=== PATIENT | female | born 1960 | race Caucasian/White ===

== ENCOUNTER 2017-07-05 11:22 | Emergency (ER) | payer MEDICARE, MEDICAID ==
[2017-07-05] MEDS ORDERED: NS 0.9% 1000 ML* 2,000 ML IV ONE (12:12)
--- NOTE | 2017-07-05 12:49 | RAD ---
Indication: Syncope. Fall. Comparison: No relevant prior exams available on the [facility] PACS for comparison. Technique: Upright AP 1218 hours Report: Clear lungs and pleural spaces. Negative for pneumothorax. The heart, pulmonary vasculature, and mediastinal contours are unremarkable. Unremarkable osseous structures and soft tissue contours. IMPRESSION: No evidence for acute intrathoracic disease.
--- NOTE | 2017-07-05 13:06 | RAD ---
Indication: Fall this morning. RIGHT temporal region tenderness. Comparison: No relevant prior exams available on the [facility] PACS for comparison. Technique: Noncontrast CT vertex of skull through foramen magnum. Report: The sulci, ventricles, and basal cisterns are normal for age. Jaquez matter white matter differentiation is preserved without evidence for edema. Decreased density in the periventricular and subcortical white matter while non-specific is most likely due to chronic microangiopathy. No intra or extra axial hemorrhage, mass, or fluid collection detected. Unremarkable visualized orbital contents. Indolent thickening of the inner table of the frontal bone. No suspicious calvarial or skull base lesions evident. Unremarkable scalp. The visualized paranasal sinuses and mastoid air spaces are clear. IMPRESSION: 1. No CT evidence for traumatic brain injury or acute intracranial process. 2. Stigmata of probable mild chronic small vessel ischemic disease.
[2017-07-05 13:07] LABS: Hematocrit 38 % (35-47); Hemoglobin 12.3 g/dl (12.0-16.0); Mean Corpuscular HGB Conc 32 g/dl (31-36); Mean Corpuscular Hemoglobin 28 pg (27-31); Mean Corpuscular Volume 87 fL (80-97); Mean Platelet Volume 9 um3 (7.4-10.4); Red Blood Count 4.37 10^6/ul (4.0-5.4); Red Cell Distribution Width 15 % (10.5-15); White Blood Count 10.3 10^3/ul (3.5-10.8)
--- NOTE | 2017-07-05 13:16 | RAD ---
INDICATION: Syncopal episode, fall. COMPARISON: No relevant prior exams available on the [facility] PACS for comparison. TECHNIQUE: Multidetector CT images foramen magnum to lung apices without contrast. Multiplanar reformation. REPORT: Normal vertebral alignment accounting for exam positioning without spondylolisthesis or subluxation at any level. Negative for cervical vertebral body or posterior element fracture. 0.6 cm sharply circumscribed hypodense lesion at the LEFT margin of the C3 vertebral body most likely represents a hemangioma or cyst. Negative for paravertebral hematoma. At C5-C6 there is severe disc space narrowing as well as a moderate dorsal disc osteophyte complex which results in mild to moderate acquired central canal stenosis. Uncinate process spurring results in mild RIGHT and moderate LEFT foraminal stenosis. At C6-C7 there is moderately severe disc space narrowing and moderate dorsal disc osteophyte complex with resulting mild to moderate acquired central canal stenosis. Uncinate process spurring and facet joint osteoarthritis results in mild RIGHT and moderately severe LEFT foraminal stenosis. IMPRESSION: 1. No evidence for traumatic cervical spine injury. 2. Multilevel degenerative spondylosis and posterior element osteoarthritis with resulting spinal stenosis as described. MRI is the most accurate way to assess etiology and magnitude of spinal stenosis.
[2017-07-05 13:23] LABS: ALT 30 U/L (7-52); AST 28 U/L (13-39); Albumin 4.1 g/dL (3.2-5.2); Alkaline Phosphatase 82 U/L (34-104); Anion Gap 8 mmol/L (2-11); Blood Urea Nitrogen 10 mg/dL (6-24); C Reactive Protein 17.77 mg/L (< 5.00); CO2 Carbon Dioxide 23 mmol/L (22-32); Calcium 9.5 mg/dL (8.6-10.3); Chloride 106 mmol/L (101-111); Creatine Kinase 174 U/L (10-223); EGFR African American 91.5 (>60); EGFR Non-African American 71.1 (>60); Globulin 3.1 g/dL (2-4); Glucose 101 mg/dL (70-100); Lipase 25 U/L (11.0-82.0); Magnesium 2.2 mg/dL (1.9-2.7); Potassium 3.7 mmol/L (3.5-5.0); Sodium 137 mmol/L (133-145); Total Protein 7.2 g/dL (6.4-8.9)
[2017-07-05 13:52] LABS: Acetaminophen < 15 mcg/mL; Alcohol < 10 mg/dL (<10); Salicylate < 2.50 mg/dL (<30)
[2017-07-05 14:03] LABS: TSH (Thyroid Stimulating Horm) 2.96 mcIU/mL (0.34-5.60)
[2017-07-05 15:46] LABS: Urine Bilirubin Negative (Negative); Urine Glucose Negative (Negative); Urine Nitrite Negative (Negative)
[2017-07-05 18:09] VITALS: BP 124/72
--- NOTE | 2017-07-05 21:44 | ED ---
Anna Taylor Alfonso, scribed for Ervin Hamilton MD on 07/05/17 at 1203 . Syncope/Near Syncope - HPI Summary HPI Summary: This patient is a 57 year old F presenting to [facility] accompanied by family with a chief complaint of syncope at approximately 0100 today. She states I think it was vasovagal and I was tired and was pooping at the same time. She also states I was on the floor and I didnt know how I got there. This syncopal episode was witnessed by a male who heard her moaning and there was a big thud when she hit the ground. The male states I didnt get an answer 3 times when asking if she was alright. A female family member states she had her pants down and there was still some feces on her. The patient rates the pain 6/10 in severity. Symptoms alleviated by spontaneous resolution. Patient reports dehydration (last night), constipation (with burning sensation), palpitations, right sided neck pain, dizziness, disorientation, and difficulty with memory ( not a recent onset). Male family member reports pt confusion, and hearing voices of another family members psychologist. Patient denies rhinorrhea, sore throat, diarrhea, vomiting, CP, SOB, loss of appetite, motor deficits, headache, vision changes, and difficulty with speech. Female family member denies head trauma. Pt denies recent illness. She denies having a syncopal episode in the past 10 years. PMHx includes sleep apnea, arthritis, and depression. - History Of Current Complaint Chief Complaint: EDSyncope Time Seen by Provider: 07/05/17 11:53 Hx Obtained From: Patient, Family/[employer]rain [employer] Onset/Duration: Sudden Onset - 0100, Resolved Timing: Constant Context: Witnessed Activity At Onset: Other - "I was tired and was pooping at the same time. Alleviating Factor(s): Spontaneous Resolution Associated Signs And Symptoms: Other - Patient reports dehydration (last night) , constipation (with burning sensation), palpitations, right sided neck pain, dizziness, disorientation, and difficulty with memory (not a recent onset). Male family member reports pt confusion, and hearing voices of another family members psychologist. Patient denies rhinorrhea, sore throat, diarrhea, vomiting, CP, SOB, loss of appetite, motor deficits, headache, vision changes, and difficulty with speech. Female family member denies head trauma. Frequency: Episodes x___ - 1 PMH/Surg Hx/FS Hx/Imm Hx Respiratory History: Reports: Hx Sleep Apnea Musculoskeletal History: Reports: Hx Arthritis Psychiatric History: Reports: Hx Depression - Cancer History Hx Chemotherapy: No Hx Radiation Therapy: No Infectious Disease History: No Infectious Disease History: Denies: Traveled Outside the [place] in Last 30 Days - Family History Known Family History: Positive: Other - Breast cancer Negative: Cardiac Disease, Diabetes - Social History Alcohol Use: None Hx Substance Use: No Substance Use Type: Reports: None Hx Tobacco Use: No Review of Systems Negative: Sore Throat, Nasal Discharge Positive: Palpitations. Negative: Chest Pain Negative: Shortness Of Breath Positive: Other - dehydration (last night), constipation (with burning sensation ); negative loss of appetite. Negative: Vomiting, Diarrhea Positive: Other - right sided neck pain; negative motor deficits Neurological: Other - dizziness, disorientation, and difficulty with memory ( not a recent onset), confusion, and hearing voices of another family members psychologist. ; Negative vision changes, difficulty with speech, and head trauma Positive: Syncope. Negative: Headache All Other Systems Reviewed And Are Negative: Yes Physical Exam Triage Information Reviewed: Yes Vital Signs On Initial Exam: Initial Vitals Temp Pulse Resp BP Pulse Ox 97.8 F 64 16 129/71 98 07/05/17 11:30 07/05/17 11:30 07/05/17 11:30 07/05/17 11:30 07/05/17 11:30 Vital Signs Reviewed: Yes Appearance: Positive: Well-Appearing, No Pain Distress Skin: Positive: Warm, Skin Color Reflects Adequate Perfusion, Dry Head/Face: Positive: Other - Mild tenderness right temporal area. Eyes: Positive: EOMI, KARL ENT: Positive: Other - Dry oral mucosa Neck: Positive: Supple, Other: - Mid neck near C3 mild tenderness to palpation. FROM. Respiratory/Lung Sounds: Positive: Clear to Auscultation, Breath Sounds Present Cardiovascular: Positive: RRR Abdomen Description: Positive: Nontender, Soft Bowel Sounds: Positive: Present Musculoskeletal: Positive: Normal, Strength/ROM Intact Neurological: Positive: Normal, Sensory/Motor Intact, Alert, Oriented to Person Place, Time Psychiatric: Positive: Affect/Mood Appropriate Diagnostics - Vital Signs Vital Signs Temp Pulse Resp BP Pulse Ox 07/05/17 11:30 97.8 F 64 16 129/71 98 - Laboratory Lab Results: Lab Results 07/05/17 07/05/17 07/05/17 Range/Units 12:45 12:45 12:45 WBC 10.3 (3.5-10.8) 10^3/ul RBC 4.37 (4.0-5.4) 10^6/ul Hgb 12.3 (12.0-16.0) g/dl Hct 38 (35-47) % MCV 87 (80-97) fL MCH 28 (27-31) pg MCHC 32 (31-36) g/dl RDW 15 (10.5-15) % Plt Count 233 (150-450) 10^3/ul MPV 9 (7.4-10.4) um3 Neut % (Auto) 68.2 (38-83) % Lymph % (Auto) 23.5 L (25-47) % [place] % (Auto) 6.8 (1-9) % Eos % (Auto) 1.0 (0-6) % Baso % (Auto) 0.5 (0-2) % Absolute Neuts (auto) 7.0 (1.5-7.7) 10^3/ul Absolute Lymphs (auto) 2.4 (1.0-4.8) 10^3/ul Absolute Monos (auto) 0.7 (0-0.8) 10^3/ul Absolute Eos (auto) 0.1 (0-0.6) 10^3/ul Absolute Basos (auto) 0.1 (0-0.2) 10^3/ul Absolute Nucleated RBC 0 10^3/ul Nucleated RBC % 0 INR (Anticoag Therapy) 1.15 H (0.89-1.11) APTT 33.4 (26.0-36.3) seconds Sodium 137 (133-145) mmol/L Potassium 3.7 (3.5-5.0) mmol/L Chloride 106 (101-111) mmol/L Carbon Dioxide 23 (22-32) mmol/L Anion Gap 8 (2-11) mmol/L BUN 10 (6-24) mg/dL Creatinine 0.83 (0.51-0.95) mg/dL Est GFR ( Amer) 91.5 (>60) Est GFR (Non-Af Amer) 71.1 (>60) BUN/Creatinine Ratio 12.0 (8-20) Glucose 101 H (70-100) mg/dL Lactic Acid (0.5-2.0) mmol/L Calcium 9.5 (8.6-10.3) mg/dL Magnesium 2.2 (1.9-2.7) mg/dL Total Bilirubin 0.40 (0.2-1.0) mg/dL AST 28 (13-39) U/L ALT 30 (7-52) U/L Alkaline Phosphatase 82 (34-104) U/L Total Creatine Kinase 174 (10-223) U/L CK-MB (CK-2) 2.4 (0.6-6.3) ng/mL Troponin I 0.00 (<0.04) ng/mL C-Reactive Protein 17.77 H (< 5.00) mg/L Total Protein 7.2 (6.4-8.9) g/dL Albumin 4.1 (3.2-5.2) g/dL Globulin 3.1 (2-4) g/dL Albumin/Globulin Ratio 1.3 (1-3) Lipase 25 (11.0-82.0) U/L TSH 2.96 (0.34-5.60) mcIU/mL Urine Color Urine Appearance Urine pH (5-9) Ur Specific [place] (1.010-1.030) Urine Protein (Negative) Urine Ketones (Negative) Urine Blood (Negative) Urine Nitrate (Negative) Urine Bilirubin (Negative) Urine Urobilinogen (Negative) Ur Leukocyte Esterase (Negative) Urine Glucose (Negative) Salicylates < 2.50 (<30) mg/dL Acetaminophen < 15 mcg/mL Serum Alcohol < 10 (<10) mg/dL 07/05/17 07/05/17 Range/Units 12:45 14:49 WBC (3.5-10.8) 10^3/ul RBC (4.0-5.4) 10^6/ul Hgb (12.0-16.0) g/dl Hct (35-47) % MCV (80-97) fL MCH (27-31) pg MCHC (31-36) g/dl RDW (10.5-15) % Plt Count (150-450) 10^3/ul MPV (7.4-10.4) um3 Neut % (Auto) (38-83) % Lymph % (Auto) (25-47) % [place] % (Auto) (1-9) % Eos % (Auto) (0-6) % Baso % (Auto) (0-2) % Absolute Neuts (auto) (1.5-7.7) 10^3/ul Absolute Lymphs (auto) (1.0-4.8) 10^3/ul Absolute Monos (auto) (0-0.8) 10^3/ul Absolute Eos (auto) (0-0.6) 10^3/ul Absolute Basos (auto) (0-0.2) 10^3/ul Absolute Nucleated RBC 10^3/ul Nucleated RBC % INR (Anticoag Therapy) (0.89-1.11) APTT (26.0-36.3) seconds Sodium (133-145) mmol/L Potassium (3.5-5.0) mmol/L Chloride (101-111) mmol/L Carbon Dioxide (22-32) mmol/L Anion Gap (2-11) mmol/L BUN (6-24) mg/dL Creatinine (0.51-0.95) mg/dL Est GFR ( Amer) (>60) Est GFR (Non-Af Amer) (>60) BUN/Creatinine Ratio (8-20) Glucose (70-100) mg/dL Lactic Acid 0.6 (0.5-2.0) mmol/L Calcium (8.6-10.3) mg/dL Magnesium (1.9-2.7) mg/dL Total Bilirubin (0.2-1.0) mg/dL AST (13-39) U/L ALT (7-52) U/L Alkaline Phosphatase (34-104) U/L Total Creatine Kinase (10-223) U/L CK-MB (CK-2) (0.6-6.3) ng/mL Troponin I (<0.04) ng/mL C-Reactive Protein (< 5.00) mg/L Total Protein (6.4-8.9) g/dL Albumin (3.2-5.2) g/dL Globulin (2-4) g/dL Albumin/Globulin Ratio (1-3) Lipase (11.0-82.0) U/L TSH (0.34-5.60) mcIU/mL Urine Color Straw Urine Appearance Clear Urine pH 6.0 (5-9) Ur Specific [place] 1.004 L (1.010-1.030) Urine Protein Negative (Negative) Urine Ketones Trace H (Negative) Urine Blood Negative (Negative) Urine Nitrate Negative (Negative) Urine Bilirubin Negative (Negative) Urine Urobilinogen Negative (Negative) Ur Leukocyte Esterase Negative (Negative) Urine Glucose Negative (Negative) Salicylates (<30) mg/dL Acetaminophen mcg/mL Serum Alcohol (<10) mg/dL Result Diagrams: 07/05/17 12:45 07/05/17 12:45 Lab Statement: Any lab studies that have been ordered have been reviewed, and results considered in the medical decision making process. - Radiology CXR Radiology Interpretation Completed By: Radiologist - No evidence for acute intrathoracic disease. ED physician has reviewed this radiology report and agrees. - CT Brain CT Interpretation Completed By: Radiologist - 1. No CT evidence for traumatic brain injury or acute intracranial process. 2. Stigmata of probable mild chronic small vessel ischemic disease. ED physician has reviewed this radiology report and agrees. C-Spine CT Interpretation Completed By: Radiologist - 1. No evidence for traumatic cervical spine injury. 2. Multilevel degenerative spondylosis and posterior element osteoarthritis with resulting spinal stenosis as described. MRI is the most accurate way to assess etiology and magnitude of spinal stenosis. ED physician has reviewed this radiology report and agrees. - EKG 1148 Cardiac Rate: NL - BPM 67 EKG Rhythm: Sinus Rhythm ST Segment: Normal Ectopy: None Course/Dx Course Of Treatment: DISCUSSED RESULTS WITH PATINET/FAMILY. THEY REQUEST A MHE. DISCHARGE HOME AFTER MHE. NO CRITICAL CARE TIME. - Diagnoses Provider Diagnoses: Syncope, Mental health problem Discharge - Discharge Plan Condition: Stable Disposition: HOME Patient Education Materials: Syncope (ED) Referrals: [facility] [Outside] - 07/06/17 (Keep your schedule appointment) Asher Interiano MD [Primary Care Provider] - Additional Instructions: FOLLOW UP WITH YOUR DOCTOR. RETURN TO THE EMERGENCY DEPARTMENT FOR ANY WORSENING OF YOUR CONDITION OR QUESTIONS OR CONCERNS. The documentation as recorded by the Anna taylor Alfonso accurately reflects the service I personally performed and the decisions made by me, Ervin Hamilton MD.
== END 2017-07-05 19:39 | disposition home or self-care (01) ==
LOC: ED 11:22
DX: R55 Syncope and collapse (principal); F99 Mental disorder, not otherwise specified; W19.XXXA Unspecified fall, initial encounter; Y92.9 Unspecified place or not applicable; F32.9 Major depressive disorder, single episode, unspecified; M19.90 Unspecified osteoarthritis, unspecified site
CPT/HCPCS: 36415; 70450; 71010; 72125; 80053; 80320; 80329; 81003; 82550; 82553; 83605; 83690; 83735; 84443; 84484; 85025; 85610; 85730; 86140; 93005; 96360; 99284; G0480

== ENCOUNTER → 2017-07-08 16:45 | Emergency (ER) | payer MEDICARE, MEDICAID ==
[2017-07-08 18:20] LABS: Hematocrit 39 % (35-47); Hemoglobin 12.4 g/dl (12.0-16.0); Mean Corpuscular HGB Conc 32 g/dl (31-36); Mean Corpuscular Hemoglobin 28 pg (27-31); Mean Corpuscular Volume 88 fL (80-97); Mean Platelet Volume 9 um3 (7.4-10.4); Red Cell Distribution Width 15 % (10.5-15); White Blood Count 10.9 10^3/ul (3.5-10.8)
[2017-07-08 18:40] LABS: ALT 25 U/L (7-52); AST 28 U/L (13-39); Alkaline Phosphatase 78 U/L (34-104); Anion Gap 5 mmol/L (2-11); BUN/Creatinine Ratio 14.3 (8-20); Blood Urea Nitrogen 12 mg/dL (6-24); CO2 Carbon Dioxide 27 mmol/L (22-32); Calcium 9.6 mg/dL (8.6-10.3); Chloride 106 mmol/L (101-111); EGFR African American 90.2 (>60); EGFR Non-African American 70.1 (>60); Globulin 3.1 g/dL (2-4); Glucose 109 mg/dL (70-100); Potassium 3.6 mmol/L (3.5-5.0); Sodium 138 mmol/L (133-145); Total Protein 7.1 g/dL (6.4-8.9)
[2017-07-08 18:40] LABS: Urine Bilirubin Negative (Negative); Urine Glucose Negative (Negative); Urine Nitrite Negative (Negative)
[2017-07-08 18:43] LABS: Urine Bacteria 1+ (Absent)
[2017-07-08 18:43] LABS: Benzodiazepine Urine Screen None Detected (None Detect)
[2017-07-08 18:46] LABS: Acetaminophen < 15 mcg/mL; Alcohol < 10 mg/dL (<10); Salicylate < 2.50 mg/dL (<30)
[2017-07-08 18:52] LABS: TSH (Thyroid Stimulating Horm) 2.59 mcIU/mL (0.34-5.60)
[2017-07-09 10:35] VITALS: BP 139/85
--- NOTE | 2017-07-09 18:46 | ED ---
Abel Taylor Angela, scribed for Jorge Pantoja MD on 07/09/17 at 1012 . Progress - Progress Note Progress Note: This patient is a 57 year old female brought in by police 945 to [facility]. This pt was signed out from Dr. Villegas to follow up with E recommendation. Dr. Frank consulted with this pt. The pt has auditory hallucinations and takes injection of Risperidone at [facility]. Dr. Frank recommends the pt to be discharged. Pt will be discharged to home in stable condition with a diagnosis of schizoaffective disorder. Course/Dx - Course Course Of Treatment: This pt was signed out from Dr. Villegas to follow up with E recommendation. Dr. Frank consulted with this pt. The pt has auditory hallucinations and takes medications at [facility]. Dr. Frank recommends the pt to be discharged. Pt will be discharged to home in stable condition with a diagnosis of schizoaffective disorder. - Diagnoses Provider Diagnoses: Schizoaffective disorder The documentation as recorded by the Abel taylor Angela accurately reflects the service I personally performed and the decisions made by in, Jorge Pantoja MD.
== END | disposition home or self-care (01) ==
LOC: ED 16:45
DX: F25.9 Schizoaffective disorder, unspecified (principal)
CPT/HCPCS: 36415; 80053; 80307; 80320; 80329; 81003; 81015; 84443; 85025; 87086; 99284; G0480

== ENCOUNTER 2017-07-23 15:12 | Inpatient (IN) | payer MEDICARE, MEDICAID ==
[2017-07-23 16:16] LABS: Hematocrit 39 % (35-47); Hemoglobin 12.5 g/dl (12.0-16.0); Mean Corpuscular HGB Conc 32 g/dl (31-36); Mean Corpuscular Hemoglobin 28 pg (27-31); Mean Corpuscular Volume 87 fL (80-97); Mean Platelet Volume 9 um3 (7.4-10.4); Red Blood Count 4.42 10^6/ul (4.0-5.4); Red Cell Distribution Width 15 % (10.5-15); White Blood Count 9.2 10^3/ul (3.5-10.8)
[2017-07-23 16:38] LABS: ALT 26 U/L (7-52); AST 22 U/L (13-39); Albumin 3.9 g/dL (3.2-5.2); Alkaline Phosphatase 77 U/L (34-104); Anion Gap 7 mmol/L (2-11); Blood Urea Nitrogen 6 mg/dL (6-24); CO2 Carbon Dioxide 24 mmol/L (22-32); Calcium 9.1 mg/dL (8.6-10.3); Chloride 108 mmol/L (101-111); EGFR African American 102.8 (>60); EGFR Non-African American 79.9 (>60); Glucose 119 mg/dL (70-100); Potassium 3.6 mmol/L (3.5-5.0); Sodium 139 mmol/L (133-145); Total Protein 6.9 g/dL (6.4-8.9)
[2017-07-23 16:46] LABS: Acetaminophen < 15 mcg/mL; Alcohol < 10 mg/dL (<10); Salicylate < 2.50 mg/dL (<30)
[2017-07-23 17:01] LABS: Urine Bilirubin Negative (Negative); Urine Glucose Negative (Negative); Urine Nitrite Negative (Negative)
[2017-07-23 17:02] LABS: TSH (Thyroid Stimulating Horm) 1.88 mcIU/mL (0.34-5.60)
[2017-07-23 17:14] LABS: Benzodiazepine Urine Screen None Detected (None Detect)
--- NOTE | 2017-07-23 21:37 | ED ---
Jonna Taylor Thomas, scribed for Jorge Nascimento MD on 07/23/17 at 1613 . Psychiatric Complaint - HPI Summary HPI Summary: The pt is a 57 y/o F BIB police after she was combative with neighbors at her place of residence. She is concerned that there are microphones under her carpets and that [employer] are monitoring her. However, she denies paranoia when asked. She was hospitalized for schizoaffective disorder 30 years ago. She is on paroxetine, Risperdal, and Topiramate. She has been taking her medications as directed. She additionally c/o insomnia and I feel like I am sleep-walking. PMHx: osteoarthritis, schizoaffective disorder. PSHx: none. SHx : no smoking, no alcohol use, no illicit drugs. FHx: depression. - History Of Current Complaint Chief Complaint: EDMentalHealth Time Seen by Provider: 07/23/17 15:42 Hx Obtained From: Patient, Other: - She is BIB Police Onset/Duration: Still Present Timing: Constant Severity Currently: Moderate Aggravating Factor(s): Nothing Alleviating Factor(s): Nothing Associated Signs And Symptoms: Positive: Paranoid Behavior, Sleep Disturbance Related History: Positive For: Prior Psychiatric Issues PMH/Surg Hx/FS Hx/Imm Hx Previously Healthy: No Respiratory History: Reports: Hx Sleep Apnea Musculoskeletal History: Reports: Hx Arthritis Psychiatric History: Reports: Hx Depression, Other Psychiatric Issues/Disorders - Schizoaffective disorder Denies: Hx Eating Disorder, Hx of Violent Episodes Against Others - Cancer History Hx Chemotherapy: No Hx Radiation Therapy: No - Surgical History Surgery Procedure, Year, and Place: None Infectious Disease History: No Infectious Disease History: Denies: Traveled Outside the [place] in Last 30 Days - Family History Known Family History: Positive: Other - Depression Negative: Cardiac Disease, Diabetes - Social History Alcohol Use: None Hx Substance Use: No Substance Use Type: Reports: None Hx Tobacco Use: No Smoking Status (MU): Never Smoked Tobacco Review of Systems Neurological: Other - Insomnia Psychological: Other - Paranoia, combativeness, "I feel like I am sleep-walking " All Other Systems Reviewed And Are Negative: Yes Physical Exam Triage Information Reviewed: Yes Vital Signs On Initial Exam: Initial Vitals Temp Pulse Resp BP Pulse Ox 98.1 F 68 20 124/82 95 07/23/17 15:21 07/23/17 15:21 07/23/17 15:21 07/23/17 15:21 07/23/17 15:21 Vital Signs Reviewed: Yes Appearance: Positive: Well-Appearing, No Pain Distress Skin: Positive: Warm, Skin Color Reflects Adequate Perfusion Head/Face: Positive: Normal Head/Face Inspection Eyes: Positive: EOMI Neck: Positive: Supple, Nontender Respiratory/Lung Sounds: Positive: Clear to Auscultation, Breath Sounds Present Cardiovascular: Positive: RRR. Negative: Murmur Abdomen Description: Positive: Nontender Musculoskeletal: Positive: Strength/ROM Intact Neurological: Positive: Sensory/Motor Intact, Alert, Oriented to Person Place, Time, CN Intact II-III Psychiatric: Positive: Anxious, Other - paranoid delusions verbalized to me. Believes microphones under her carpet and [employer] priests are watching her. - [place] Coma Scale Best Eye Response: 4 - Spontaneous Best Motor Response: 6 - Obeys Commands Best Verbal Response: 5 - Oriented Diagnostics - Vital Signs Vital Signs Temp Pulse Resp BP Pulse Ox 07/23/17 15:21 98.1 F 68 20 124/82 95 - Laboratory Lab Results: Lab Results 07/23/17 07/23/17 07/23/17 Range/Units 16:01 16:01 16:45 WBC 9.2 (3.5-10.8) 10^3/ul RBC 4.42 (4.0-5.4) 10^6/ul Hgb 12.5 (12.0-16.0) g/dl Hct 39 (35-47) % MCV 87 (80-97) fL MCH 28 (27-31) pg MCHC 32 (31-36) g/dl RDW 15 (10.5-15) % Plt Count 254 (150-450) 10^3/ul MPV 9 (7.4-10.4) um3 Neut % (Auto) 69.2 (38-83) % Lymph % (Auto) 21.4 L (25-47) % [place] % (Auto) 7.5 (1-9) % Eos % (Auto) 1.2 (0-6) % Baso % (Auto) 0.7 (0-2) % Absolute Neuts (auto) 6.4 (1.5-7.7) 10^3/ul Absolute Lymphs (auto) 2.0 (1.0-4.8) 10^3/ul Absolute Monos (auto) 0.7 (0-0.8) 10^3/ul Absolute Eos (auto) 0.1 (0-0.6) 10^3/ul Absolute Basos (auto) 0.1 (0-0.2) 10^3/ul Absolute Nucleated RBC 0 10^3/ul Nucleated RBC % 0 Sodium 139 (133-145) mmol/L Potassium 3.6 (3.5-5.0) mmol/L Chloride 108 (101-111) mmol/L Carbon Dioxide 24 (22-32) mmol/L Anion Gap 7 (2-11) mmol/L BUN 6 (6-24) mg/dL Creatinine 0.75 (0.51-0.95) mg/dL Est GFR ( Amer) 102.8 (>60) Est GFR (Non-Af Amer) 79.9 (>60) BUN/Creatinine Ratio 8.0 (8-20) Glucose 119 H (70-100) mg/dL Calcium 9.1 (8.6-10.3) mg/dL Total Bilirubin 0.50 (0.2-1.0) mg/dL AST 22 (13-39) U/L ALT 26 (7-52) U/L Alkaline Phosphatase 77 (34-104) U/L Total Protein 6.9 (6.4-8.9) g/dL Albumin 3.9 (3.2-5.2) g/dL Globulin 3.0 (2-4) g/dL Albumin/Globulin Ratio 1.3 (1-3) TSH 1.88 (0.34-5.60) mcIU/mL Urine Color Urine Appearance Urine pH (5-9) Ur Specific [place] (1.010-1.030) Urine Protein (Negative) Urine Ketones (Negative) Urine Blood (Negative) Urine Nitrate (Negative) Urine Bilirubin (Negative) Urine Urobilinogen (Negative) Ur Leukocyte Esterase (Negative) Urine Glucose (Negative) Salicylates < 2.50 (<30) mg/dL Urine Opiates Screen None detected (None Detect) Acetaminophen < 15 mcg/mL Ur Barbiturates Screen None detected (None Detect) Ur Phencyclidine Scrn None detected (None Detect) Ur Amphetamines Screen None detected (None Detect) U Benzodiazepines Scrn None detected (None Detect) Urine Cocaine Screen None detected (None Detect) U Cannabinoids Screen None detected (None Detect) Serum Alcohol < 10 (<10) mg/dL 07/23/17 Range/Units 16:45 WBC (3.5-10.8) 10^3/ul RBC (4.0-5.4) 10^6/ul Hgb (12.0-16.0) g/dl Hct (35-47) % MCV (80-97) fL MCH (27-31) pg MCHC (31-36) g/dl RDW (10.5-15) % Plt Count (150-450) 10^3/ul MPV (7.4-10.4) um3 Neut % (Auto) (38-83) % Lymph % (Auto) (25-47) % [place] % (Auto) (1-9) % Eos % (Auto) (0-6) % Baso % (Auto) (0-2) % Absolute Neuts (auto) (1.5-7.7) 10^3/ul Absolute Lymphs (auto) (1.0-4.8) 10^3/ul Absolute Monos (auto) (0-0.8) 10^3/ul Absolute Eos (auto) (0-0.6) 10^3/ul Absolute Basos (auto) (0-0.2) 10^3/ul Absolute Nucleated RBC 10^3/ul Nucleated RBC % Sodium (133-145) mmol/L Potassium (3.5-5.0) mmol/L Chloride (101-111) mmol/L Carbon Dioxide (22-32) mmol/L Anion Gap (2-11) mmol/L BUN (6-24) mg/dL Creatinine (0.51-0.95) mg/dL Est GFR ( Amer) (>60) Est GFR (Non-Af Amer) (>60) BUN/Creatinine Ratio (8-20) Glucose (70-100) mg/dL Calcium (8.6-10.3) mg/dL Total Bilirubin (0.2-1.0) mg/dL AST (13-39) U/L ALT (7-52) U/L Alkaline Phosphatase (34-104) U/L Total Protein (6.4-8.9) g/dL Albumin (3.2-5.2) g/dL Globulin (2-4) g/dL Albumin/Globulin Ratio (1-3) TSH (0.34-5.60) mcIU/mL Urine Color Yellow Urine Appearance Cloudy Urine pH 5.0 (5-9) Ur Specific [place] 1.017 (1.010-1.030) Urine Protein Negative (Negative) Urine Ketones Trace H (Negative) Urine Blood Negative (Negative) Urine Nitrate Negative (Negative) Urine Bilirubin Negative (Negative) Urine Urobilinogen Negative (Negative) Ur Leukocyte Esterase Negative (Negative) Urine Glucose Negative (Negative) Salicylates (<30) mg/dL Urine Opiates Screen (None Detect) Acetaminophen mcg/mL Ur Barbiturates Screen (None Detect) Ur Phencyclidine Scrn (None Detect) Ur Amphetamines Screen (None Detect) U Benzodiazepines Scrn (None Detect) Urine Cocaine Screen (None Detect) U Cannabinoids Screen (None Detect) Serum Alcohol (<10) mg/dL Result Diagrams: 07/23/17 16:01 07/23/17 16:01 Lab Statement: Any lab studies that have been ordered have been reviewed, and results considered in the medical decision making process. Course/Dx - Course Course Of Treatment: 57 yr old with paranoid delusions. Psych eval. - Differential Dx/Clinical Impression Provider Diagnosis: Psychosis Discharge - Discharge Plan Condition: Good Disposition: OTHER Discharge Disposition Comment: sign out Dr Mitchell 2200 with psych eval and dispo pending. Referrals: Asher Interiano MD [Primary Care Provider] - The documentation as recorded by the Jonna taylor Thomas accurately reflects the service I personally performed and the decisions made by oh, Jorge Nascimento MD.
[2017-07-24] MEDS ORDERED: Topiramate TAB(*) 25 MG PO ONE (01:32)
[2017-07-24] MEDS ORDERED: Al Hydrox/Mg Hydrox/Simet LIQ* 30 ML UDC PO PRN (04:07)
[2017-07-24] MEDS ORDERED: Vitamin THERAPEUTIC TAB ONE (05:07)
[2017-07-24] MEDS ORDERED: PARoxetine HCL TAB* 20 MG ONE (05:07)
[2017-07-24] MEDS ORDERED: PARoxetine HCL TAB* 10 MG ONE (05:07)
[2017-07-24] MEDS: Vitamin THERAPEUTIC TAB PO SCH (08:24)
[2017-07-24] MEDS ORDERED: PARoxetine HCL TAB* 10 MG PO SCH (09:00)
--- NOTE | 2017-07-24 14:34 | PN ---
[facility]: Group Therapy Note - Service Type Service Type: 14918 Group Psychotherapy - Cognitive Behavioral Group Therapy ( CBT):Patient was attentive and participatory in CBT programming this morning, and remained in good behavioral control. Patient expressed positive insights regarding relevant treatment interventions and goals.
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
[2017-07-24] MEDS ORDERED: PARoxetine HCL TAB* 20 MG PO SCH (21:00)
[2017-07-24] MEDS: risperiDONE TAB* 2 MG PO SCH (21:05)
[2017-07-25] MEDS: Vitamin THERAPEUTIC TAB PO SCH (09:40)
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
[2017-07-26] MEDS: Vitamin THERAPEUTIC TAB PO SCH (09:27)
[2017-07-26] MEDS: risperiDONE TAB* 2 MG PO SCH ×2 (17:55→20:32)
[2017-07-27] MEDS: Vitamin THERAPEUTIC TAB PO SCH (08:51)
--- NOTE | 2017-07-27 15:30 | PN ---
Subjective - Subjective Subjective: Juan c/o poor sleep last night but feeling better able to organize her thoughts today. She denies side effects from prescribed meds. Per staff, she is social with peers, and adherent to unit's routines. Objective - Appearance Appearance: Healthy Appearing Dysmorphic Features: No Hygiene: Normal Grooming: Well Kept - Behavior Motor Skills: Fine Motor Skills: Normal, Gross Motor Skills: Normal, Gait: Normal Psychomotor Activities: Normal Exhibits Abnormal Movement: No - Attitude and Relatedness Attitude and Relatedness: Cooperative Eye Contact: Fair - Speech Quality: Unpressured Latencies: Normal Quantity: Appropriate - Mood Patient's Decription of Mood: "Okay" - Affect Observed Affect: Non-labile Affect Consistent with: Euthymia - Thought Process Patient's Thought Process: Coherent Thought Content: No Passive Wish, No Suicidal Planning, No Homicidal Ideation, No Paranoid Ideation - Sensorium Delusions: No Experiencing Hallucinations: No, Sensorium is Clear - Level of Consciousness Level of Consciousness: Alert Orientation: Yes Intact - Impulse Control Impulse Control: Intact - Insight and Judgement Insight and Judgement: Fair Assessment - Assessment Merits Inpatient Hospitalization: For Ongoing Evaluation, Consolidate Improvements, For Discharge Planning Inpatient DSM-IV Dx: Schizophrenia; Plan - Treatment Plan Medications: Current Medications Acetaminophen (Tylenol Tab*) 650 mg PO Q4H PRN PRN Reason: PAIN or TEMP > 101 F Al Hydrox/Mg Hydrox/Simethicone (Maalox Plus*) 30 ml PO Q4H PRN PRN Reason: INDIGESTION Multivitamins (Theragran Tab*) 1 tab PO DAILY [facility]IKUNJ Last Admin: 07/27/17 08:51 Dose: Not Given Risperidone (Risperdal*) 2 mg PO BEDTIME [facility] Last Admin: 07/26/17 20:32 Dose: 2 mg
--- NOTE | 2017-07-27 15:38 | PN ---
Subjective - Subjective Subjective: Juan c/o poor sleep last night but feeling better able to organize her thoughts today. She denies side effects from prescribed meds. Per staff, she is social with peers, and adherent to unit's routines. Objective - Appearance Appearance: Healthy Appearing Dysmorphic Features: No Hygiene: Normal Grooming: Well Kept - Behavior Psychomotor Activities: Normal Exhibits Abnormal Movement: No - Attitude and Relatedness Attitude and Relatedness: Cooperative - Speech Quality: Unpressured Latencies: Normal Quantity: Appropriate - Mood Patient's Decription of Mood: "Okay" - Affect Observed Affect: Non-labile Affect Consistent with: Dysphoria - Thought Process Patient's Thought Process: Coherent, Goal Directed Thought Content: No Passive Wish, No Suicidal Planning, No Homicidal Ideation, No Paranoid Ideation - Sensorium Experiencing Hallucinations: No, Sensorium is Clear - Level of Consciousness Level of Consciousness: Alert Orientation: Yes Intact - Impulse Control Impulse Control: Intact - Insight and Judgement Insight and Judgement: Poor - Group Participation Particating in Group Activities: Yes - Medication Management Medication Management Adherence: Yes Assessment - Assessment Merits Inpatient Hospitalization: For Ongoing Evaluation, Consolidate Improvements, For Discharge Planning Inpatient DSM-IV Dx: Schizophrenia; Clinical Impression: Stabilizing in this structured setting, tolerating trials of Invega and Risperidone. Needs continued admission for consolidation. Plan - Plan Treatment Plan: Name: YAHIR ALEXANDRE Birthdate: 1960 [id number] Continued Medication Management: Continue Outpt Medication Medications: Current Medications Acetaminophen (Tylenol Tab*) 650 mg PO Q4H PRN PRN Reason: PAIN or TEMP > 101 F Al Hydrox/Mg Hydrox/Simethicone (Maalox Plus*) 30 ml PO Q4H PRN PRN Reason: INDIGESTION Multivitamins (Theragran Tab*) 1 tab PO DAILY [facility] Last Admin: 07/27/17 08:51 Dose: Not Given Risperidone (Risperdal*) 2 mg PO BEDTIME [facility] Last Admin: 07/26/17 20:32 Dose: 2 mg - Discharge Plan Discharge Plan: Outpatient Follow Up Outpatient Program: [facility]
[2017-07-27] MEDS: risperiDONE TAB* 2 MG PO SCH (21:11)
[2017-07-28] MEDS: Vitamin THERAPEUTIC TAB PO SCH (08:59)
[2017-07-28] MEDS ORDERED: LORazepam TAB(*) 1 MG PO PRN (12:27)
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
[2017-07-28] MEDS ORDERED: Paliperidone TAB* 6 MG PO SCH (21:00)
[2017-07-29] MEDS: Vitamin THERAPEUTIC TAB PO SCH (08:38)
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
[2017-07-29] MEDS: Acetaminophen TAB* 325 MG PO PRN ×2 (12:49→21:28)
[2017-07-29] MEDS: Paliperidone TAB* 9 MG PO SCH ×2 (21:02→21:14)
[2017-07-29] MEDS: clonazePAM TAB(*) 1 MG PO PRN (23:45)
[2017-07-30] MEDS: Vitamin THERAPEUTIC TAB PO SCH (09:54)
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
--- NOTE | 2017-07-30 14:17 | PN ---
MHU: Group Therapy Note - Service Type Service Type: [id number] Group Psychotherapy - Cognitive Behavioral Group Therapy ( CBT):Patient was attentive and participatory in CBT programming this morning, and remained in good behavioral control. Patient expressed positive insights regarding relevant treatment interventions and goals.
[2017-07-30] MEDS: Acetaminophen TAB* 325 MG PO PRN (16:13)
[2017-07-30] MEDS: [UNRECOGNIZED DRUG - OTHER] PO SCH (20:52)
[2017-07-31] MEDS: Vitamin THERAPEUTIC TAB PO SCH (10:57)
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
[2017-07-31] MEDS: [UNRECOGNIZED DRUG - OTHER] PO SCH (20:27)
[2017-07-31] MEDS: Acetaminophen TAB* 325 MG PO PRN (20:28)
[2017-08-01] MEDS: Vitamin THERAPEUTIC TAB PO SCH (09:22)
[2017-08-01] MEDS: [UNRECOGNIZED DRUG - OTHER] PO SCH (21:08)
[2017-08-02] MEDS: Acetaminophen TAB* 325 MG PO PRN (09:04)
[2017-08-02] MEDS: Vitamin THERAPEUTIC TAB PO SCH (09:04)
[2017-08-02] MEDS: [UNRECOGNIZED DRUG - OTHER] PO SCH ×2 (20:36→20:39)
[2017-08-03] MEDS: Vitamin THERAPEUTIC TAB PO SCH (08:29)
[2017-08-03] MEDS: Acetaminophen TAB* 325 MG PO PRN (09:12)
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
[2017-08-03] MEDS: [UNRECOGNIZED DRUG - OTHER] PO SCH (20:49)
[2017-08-04 07:59] LABS: HDL Cholesterol 31.3 mg/dL
[2017-08-04] MEDS: Acetaminophen TAB* 325 MG PO PRN (08:33)
[2017-08-04] MEDS: Vitamin THERAPEUTIC TAB PO SCH (08:33)
[2017-08-04] MEDS: [UNRECOGNIZED DRUG - OTHER] PO SCH (20:47)
[2017-08-05] MEDS: Acetaminophen TAB* 325 MG PO PRN ×2 (08:19→16:28)
[2017-08-05] MEDS: Vitamin THERAPEUTIC TAB PO SCH (08:20)
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
[2017-08-05] MEDS: [UNRECOGNIZED DRUG - OTHER] PO SCH (21:06)
[2017-08-06] MEDS: Vitamin THERAPEUTIC TAB PO SCH (08:58)
[2017-08-06] MEDS: Acetaminophen TAB* 325 MG PO PRN ×2 (08:58→20:03)
--- NOTE | 2017-08-06 16:40 | PN ---
MHU: Group Therapy Note - Service Type Service Type: [id number] Group Psychotherapy - Medication Education Group: Patient was attentive and participatory in group, and remained in good behavioral control. Patient expressed positive insights regarding relevant treatment interventions. Patient stated understanding of material discussed and had appropriate questions.
[2017-08-06] MEDS: [UNRECOGNIZED DRUG - OTHER] PO SCH (20:03)
[2017-08-07] MEDS: Vitamin THERAPEUTIC TAB PO SCH (09:25)
[2017-08-07] MEDS: Acetaminophen TAB* 325 MG PO PRN ×2 (09:26→18:17)
--- NOTE | 2017-08-07 12:03 | PN ---
MHU: Group Therapy Note - Service Type Service Type: [id number] Group Psychotherapy - Cognitive Behavioral Group Therapy ( CBT):Patient attended CBT programming this morning and presented with flat affect that did not vary with discussion. Although responsive to direct prompts to respond to questions, patient did not engage in spontaneous conversation.
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
[2017-08-07] MEDS: [UNRECOGNIZED DRUG - OTHER] PO SCH (20:44)
[2017-08-08] MEDS: Vitamin THERAPEUTIC TAB PO SCH (08:46)
[2017-08-08] MEDS: Acetaminophen TAB* 325 MG PO PRN ×2 (08:47→20:03)
[2017-08-08] MEDS: [UNRECOGNIZED DRUG - OTHER] PO SCH (20:04)
[2017-08-09] MEDS: Vitamin THERAPEUTIC TAB PO SCH (08:53)
[2017-08-09] MEDS: Acetaminophen TAB* 325 MG PO PRN ×2 (08:53→20:41)
[2017-08-09] MEDS: clonazePAM TAB(*) 1 MG PO PRN (08:53)
[2017-08-09] MEDS: [UNRECOGNIZED DRUG - OTHER] PO SCH (20:41)
[2017-08-10] MEDS: Acetaminophen TAB* 325 MG PO PRN ×3 (08:35→21:02)
[2017-08-10] MEDS: Vitamin THERAPEUTIC TAB PO SCH (08:35)
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
[2017-08-10] MEDS: [UNRECOGNIZED DRUG - OTHER] PO SCH (21:01)
[2017-08-11] MEDS: Vitamin THERAPEUTIC TAB PO SCH (09:07)
[2017-08-11] MEDS: Acetaminophen TAB* 325 MG PO PRN ×2 (09:08→16:26)
[2017-08-11 09:56] VITALS: BP 112/70
[2017-08-11] MEDS ORDERED: Paliperidone SUSTENNA* 234 MG/1.5 ML IM ONE (13:00)
[2017-08-11] MEDS ORDERED: risperiDONE TAB* 3 MG PO SCH (21:00)
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
== END 2017-08-11 18:40 | disposition home or self-care (01) | DRG 885 ==
LOC: ED 15:12 → BSU 07-24 04:28
PROVIDERS: ADMIT Psychiatry & Neurology Psychiatry; ATTEND Psychiatry & Neurology Psychiatry
PROC: GZHZZZZ Group Psychotherapy (ICD-10-PCS; principal; 2017-07-24)
DX: F20.9 Schizophrenia, unspecified (principal); E66.9 Obesity, unspecified; G47.30 Sleep apnea, unspecified; R73.03 Prediabetes; R32 Unspecified urinary incontinence; F21 Schizotypal disorder; M19.90 Unspecified osteoarthritis, unspecified site; Z91.5 Personal history of self-harm; Z88.0 Allergy status to penicillin; Z81.1 Family history of alcohol abuse and dependence; Z81.8 Family history of other mental and behavioral disorders; Z68.39 Body mass index [BMI] 39.0-39.9, adult
CPT/HCPCS: 36415; 80053; 80061; 80307; 80320; 80329; 81003; 83036; 84443; 85025; 90853; 93005; 99222; 99231; 99238; A9270-GY; G0480

== ENCOUNTER 2017-10-15 12:48 | Emergency (ER) | payer MEDICARE, MEDICAID ==
[2017-10-15 14:08] LABS: ABS Basophils 0.1 10^3/ul (0-0.2); ABS Eosinophils 0.1 10^3/ul (0-0.6); ABS Lymphocytes 2.2 10^3/ul (1.0-4.8); ABS Monocytes 0.7 10^3/ul (0-0.8); ABS Nucleated RBC 0 10^3/ul; Eosinophil % 0.9 % (0-6); Hematocrit 39 % (35-47); Hemoglobin 12.6 g/dl (12.0-16.0); Lymphocyte % 20.3 % (25-47); Mean Corpuscular HGB Conc 32 g/dl (31-36); Mean Corpuscular Hemoglobin 27 pg (27-31); Mean Corpuscular Volume 84 fL (80-97); Mean Platelet Volume 9 um3 (7.4-10.4); Nucleated Red Blood Cells % 0; Platelet Count 242 10^3/ul (150-450); Red Blood Count 4.68 10^6/ul (4.0-5.4); Red Cell Distribution Width 15 % (10.5-15); White Blood Count 11.1 10^3/ul (3.5-10.8)
[2017-10-15 14:25] LABS: EGFR Non-African American 77.5 (>60)
[2017-10-15 14:40] LABS: Urine Appearance Cloudy; Urine Blood Negative (Negative); Urine Color Yellow; Urine Ketones Trace (Negative); Urine Protein Negative (Negative); Urine Specific Gravity 1.025 (1.010-1.030); Urine Urobilinogen Negative (Negative)
[2017-10-15 16:37] VITALS: BP 136/90
--- NOTE | 2017-10-15 22:14 | ED ---
Psychiatric Complaint - HPI Summary HPI Summary: Patient presents to the ED with CC of feeling "tired of just getting up everyday." Denies SI or HI. Denies self harm or attempts. Denies health problems. She is currently taking risperdone. She states she has been having family issues and has been more depressed lately because of it. Denies ETOH or drug use. Nursing note on arrival: labs were drawn and sent pt states that she voluntarily.pt states that she has a hx of depression.states that she was [facility] to [facility] ago and spent 10 days here.states she did well after her discharge.now she is in the process of moving to an appt in [place]. she states this has been extremely stressful.she states that she has frozen food and her medications in her car.states that her brother violeta is helping her move she denies any suicidal or homicidal ideation cooperative on arrival - History Of Current Complaint Chief Complaint: EDMentalHealth Time Seen by Provider: 10/15/17 13:03 Hx Obtained From: Patient ?: No Onset/Duration: Sudden Onset Timing: Constant Severity Initially: Moderate Severity Currently: Moderate Character: Depressed, Anxious Aggravating Factor(s): Recent Stress Alleviating Factor(s): Nothing Associated Signs And Symptoms: Positive: Negative Related History: Positive For: Prior Psychiatric Issues - Risk Factor(s) Completed Suicide Risk Factors: Negative - Allergies/Home Medications Allergies/Adverse Reactions: Allergies Allergy/AdvReac Type Severity Reaction Status Date / Time Ampicillin Allergy Swelling Verified 07/25/17 17:04 PMH/Surg Hx/FS Hx/Imm Hx Previously Healthy: Yes Respiratory History: Reports: Hx Sleep Apnea Musculoskeletal History: Reports: Hx Arthritis Sensory History: Reports: Hx Contacts or Glasses Denies: Hx Hearing Aid Opthamlomology History: Reports: Hx Contacts or Glasses Psychiatric History: Reports: Hx Depression, Other Psychiatric Issues/Disorders - Schizoaffective disorder Denies: Hx Eating Disorder, Hx of Violent Episodes Against Others - Cancer History Hx Chemotherapy: No Hx Radiation Therapy: No - Surgical History Surgery Procedure, Year, and Place: None - Immunization History Hx Pertussis Vaccination: No Immunizations Up to Date: Unable to Obtain/Confirm Infectious Disease History: No Infectious Disease History: Denies: Traveled Outside the [place] in Last 30 Days - Family History Known Family History: Positive: Other - Depression Negative: Cardiac Disease, Diabetes - Social History Occupation: Employed Full-time Lives: With Family Alcohol Use: None Hx Substance Use: No Substance Use Type: Reports: None Hx Tobacco Use: No Smoking Status (MU): Never Smoked Tobacco Review of Systems Constitutional: Negative Negative: Fever, Chills, Fatigue Eyes: Negative Cardiovascular: Negative Respiratory: Negative Gastrointestinal: Negative Negative: no symptoms reported, see HPI Musculoskeletal: Negative Negative: Arthralgia, Myalgia Skin: Negative Neurological: Negative Positive: Anxious, Depressed All Other Systems Reviewed And Are Negative: Yes Physical Exam Triage Information Reviewed: Yes Vital Signs On Initial Exam: Initial Vitals Temp Pulse Resp BP Pulse Ox 97.5 F 79 20 206/177 96 10/15/17 12:50 10/15/17 12:50 10/15/17 12:50 10/15/17 12:50 10/15/17 12:50 Vital Signs Reviewed: Yes Appearance: Positive: Well-Appearing, No Pain Distress, Well-Nourished Skin: Positive: Warm, Skin Color Reflects Adequate Perfusion Head/Face: Positive: Normal Head/Face Inspection Eyes: Positive: EOMI, KARL, Conjunctiva Clear Neck: Positive: Supple, Nontender, No Lymphadenopathy Respiratory/Lung Sounds: Positive: Clear to Auscultation, Breath Sounds Present Cardiovascular: Positive: Normal, RRR, Pulses are Symmetrical in both Upper and Lower Extremities Musculoskeletal: Positive: Normal, Strength/ROM Intact Neurological: Positive: Speech Normal Psychiatric: Positive: Normal, Affect/Mood Appropriate - [place] Coma Scale Coma Scale Total: 15 Diagnostics - Vital Signs Vital Signs Temp Pulse Resp BP Pulse Ox 10/15/17 16:33 97.9 F 84 18 136/90 98 10/15/17 13:51 98.0 F 66 18 121/70 98 10/15/17 12:50 97.5 F 79 20 206/177 96 - Laboratory Lab Results: Lab Results 10/15/17 10/15/17 10/15/17 Range/Units 13:55 13:55 14:27 WBC 11.1 H (3.5-10.8) 10^3/ul RBC 4.68 (4.0-5.4) 10^6/ul Hgb 12.6 (12.0-16.0) g/dl Hct 39 (35-47) % MCV 84 (80-97) fL MCH 27 (27-31) pg MCHC 32 (31-36) g/dl RDW 15 (10.5-15) % Plt Count 242 (150-450) 10^3/ul MPV 9 (7.4-10.4) um3 Neut % (Auto) 72.0 (38-83) % Lymph % (Auto) 20.3 L (25-47) % Randolph % (Auto) 6.2 (1-9) % Eos % (Auto) 0.9 (0-6) % Baso % (Auto) 0.6 (0-2) % Absolute Neuts (auto) 8.0 H (1.5-7.7) 10^3/ul Absolute Lymphs (auto) 2.2 (1.0-4.8) 10^3/ul Absolute Monos (auto) 0.7 (0-0.8) 10^3/ul Absolute Eos (auto) 0.1 (0-0.6) 10^3/ul Absolute Basos (auto) 0.1 (0-0.2) 10^3/ul Absolute Nucleated RBC 0 10^3/ul Nucleated RBC % 0 Sodium 138 (133-145) mmol/L Potassium 4.0 (3.5-5.0) mmol/L Chloride 106 (101-111) mmol/L Carbon Dioxide 23 (22-32) mmol/L Anion Gap 9 (2-11) mmol/L BUN 16 (6-24) mg/dL Creatinine 0.77 (0.51-0.95) mg/dL Est GFR ( Amer) 99.7 (>60) Est GFR (Non-Af Amer) 77.5 (>60) BUN/Creatinine Ratio 20.8 H (8-20) Glucose 104 H (70-100) mg/dL Calcium 9.4 (8.6-10.3) mg/dL Total Bilirubin 0.50 (0.2-1.0) mg/dL AST 27 (13-39) U/L ALT 23 (7-52) U/L Alkaline Phosphatase 76 (34-104) U/L Total Protein 7.2 (6.4-8.9) g/dL Albumin 3.8 (3.2-5.2) g/dL Globulin 3.4 (2-4) g/dL Albumin/Globulin Ratio 1.1 (1-3) TSH 1.90 (0.34-5.60) mcIU/mL Urine Color Urine Appearance Urine pH (5-9) Ur Specific [place] (1.010-1.030) Urine Protein (Negative) Urine Ketones (Negative) Urine Blood (Negative) Urine Nitrate (Negative) Urine Bilirubin (Negative) Urine Urobilinogen (Negative) Ur Leukocyte Esterase (Negative) Urine Glucose (Negative) Urine Ascorbic Acid (Negative) Salicylates < 2.50 (<30) mg/dL Urine Opiates Screen None detected (None Detect) Acetaminophen < 15 mcg/mL Ur Barbiturates Screen None detected (None Detect) Ur Phencyclidine Scrn None detected (None Detect) Ur Amphetamines Screen None detected (None Detect) U Benzodiazepines Scrn None detected (None Detect) Urine Cocaine Screen None detected (None Detect) U Cannabinoids Screen None detected (None Detect) Serum Alcohol < 10 (<10) mg/dL 10/15/17 Range/Units 14:27 WBC (3.5-10.8) 10^3/ul RBC (4.0-5.4) 10^6/ul Hgb (12.0-16.0) g/dl Hct (35-47) % MCV (80-97) fL MCH (27-31) pg MCHC (31-36) g/dl RDW (10.5-15) % Plt Count (150-450) 10^3/ul MPV (7.4-10.4) um3 Neut % (Auto) (38-83) % Lymph % (Auto) (25-47) % Randolph % (Auto) (1-9) % Eos % (Auto) (0-6) % Baso % (Auto) (0-2) % Absolute Neuts (auto) (1.5-7.7) 10^3/ul Absolute Lymphs (auto) (1.0-4.8) 10^3/ul Absolute Monos (auto) (0-0.8) 10^3/ul Absolute Eos (auto) (0-0.6) 10^3/ul Absolute Basos (auto) (0-0.2) 10^3/ul Absolute Nucleated RBC 10^3/ul Nucleated RBC % Sodium (133-145) mmol/L Potassium (3.5-5.0) mmol/L Chloride (101-111) mmol/L Carbon Dioxide (22-32) mmol/L Anion Gap (2-11) mmol/L BUN (6-24) mg/dL Creatinine (0.51-0.95) mg/dL Est GFR ( Amer) (>60) Est GFR (Non-Af Amer) (>60) BUN/Creatinine Ratio (8-20) Glucose (70-100) mg/dL Calcium (8.6-10.3) mg/dL Total Bilirubin (0.2-1.0) mg/dL AST (13-39) U/L ALT (7-52) U/L Alkaline Phosphatase (34-104) U/L Total Protein (6.4-8.9) g/dL Albumin (3.2-5.2) g/dL Globulin (2-4) g/dL Albumin/Globulin Ratio (1-3) TSH (0.34-5.60) mcIU/mL Urine Color Yellow Urine Appearance Cloudy Urine pH 5.0 (5-9) Ur Specific [place] 1.025 (1.010-1.030) Urine Protein Negative (Negative) Urine Ketones Trace H (Negative) Urine Blood Negative (Negative) Urine Nitrate Negative (Negative) Urine Bilirubin Negative (Negative) Urine Urobilinogen Negative (Negative) Ur Leukocyte Esterase Negative (Negative) Urine Glucose Negative (Negative) Urine Ascorbic Acid * H (Negative) Salicylates (<30) mg/dL Urine Opiates Screen (None Detect) Acetaminophen mcg/mL Ur Barbiturates Screen (None Detect) Ur Phencyclidine Scrn (None Detect) Ur Amphetamines Screen (None Detect) U Benzodiazepines Scrn (None Detect) Urine Cocaine Screen (None Detect) U Cannabinoids Screen (None Detect) Serum Alcohol (<10) mg/dL Result Diagrams: 10/15/17 13:55 10/15/17 13:55 Lab Statement: Any lab studies that have been ordered have been reviewed, and results considered in the medical decision making process. Course/Dx - Course Course Of Treatment: Patient presents with increased thoughts of depression. - Differential Dx/Clinical Impression Provider Diagnosis: Schizophrenia, Stress Discharge - Discharge Plan Condition: Stable Disposition: HOME Patient Education Materials: Schizophrenia (ED) Referrals: Asher Interiano MD [Primary Care Provider] -
== END 2017-10-15 16:33 | disposition home or self-care (01) ==
LOC: ED 12:48
DX: F20.9 Schizophrenia, unspecified (principal); F43.9 Reaction to severe stress, unspecified; F32.9 Major depressive disorder, single episode, unspecified; F41.9 Anxiety disorder, unspecified
CPT/HCPCS: 36415; 80053; 80307; 80320; 80329; 81003; 84443; 85025; 99284; G0480

== ENCOUNTER 2017-10-22 12:42 | Inpatient (IN) | payer MEDICARE, MEDICAID ==
[2017-10-22 13:45] LABS: ABS Basophils 0.1 10^3/ul (0-0.2); ABS Eosinophils 0.2 10^3/ul (0-0.6); ABS Lymphocytes 1.8 10^3/ul (1.0-4.8); ABS Monocytes 0.5 10^3/ul (0-0.8); ABS Neutrophils 6.6 10^3/ul (1.5-7.7); ABS Nucleated RBC 0 10^3/ul; Hematocrit 39 % (35-47); Hemoglobin 12.8 g/dl (12.0-16.0); Lymphocyte % 20.1 % (25-47); Mean Corpuscular HGB Conc 33 g/dl (31-36); Mean Corpuscular Hemoglobin 28 pg (27-31); Mean Corpuscular Volume 84 fL (80-97); Mean Platelet Volume 9 um3 (7.4-10.4); Nucleated Red Blood Cells % 0; Platelet Count 227 10^3/ul (150-450); Red Blood Count 4.65 10^6/ul (4.0-5.4); Red Cell Distribution Width 15 % (10.5-15); White Blood Count 9.1 10^3/ul (3.5-10.8)
[2017-10-22 14:09] LABS: EGFR Non-African American 60.1 (>60)
--- NOTE | 2017-10-22 14:38 | ED ---
Psychiatric Complaint - HPI Summary HPI Summary: 57F presents for hearing voices for past couple days. She states the voices she has been hearing are getting worst. She states the voices tell her how to live her life. She states the voices do not tell her to hurt herself or anyone else. She states that she does not feel suicidal or homicidal. She denies any drug or ETOH use. - History Of Current Complaint Chief Complaint: [facility] Time Seen by Provider: 10/22/17 12:49 - Allergies/Home Medications Allergies/Adverse Reactions: Allergies Allergy/AdvReac Type Severity Reaction Status Date / Time Ampicillin Allergy Swelling Verified 07/25/17 17:04 Home Medications: Home Medications Oxybutynin Chloride [Oxybutynin Chloride ER] 10 mg PO DAILY 10/22/17 [History Confirmed 10/22/17] PARoxetine HCL TAB* [Paxil TAB*] 20 mg PO BEDTIME 10/22/17 [History Confirmed ] Paliperidone SUSTENNA* [Invega Sustenna*] 234 mg IM Q30D 10/22/17 [History Confirmed 10/22/17] SitaGLIPtin (NF) [Januvia (NF)] 25 mg PO DAILY 10/22/17 [History Confirmed 10/22] glipiZIDE TAB* [Glucotrol TAB*] 5 mg PO BID 10/22/17 [History Confirmed 10/22/17 ] sulfaSALAzine TAB* [Azulfidine TAB*] 500 mg PO QID 10/22/17 [History Confirmed 10/22/17] PMH/Surg Hx/FS Hx/Imm Hx Endocrine/Hematology History: Denies: Hx Anticoagulant Therapy Cardiovascular History: Denies: Hx Myocardial Infarction Respiratory History: Reports: Hx Sleep Apnea Musculoskeletal History: Reports: Hx Arthritis Sensory History: Reports: Hx Contacts or Glasses Denies: Hx Hearing Aid Opthamlomology History: Reports: Hx Contacts or Glasses Psychiatric History: Reports: Hx Depression, Other Psychiatric Issues/Disorders - Schizoaffective disorder Denies: Hx Eating Disorder, Hx of Violent Episodes Against Others - Cancer History Hx Chemotherapy: No Hx Radiation Therapy: No - Surgical History Surgery Procedure, Year, and Place: None Infectious Disease History: No Infectious Disease History: Denies: Traveled Outside the US in Last 30 Days - Family History Known Family History: Positive: Other - Depression Negative: Cardiac Disease, Diabetes - Social History Alcohol Use: None Hx Substance Use: No Substance Use Type: Reports: None Hx Tobacco Use: No Smoking Status (MU): Never Smoked Tobacco Review of Systems Negative: Fever Negative: Chest Pain Negative: Shortness Of Breath Positive: Other - hearing voices All Other Systems Reviewed And Are Negative: Yes Physical Exam Triage Information Reviewed: Yes Vital Signs On Initial Exam: Initial Vitals Temp Pulse Resp BP Pulse Ox 98.7 F 74 16 124/80 100 10/22/17 12:50 10/22/17 12:50 10/22/17 12:50 10/22/17 12:50 10/22/17 12:50 Vital Signs Reviewed: Yes Appearance: Positive: Well-Appearing Skin: Positive: Warm, Dry Head/Face: Positive: Normal Head/Face Inspection Eyes: Positive: Normal, EOMI, KARL, Conjunctiva Clear ENT: Positive: Normal ENT inspection, Pharynx normal, TMs normal Respiratory/Lung Sounds: Positive: Clear to Auscultation, Breath Sounds Present Cardiovascular: Positive: Normal, RRR Abdomen Description: Positive: Nontender, Soft Bowel Sounds: Positive: Present Musculoskeletal: Positive: Normal Neurological: Positive: Normal Psychiatric: Positive: Other - rapid sequence of thought Diagnostics - Vital Signs Vital Signs Temp Pulse Resp BP Pulse Ox 10/22/17 12:50 98.7 F 74 16 124/80 100 - Laboratory Lab Results: Lab Results 10/22/17 10/22/17 Range/Units 13:35 13:35 WBC 9.1 (3.5-10.8) 10^3/ul RBC 4.65 (4.0-5.4) 10^6/ul Hgb 12.8 (12.0-16.0) g/dl Hct 39 (35-47) % MCV 84 (80-97) fL MCH 28 (27-31) pg MCHC 33 (31-36) g/dl RDW 15 (10.5-15) % Plt Count 227 (150-450) 10^3/ul MPV 9 (7.4-10.4) um3 Neut % (Auto) 72.0 (38-83) % Lymph % (Auto) 20.1 L (25-47) % Lassen % (Auto) 5.0 (1-9) % Eos % (Auto) 2.0 (0-6) % Baso % (Auto) 0.9 (0-2) % Absolute Neuts (auto) 6.6 (1.5-7.7) 10^3/ul Absolute Lymphs (auto) 1.8 (1.0-4.8) 10^3/ul Absolute Monos (auto) 0.5 (0-0.8) 10^3/ul Absolute Eos (auto) 0.2 (0-0.6) 10^3/ul Absolute Basos (auto) 0.1 (0-0.2) 10^3/ul Absolute Nucleated RBC 0 10^3/ul Nucleated RBC % 0 Sodium 140 (133-145) mmol/L Potassium 3.7 (3.5-5.0) mmol/L Chloride 107 (101-111) mmol/L Carbon Dioxide 27 (22-32) mmol/L Anion Gap 6 (2-11) mmol/L BUN 16 (6-24) mg/dL Creatinine 0.96 H (0.51-0.95) mg/dL Est GFR ( Amer) 77.3 (>60) Est GFR (Non-Af Amer) 60.1 (>60) BUN/Creatinine Ratio 16.7 (8-20) Glucose 126 H (70-100) mg/dL Calcium 9.0 (8.6-10.3) mg/dL Total Bilirubin 0.40 (0.2-1.0) mg/dL AST 21 (13-39) U/L ALT 20 (7-52) U/L Alkaline Phosphatase 68 (34-104) U/L Total Protein 7.0 (6.4-8.9) g/dL Albumin 3.7 (3.2-5.2) g/dL Globulin 3.3 (2-4) g/dL Albumin/Globulin Ratio 1.1 (1-3) TSH Pending Salicylates < 2.50 (<30) mg/dL Acetaminophen < 15 mcg/mL Serum Alcohol < 10 (<10) mg/dL Result Diagrams: 10/22/17 13:35 10/22/17 13:35 Lab Statement: Any lab studies that have been ordered have been reviewed, and results considered in the medical decision making process. Course/Dx - Course Course Of Treatment: 57F presents for hearing voices for past couple days. She states the voices she has been hearing are getting worst. She states the voices tell her how to live her life. She states the voices do not tell her to hurt herself or anyone else. She states that she does not feel suicidal or homicidal. She denies any drug or ETOH use. on exam has lucid thoughts. easily distracted. patient medically clear for [facility]. mental health felt that patient should be admitted for schizophrenia. - Differential Dx/Clinical Impression Differential Diagnosis/HQI/PQRI: Positive: Acute Psychosis, Depression, Schizophrenia Provider Diagnosis: Schizophrenia Discharge - Discharge Plan Condition: Stable Disposition: ADMITTED TO [facility] Referrals: Asher Interiano MD [Primary Care Provider] -
[2017-10-22 15:08] LABS: Urine Appearance Cloudy; Urine Blood Negative (Negative); Urine Color Yellow; Urine Ketones Negative (Negative); Urine Protein Negative (Negative); Urine Specific Gravity 1.026 (1.010-1.030); Urine Urobilinogen Negative (Negative)
[2017-10-22] MEDS ORDERED: Al Hydrox/Mg Hydrox/Simet LIQ* 30 ML UDC PO PRN (15:42)
[2017-10-22] MEDS: sulfaSALAzine TAB* 500 MG PO SCH ×2 (20:15→21:43)
[2017-10-22] MEDS: PARoxetine HCL TAB* 20 MG PO SCH (21:43)
[2017-10-22] MEDS: glipiZIDE TAB* 5 MG PO SCH (21:43)
[2017-10-22] MEDS: risperiDONE TAB* 3 MG PO SCH (21:43)
[2017-10-23] MEDS: risperiDONE TAB* 3 MG PO SCH ×2 (02:21→20:54)
[2017-10-23] MEDS: glipiZIDE TAB* 5 MG PO SCH ×2 (11:03→17:10)
[2017-10-23] MEDS: CMCS SitaGLIPtin (NF) 25 MG TAB PO SCH (11:03)
[2017-10-23] MEDS: sulfaSALAzine TAB* 500 MG PO SCH ×4 (11:03→20:54)
[2017-10-23] MEDS: Vitamin THERAPEUTIC TAB PO SCH (11:03)
[2017-10-23] MEDS: Oxybutynin XL TAB* 5 MG PO SCH (11:03)
--- NOTE | 2017-10-23 11:25 | PN ---
[facility]: Group Therapy Note - Service Type Service Type: 99415 Group Psychotherapy - Cognitive Behavioral Group Therapy ( CBT):Patient was attentive and participatory in CBT programming this morning, and remained in good behavioral control. Patient expressed positive insights regarding relevant treatment interventions and goals.
[2017-10-23] MEDS: Acetaminophen TAB* 325 MG PO PRN (14:28)
[2017-10-23] MEDS ORDERED: Acetaminophen TAB* 325 MG ONE (14:28)
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
[2017-10-23] MEDS: PARoxetine HCL TAB* 20 MG PO SCH (20:54)
[2017-10-24] MEDS: glipiZIDE TAB* 5 MG PO SCH ×2 (08:18→17:14)
[2017-10-24] MEDS: CMCS SitaGLIPtin (NF) 25 MG TAB PO SCH (08:18)
[2017-10-24] MEDS: Oxybutynin XL TAB* 5 MG PO SCH (08:18)
[2017-10-24] MEDS: sulfaSALAzine TAB* 500 MG PO SCH ×5 (08:18→21:51)
[2017-10-24] MEDS: Vitamin THERAPEUTIC TAB PO SCH ×2 (08:21→08:30)
[2017-10-24] MEDS ORDERED: Vitamin THERAPEUTIC TAB ONE (08:29)
--- NOTE | 2017-10-24 16:49 | PN ---
Subjective - Subjective Date of Service: 10/24/17 Service Type: 26715 Hosp care 15 min low complexity Subjective: Patient reports that she continues to hear one voice but the voice is much subdued and tolerable. She is not as fearful as yesterday and not been incontinent anymore. The voice is of a former roommate who has been saying all negatives about her. Denies delusions, SI or HI. Objective - Appearance Appearance: Obese Dysmorphic Features: No Hygiene: Normal Grooming: Fairly Well Kept - Behavior Psychomotor Activities: Normal Exhibits Abnormal Movement: No - Attitude and Relatedness Attitude and Relatedness: Appropriate Eye Contact: Good - Speech Quality: Unpressured Latencies: Normal Quantity: Appropriate - Mood Patient's Decription of Mood: "Fine" - Affect Observed Affect: Good Affect Consistent with: Euthymia - Thought Process Patient's Thought Process: Coherent, Goal Directed Thought Content: No Passive Wish, No Suicidal Planning, No Homicidal Ideation, No Paranoid Ideation - Sensorium Experiencing Hallucinations: Yes Type of Hallucinations: Visual: No, Auditory: Yes, Command: No - Level of Consciousness Level of Consciousness: Alert Orientation: Yes Intact, Yes Orientated to Time, Yes Orientated to Place, Yes Orientated to Person - Impulse Control Impulse Control: Intact - Insight and Judgement Insight and Judgement: Good - Group Participation Particating in Group Activities: Yes - Medication Management Medication Management Adherence: Yes Assessment - Assessment Merits Inpatient Hospitalization: Consolidate Improvements, For Discharge Planning Plan - Plan Treatment Plan: Name: YAHIR ALEXANDRE Birthdate: 1960 [id number] Continued Medication Management: Continue Outpt Medication Medications: Current Medications Acetaminophen (Tylenol Tab*) 650 mg PO Q4H PRN PRN Reason: for pain; or Temp >101 F Last Admin: 10/23/17 14:28 Dose: 650 mg Al Hydrox/Mg Hydrox/Simethicone (Maalox Plus*) 30 ml PO Q4H PRN PRN Reason: INDIGESTION Glipizide (Glucotrol Tab*) 5 mg PO 0800,1700 [facility] Last Admin: 10/24/17 08:18 Dose: 5 mg Multivitamins (Theragran Tab*) 1 tab PO DAILY [facility] Last Admin: 10/24/17 08:30 Dose: 1 tab Oxybutynin Chloride (Ditropan Xl Tab*) 10 mg PO DAILY [facility] Last Admin: 10/24/17 08:18 Dose: 10 mg Paroxetine HCl (Paxil Tab*) 20 mg PO BEDTIME [facility] Last Admin: 10/23/17 20:54 Dose: 20 mg Risperidone (Risperdal*) 3 mg PO BEDTIME [facility] Last Admin: 10/23/17 20:54 Dose: 3 mg Sitagliptin Phosphate (Januvia (Nf)) 25 mg PO DAILY [facility] Last Admin: 10/24/17 08:18 Dose: 25 mg Sulfasalazine (Azulfidine Tab*) 500 mg PO QID [facility] Last Admin: 10/24/17 13:10 Dose: 500 mg - Discharge Plan Discharge Plan: Outpatient Follow Up Outpatient Program: Allison Meza [facility]
[2017-10-24] MEDS: risperiDONE TAB* 3 MG PO SCH ×2 (21:47→21:51)
[2017-10-24] MEDS: PARoxetine HCL TAB* 20 MG PO SCH ×2 (21:47→21:51)
[2017-10-25] MEDS: Acetaminophen TAB* 325 MG PO PRN (01:30)
[2017-10-25] MEDS ORDERED: Acetaminophen TAB* 325 MG ONE (01:30)
[2017-10-25] MEDS: risperiDONE TAB* 3 MG PO SCH ×2 (01:31→22:42)
[2017-10-25] MEDS: Vitamin THERAPEUTIC TAB PO SCH ×2 (08:28→09:14)
[2017-10-25] MEDS: glipiZIDE TAB* 5 MG PO SCH ×3 (08:28→17:29)
[2017-10-25] MEDS: CMCS SitaGLIPtin (NF) 25 MG TAB PO SCH ×2 (08:28→09:15)
[2017-10-25] MEDS: Oxybutynin XL TAB* 5 MG PO SCH ×2 (08:28→09:15)
[2017-10-25] MEDS: sulfaSALAzine TAB* 500 MG PO SCH ×5 (08:28→22:42)
[2017-10-25] MEDS: PARoxetine HCL TAB* 20 MG PO SCH (22:42)
[2017-10-26] MEDS: Vitamin THERAPEUTIC TAB PO SCH (09:47)
[2017-10-26] MEDS: glipiZIDE TAB* 5 MG PO SCH ×2 (09:48→16:51)
[2017-10-26] MEDS: Oxybutynin XL TAB* 5 MG PO SCH (09:48)
[2017-10-26] MEDS: CMCS SitaGLIPtin (NF) 25 MG TAB PO SCH (09:48)
[2017-10-26] MEDS: sulfaSALAzine TAB* 500 MG PO SCH ×4 (09:48→21:33)
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
[2017-10-26] MEDS: risperiDONE TAB* 3 MG PO SCH (21:33)
[2017-10-26] MEDS: PARoxetine HCL TAB* 20 MG PO SCH (21:35)
[2017-10-27] MEDS: glipiZIDE TAB* 5 MG PO SCH ×2 (08:25→17:18)
[2017-10-27] MEDS: Oxybutynin XL TAB* 5 MG PO SCH ×2 (08:26→08:34)
[2017-10-27] MEDS: sulfaSALAzine TAB* 500 MG PO SCH ×5 (08:26→21:00)
[2017-10-27] MEDS: CMCS SitaGLIPtin (NF) 25 MG TAB PO SCH (08:26)
[2017-10-27] MEDS: Vitamin THERAPEUTIC TAB PO SCH (08:27)
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
--- NOTE | 2017-10-27 13:35 | PN ---
MHU: Group Therapy Note - Service Type Service Type: 14046 Group Psychotherapy - Cognitive Behavioral Group Therapy ( CBT):Patient was attentive and participatory in CBT programming this morning, and remained in good behavioral control. Patient expressed positive insights regarding relevant treatment interventions and goals.
[2017-10-27] MEDS: risperiDONE TAB* 3 MG PO SCH (21:00)
[2017-10-27] MEDS: PARoxetine HCL TAB* 20 MG PO SCH (21:00)
[2017-10-28] MEDS: glipiZIDE TAB* 5 MG PO SCH ×2 (07:43→16:54)
[2017-10-28] MEDS: Vitamin THERAPEUTIC TAB PO SCH (07:43)
[2017-10-28] MEDS: Oxybutynin XL TAB* 5 MG PO SCH (09:11)
[2017-10-28] MEDS: CMCS SitaGLIPtin (NF) 25 MG TAB PO SCH (09:11)
[2017-10-28] MEDS: sulfaSALAzine TAB* 500 MG PO SCH ×4 (09:11→20:44)
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
[2017-10-28] MEDS: PARoxetine HCL TAB* 20 MG PO SCH (20:44)
[2017-10-28] MEDS: risperiDONE TAB* 3 MG PO SCH (20:44)
[2017-10-29] MEDS: glipiZIDE TAB* 5 MG PO SCH ×2 (08:09→16:47)
[2017-10-29] MEDS: Oxybutynin XL TAB* 5 MG PO SCH (08:09)
[2017-10-29] MEDS: CMCS SitaGLIPtin (NF) 25 MG TAB PO SCH (08:09)
[2017-10-29] MEDS: Vitamin THERAPEUTIC TAB PO SCH (08:09)
[2017-10-29] MEDS: sulfaSALAzine TAB* 500 MG PO SCH ×4 (08:10→21:41)
[2017-10-29] MEDS ORDERED: [UNRECOGNIZED DRUG - OTHER] IM ONE (11:29)
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
--- NOTE | 2017-10-29 16:25 | PN ---
MHU: Group Therapy Note - Service Type Service Type: [id number] Group Psychotherapy - Medication Education Group: Patient joined group late and left early.
[2017-10-29] MEDS ORDERED: risperiDONE TAB* 3 MG PO ONE (21:00)
[2017-10-29] MEDS: risperiDONE TAB* 3 MG PO SCH (21:41)
[2017-10-29] MEDS: PARoxetine HCL TAB* 20 MG PO SCH (21:42)
[2017-10-30] MEDS: glipiZIDE TAB* 5 MG PO SCH ×2 (07:58→16:46)
[2017-10-30] MEDS: Vitamin THERAPEUTIC TAB PO SCH (08:23)
[2017-10-30] MEDS: CMCS SitaGLIPtin (NF) 25 MG TAB PO SCH (08:23)
[2017-10-30] MEDS: sulfaSALAzine TAB* 500 MG PO SCH ×4 (08:24→20:40)
[2017-10-30] MEDS: Oxybutynin XL TAB* 5 MG PO SCH (08:24)
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
[2017-10-30] MEDS ORDERED: [UNRECOGNIZED DRUG - OTHER] IM ONE (12:00)
[2017-10-30] MEDS: PARoxetine HCL TAB* 20 MG PO SCH (20:42)
[2017-10-31] MEDS: Oxybutynin XL TAB* 5 MG PO SCH (08:40)
[2017-10-31] MEDS: CMCS SitaGLIPtin (NF) 25 MG TAB PO SCH (08:41)
[2017-10-31] MEDS: sulfaSALAzine TAB* 500 MG PO SCH ×4 (08:41→21:30)
[2017-10-31] MEDS: glipiZIDE TAB* 5 MG PO SCH ×2 (08:41→16:27)
[2017-10-31] MEDS: Vitamin THERAPEUTIC TAB PO SCH (08:41)
[2017-10-31] MEDS: PARoxetine HCL TAB* 20 MG PO SCH (21:30)
[2017-11-01] MEDS: Vitamin THERAPEUTIC TAB PO SCH (08:42)
[2017-11-01] MEDS: Oxybutynin XL TAB* 5 MG PO SCH (08:43)
[2017-11-01] MEDS: CMCS SitaGLIPtin (NF) 25 MG TAB PO SCH (08:43)
[2017-11-01] MEDS: sulfaSALAzine TAB* 500 MG PO SCH ×4 (08:43→20:16)
[2017-11-01] MEDS: glipiZIDE TAB* 5 MG PO SCH ×2 (08:47→16:53)
[2017-11-01] MEDS: Benztropine TAB* 1 MG PO SCH ×2 (15:57→20:15)
[2017-11-01] MEDS: risperiDONE TAB* 1 MG PO SCH ×2 (15:57→20:15)
[2017-11-01] MEDS: PARoxetine HCL TAB* 20 MG PO SCH (20:15)
[2017-11-02] MEDS: glipiZIDE TAB* 5 MG PO SCH ×2 (09:56→18:49)
[2017-11-02] MEDS: Oxybutynin XL TAB* 5 MG PO SCH (09:56)
[2017-11-02] MEDS: Vitamin THERAPEUTIC TAB PO SCH (09:56)
[2017-11-02] MEDS: sulfaSALAzine TAB* 500 MG PO SCH ×3 (09:56→18:49)
[2017-11-02] MEDS: CMCS SitaGLIPtin (NF) 25 MG TAB PO SCH (09:56)
[2017-11-02] MEDS: Benztropine TAB* 1 MG PO SCH (09:57)
[2017-11-02] MEDS: risperiDONE TAB* 1 MG PO SCH (10:03)
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
[2017-11-03] MEDS: risperiDONE TAB* 1 MG PO SCH ×3 (02:05→22:08)
[2017-11-03] MEDS: Benztropine TAB* 1 MG PO SCH ×3 (02:05→22:25)
[2017-11-03] MEDS: sulfaSALAzine TAB* 500 MG PO SCH ×5 (02:05→22:09)
[2017-11-03] MEDS: CMCS SitaGLIPtin (NF) 25 MG TAB PO SCH (08:58)
[2017-11-03] MEDS: PARoxetine HCL TAB* 20 MG PO SCH (08:58)
[2017-11-03] MEDS: Vitamin THERAPEUTIC TAB PO SCH (08:58)
[2017-11-03] MEDS: Oxybutynin XL TAB* 5 MG PO SCH (08:59)
[2017-11-03] MEDS: glipiZIDE TAB* 5 MG PO SCH ×2 (08:59→17:19)
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
[2017-11-04] MEDS: Benztropine TAB* 1 MG PO SCH ×2 (08:43→20:59)
[2017-11-04] MEDS: glipiZIDE TAB* 5 MG PO SCH ×2 (08:43→18:17)
[2017-11-04] MEDS: CMCS SitaGLIPtin (NF) 25 MG TAB PO SCH (08:43)
[2017-11-04] MEDS: PARoxetine HCL TAB* 20 MG PO SCH (08:44)
[2017-11-04] MEDS: Oxybutynin XL TAB* 5 MG PO SCH (08:44)
[2017-11-04] MEDS: risperiDONE TAB* 1 MG PO SCH ×2 (08:44→20:59)
[2017-11-04] MEDS: sulfaSALAzine TAB* 500 MG PO SCH ×4 (08:45→20:59)
[2017-11-04] MEDS: Vitamin THERAPEUTIC TAB PO SCH (08:46)
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
--- NOTE | 2017-11-04 11:14 | PN ---
MHU: Group Therapy Note - Service Type Service Type: [id number] Group Psychotherapy - Cognitive Behavioral Group Therapy ( CBT):Patient was attentive and participatory in CBT programming this morning, and remained in good behavioral control. Patient expressed positive insights regarding relevant treatment interventions and goals.
[2017-11-05] MEDS: glipiZIDE TAB* 5 MG PO SCH ×2 (10:05→16:56)
[2017-11-05] MEDS: risperiDONE TAB* 1 MG PO SCH ×3 (10:05→20:45)
[2017-11-05] MEDS: Benztropine TAB* 1 MG PO SCH ×2 (10:06→20:45)
[2017-11-05] MEDS: Oxybutynin XL TAB* 5 MG PO SCH ×2 (10:07→13:14)
[2017-11-05] MEDS: Vitamin THERAPEUTIC TAB PO SCH (10:07)
[2017-11-05] MEDS: PARoxetine HCL TAB* 20 MG PO SCH ×2 (10:07→10:08)
[2017-11-05] MEDS: sulfaSALAzine TAB* 500 MG PO SCH ×4 (10:07→20:45)
[2017-11-05] MEDS: CMCS SitaGLIPtin (NF) 25 MG TAB PO SCH ×2 (10:07→13:14)
[2017-11-06] MEDS: Oxybutynin XL TAB* 5 MG PO SCH (08:17)
[2017-11-06] MEDS: glipiZIDE TAB* 5 MG PO SCH ×2 (08:17→17:48)
[2017-11-06] MEDS: risperiDONE TAB* 1 MG PO SCH ×2 (08:18→20:11)
[2017-11-06] MEDS: CMCS SitaGLIPtin (NF) 25 MG TAB PO SCH (08:18)
[2017-11-06] MEDS: sulfaSALAzine TAB* 500 MG PO SCH ×4 (08:18→20:11)
[2017-11-06] MEDS: PARoxetine HCL TAB* 20 MG PO SCH (08:18)
[2017-11-06] MEDS: Vitamin THERAPEUTIC TAB PO SCH (08:19)
[2017-11-06] MEDS: Benztropine TAB* 1 MG PO SCH ×2 (08:19→20:11)
--- NOTE | 2017-11-06 08:45 | PN ---
MHU: Group Therapy Note - Service Type Service Type: [id number] Group Psychotherapy - Patient present for beginning of group and left shortly after onset of discussion.
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
[2017-11-07] MEDS: glipiZIDE TAB* 5 MG PO SCH ×2 (07:58→16:45)
[2017-11-07] MEDS: PARoxetine HCL TAB* 20 MG PO SCH (09:32)
[2017-11-07] MEDS: Vitamin THERAPEUTIC TAB PO SCH (09:32)
[2017-11-07] MEDS: risperiDONE TAB* 1 MG PO SCH ×2 (09:33→20:16)
[2017-11-07] MEDS: Benztropine TAB* 1 MG PO SCH ×2 (09:34→20:16)
[2017-11-07] MEDS: Oxybutynin XL TAB* 5 MG PO SCH (09:34)
[2017-11-07] MEDS: sulfaSALAzine TAB* 500 MG PO SCH ×4 (09:34→20:16)
[2017-11-07] MEDS: CMCS SitaGLIPtin (NF) 25 MG TAB PO SCH (09:35)
[2017-11-08] MEDS: Oxybutynin XL TAB* 5 MG PO SCH (07:31)
[2017-11-08] MEDS: Benztropine TAB* 1 MG PO SCH ×2 (07:31→21:03)
[2017-11-08] MEDS: CMCS SitaGLIPtin (NF) 25 MG TAB PO SCH (07:31)
[2017-11-08] MEDS: Vitamin THERAPEUTIC TAB PO SCH (07:31)
[2017-11-08] MEDS: glipiZIDE TAB* 5 MG PO SCH ×2 (07:31→16:45)
[2017-11-08] MEDS: sulfaSALAzine TAB* 500 MG PO SCH ×4 (07:31→21:04)
[2017-11-08] MEDS: risperiDONE TAB* 1 MG PO SCH ×2 (07:31→21:04)
[2017-11-08] MEDS: PARoxetine HCL TAB* 20 MG PO SCH (07:31)
[2017-11-09] MEDS: glipiZIDE TAB* 5 MG PO SCH ×2 (08:41→17:24)
[2017-11-09] MEDS: PARoxetine HCL TAB* 20 MG PO SCH (08:41)
[2017-11-09] MEDS: Oxybutynin XL TAB* 5 MG PO SCH (08:41)
[2017-11-09] MEDS: risperiDONE TAB* 1 MG PO SCH ×2 (08:42→20:43)
[2017-11-09] MEDS: CMCS SitaGLIPtin (NF) 25 MG TAB PO SCH (08:42)
[2017-11-09] MEDS: sulfaSALAzine TAB* 500 MG PO SCH ×4 (08:42→20:42)
[2017-11-09] MEDS: Vitamin THERAPEUTIC TAB PO SCH (08:43)
[2017-11-09] MEDS: Benztropine TAB* 1 MG PO SCH ×2 (08:44→20:43)
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
[2017-11-10] MEDS: glipiZIDE TAB* 5 MG PO SCH ×2 (07:36→17:34)
[2017-11-10] MEDS: Oxybutynin XL TAB* 5 MG PO SCH (08:51)
[2017-11-10] MEDS: Vitamin THERAPEUTIC TAB PO SCH (08:52)
[2017-11-10] MEDS: sulfaSALAzine TAB* 500 MG PO SCH ×4 (08:52→21:07)
[2017-11-10] MEDS: risperiDONE TAB* 1 MG PO SCH ×2 (08:52→21:07)
[2017-11-10] MEDS: PARoxetine HCL TAB* 20 MG PO SCH (08:52)
[2017-11-10] MEDS: CMCS SitaGLIPtin (NF) 25 MG TAB PO SCH (08:52)
[2017-11-10] MEDS: Benztropine TAB* 1 MG PO SCH ×2 (08:52→21:07)
--- NOTE | 2017-11-10 11:23 | PN ---
MHU: Group Therapy Note - Service Type Service Type: [id number] Group Psychotherapy - Cognitive Behavioral Group Therapy ( CBT):Patient was attentive and participatory in CBT programming this morning, and remained in good behavioral control. Patient expressed positive insights regarding relevant treatment interventions and goals.
[2017-11-11] MEDS: glipiZIDE TAB* 5 MG PO SCH (07:58)
[2017-11-11 08:12] VITALS: BP 122/74
[2017-11-11] MEDS: PARoxetine HCL TAB* 20 MG PO SCH (09:09)
[2017-11-11] MEDS: Vitamin THERAPEUTIC TAB PO SCH (09:09)
[2017-11-11] MEDS: CMCS SitaGLIPtin (NF) 25 MG TAB PO SCH (09:10)
[2017-11-11] MEDS: risperiDONE TAB* 1 MG PO SCH (09:10)
[2017-11-11] MEDS: sulfaSALAzine TAB* 500 MG PO SCH (09:10)
[2017-11-11] MEDS: Benztropine TAB* 1 MG PO SCH (09:10)
[2017-11-11] MEDS: Oxybutynin XL TAB* 5 MG PO SCH (09:10)
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
== END 2017-11-11 11:40 | DRG 885 ==
LOC: ED 12:42 → BSU 19:04
PROVIDERS: ADMIT Psychiatry & Neurology Psychiatry; ATTEND Psychiatry & Neurology Psychiatry
DX: F20.9 Schizophrenia, unspecified (principal); E11.9 Type 2 diabetes mellitus without complications; E66.9 Obesity, unspecified; R32 Unspecified urinary incontinence; K58.9 Irritable bowel syndrome, unspecified; G47.30 Sleep apnea, unspecified; Z68.38 Body mass index [BMI] 38.0-38.9, adult; Z79.899 Other long term (current) drug therapy; Z88.1 Allergy status to other antibiotic agents; Z81.1 Family history of alcohol abuse and dependence
CPT/HCPCS: 36415; 80053; 80061; 80307; 80320; 80329; 81003; 83036; 84443; 85025; 90853; 99222; 99231; 99232; 99238; A9270-GY; G0480; J2794

== ENCOUNTER 2018-05-02 19:58 | Emergency (ER) | payer MEDICARE ==
--- NOTE | 2018-05-02 20:43 | ED ---
Psychiatric Complaint - HPI Summary HPI Summary: Pt is a 58 y/o F presents with mental health problems. Pt notes that a friend is trying to make her live more conservatively and she feels sad because she does not want to change her ways. No one is coming to visit her so she is very sad. She has not had any Homicidal ideations. PMHx: DM. - History Of Current Complaint Chief Complaint: EDMentalHealth Time Seen by Provider: 05/02/18 20:26 Hx Obtained From: Patient Onset/Duration: Gradual Onset, Still Present Aggravating Factor(s): Recent Stress Related History: Positive For: Prior Psychiatric Issues Has Homicidal: Denies: Thoughts - Allergies/Home Medications Allergies/Adverse Reactions: Allergies Allergy/AdvReac Type Severity Reaction Status Date / Time ampicillin Allergy Swelling Verified 05/02/18 20:11 Home Medications: Home Medications Paliperidone Palmitate [Invega Sustenna] 50 mg IM SEE INSTRUCTIONS 05/02/18 [ History Confirmed 05/03/18] risperiDONE TAB* [Risperdal*] 1 mg PO BEDTIME 05/03/18 [History Confirmed ] PMH/Surg Hx/FS Hx/Imm Hx Previously Healthy: No Endocrine/Hematology History: Denies: Hx Anticoagulant Therapy Cardiovascular History: Denies: Hx Myocardial Infarction Respiratory History: Reports: Hx Sleep Apnea Musculoskeletal History: Reports: Hx Arthritis Sensory History: Reports: Hx Contacts or Glasses Denies: Hx Hearing Aid Opthamlomology History: Reports: Hx Contacts or Glasses Psychiatric History: Reports: Hx Depression, Other Psychiatric Issues/Disorders - Schizoaffective disorder Denies: Hx Eating Disorder, Hx of Violent Episodes Against Others - Cancer History Hx Chemotherapy: No Hx Radiation Therapy: No - Surgical History Surgery Procedure, Year, and Place: None Infectious Disease History: No Infectious Disease History: Denies: Traveled Outside the US in Last 30 Days - Family History Known Family History: Positive: Other - Depression Negative: Cardiac Disease, Diabetes - Social History Occupation: Employed Part-time Lives: Alone Alcohol Use: None Hx Substance Use: No Substance Use Type: Reports: None Hx Tobacco Use: No Smoking Status (MU): Never Smoked Tobacco Amount Used/How Often: pt has used no tobacco products in last 30days Review of Systems Negative: Fever Positive: Depressed All Other Systems Reviewed And Are Negative: Yes Physical Exam - Summary Physical Exam Summary: Appearance: Well-appearing, Well-nourished, lying in bed comfortably Skin: Warm, dry, no obvious rash Eyes: sclera anicteric, no conjunctival pallor ENT: mucous membranes moist, pharynx appears normal Neck: Supple, nontender Respiratory: Clear to auscultation, no signs of respiratory distress Cardiovascular: Normal S1, S2. No murmurs. Normal distal pulses in tibial and radial bilaterally. Abdomen: Soft, nontender, normal active bowel sounds present Musculoskeletal: Normal, Strength/ROM Intact Neurological: A&Ox3, awake and alert, mentation is normal, speech is fluent and appropriate Psychiatric: Speech is fluent, thought patterns very tangiential. Triage Information Reviewed: Yes Vital Signs On Initial Exam: Initial Vitals Temp Pulse Resp BP Pulse Ox 97.6 F 65 12 119/81 97 05/02/18 20:00 05/02/18 20:00 05/02/18 20:00 05/02/18 20:00 05/02/18 20:00 Vital Signs Reviewed: Yes Diagnostics - Vital Signs Vital Signs Temp Pulse Resp BP Pulse Ox 05/02/18 20:00 97.6 F 65 12 119/81 97 - Laboratory Lab Results: Lab Results 05/02/18 Range/Units 20:06 POC Glucose (mg/dL) 130 H (70-100) mg/dL Result Diagrams: 05/02/18 20:36 05/02/18 20:36 Lab Statement: Any lab studies that have been ordered have been reviewed, and results considered in the medical decision making process. Course/Dx - Course Course Of Treatment: 58 y/o woman with a h/o depression, presents now with worsening sadness associated with very disjointed thought patterns. History and exam not suggestive of intervening medical illness, screening labs unremarkable. Pt is medically clear for psychiatric evaluation. - Differential Dx/Clinical Impression Differential Diagnosis/HQI/PQRI: Positive: Bipolar Disorder Provider Diagnosis: Bipolar 1 disorder Discharge - Sign-Out/Discharge Documenting (check all that apply): Patient Departure - Discharge Plan Condition: Good Disposition: HOME Referrals: Asher Interiano MD [Primary Care Provider] - Additional Instructions: Per completion of a mental health evaluation, you are cleared for release and do not require inpatient psychiatric hospitalization at this time. Please go to nearest emergency room or call 911 if safety concerns arise or condition worsens. Important Phone Numbers: [facility] ph:[phone] Su[facility] Prevention [facility] Crisis Services ph:[phone] National Suicide Prevention Lifeline ph:[phone] (6340) [facility] ph:[phone] Alcoholics Anonymous ph: [facility] ph:[phone] [facility] Police ph:[phone] - Billing Disposition and Condition Condition: GOOD Disposition: Home
[2018-05-02 20:44] LABS: ABS Basophils 0.1 10^3/ul (0-0.2); ABS Eosinophils 0.2 10^3/ul (0-0.6); ABS Lymphocytes 2.7 10^3/ul (1.0-4.8); ABS Monocytes 0.6 10^3/ul (0-0.8); ABS Neutrophils 5.4 10^3/ul (1.5-7.7); ABS Nucleated RBC 0 10^3/ul; Eosinophil % 2.1 % (0-6); Hematocrit 39 % (35-47); Lymphocyte % 30.2 % (25-47); Mean Corpuscular HGB Conc 34 g/dl (31-36); Mean Corpuscular Hemoglobin 29 pg (27-31); Mean Corpuscular Volume 86 fL (80-97); Mean Platelet Volume 8.3 um3 (7.4-10.4); Nucleated Red Blood Cells % 0.1; Platelet Count 226 10^3/ul (150-450); Red Blood Count 4.55 10^6/ul (4.00-5.40); Red Cell Distribution Width 14 % (10.5-15)
[2018-05-02 21:01] LABS: EGFR Non-African American 67.1 (>60)
[2018-05-03 01:04] VITALS: BP 129/84
== END 2018-05-03 01:30 | disposition home or self-care (01) ==
LOC: ED 19:58
DX: F25.0 Schizoaffective disorder, bipolar type (principal); G47.30 Sleep apnea, unspecified; M19.90 Unspecified osteoarthritis, unspecified site; Z88.0 Allergy status to penicillin; Z81.8 Family history of other mental and behavioral disorders
CPT/HCPCS: 36415; 80053; 80307; 80320; 84443; 85025; 99285; G0480

== ENCOUNTER 2018-11-20 22:05 | Inpatient (IN) | payer MEDICARE ==
[2018-11-20] MEDS ORDERED: Nicotine Inhaler* 10 MG AMP INH PRN (22:19)
[2018-11-20 22:55] LABS: ABS Basophils 0.1 10^3/ul (0-0.2); ABS Eosinophils 0.1 10^3/ul (0-0.6); ABS Lymphocytes 1.7 10^3/ul (1.0-4.8); ABS Monocytes 0.6 10^3/ul (0-0.8); ABS Nucleated RBC 0 10^3/ul; Hematocrit 42 % (35-47); Hemoglobin 13.6 g/dl (12.0-16.0); Lymphocyte % 16.1 %; Mean Corpuscular HGB Conc 32 g/dl (31-36); Mean Corpuscular Hemoglobin 28 pg (27-31); Mean Corpuscular Volume 86 fL (80-97); Mean Platelet Volume 9.2 fL (7.4-10.4); Nucleated Red Blood Cells % 0.1; Platelet Count 212 10^3/ul (150-450); Red Blood Count 4.89 10^6/ul (4.00-5.40); Red Cell Distribution Width 14 % (10.5-15); White Blood Count 10.4 10^3/ul (3.5-10.8)
[2018-11-20 23:05] LABS: ALT 14 U/L (7-52); AST 15 U/L (13-39); Albumin/Globulin Ratio 1.3 (1-3); Alkaline Phosphatase 91 U/L (34-104); Anion Gap 6 mmol/L (2-11); BUN/Creatinine Ratio 15.9 (8-20); Blood Urea Nitrogen 13 mg/dL (6-24); CO2 Carbon Dioxide 28 mmol/L (22-32); Calcium 9.8 mg/dL (8.6-10.3); Chloride 105 mmol/L (101-111); EGFR African American 86.9 (>60); EGFR Non-African American 71.9 (>60); Globulin 3.2 g/dL (2-4); Glucose 115 mg/dL (70-100); Potassium 4.1 mmol/L (3.5-5.0); Sodium 139 mmol/L (135-145); Total Protein 7.2 g/dL (6.4-8.9)
[2018-11-20 23:11] LABS: Acetaminophen < 15 mcg/mL; Alcohol < 10 mg/dL (<10); Salicylate < 2.50 mg/dL (<30)
[2018-11-20 23:25] LABS: TSH (Thyroid Stimulating Horm) 2.02 mcIU/mL (0.34-5.60)
[2018-11-21 00:44] LABS: Urine Appearance Clear; Urine Bacteria 1+ (Absent); Urine Bilirubin Negative (Negative); Urine Blood Negative (Negative); Urine Color Yellow; Urine Glucose Negative (Negative); Urine Ketones Trace (Negative); Urine Nitrite Positive (Negative); Urine Protein Negative (Negative); Urine Red Blood Cell Absent (Absent); Urine Specific Gravity 1.017 (1.010-1.030); Urine Squamous Epithelial Cell Present (Absent); Urine Urobilinogen Negative (Negative); Urine White Blood Cell 1+(6-10/hpf) (Absent)
[2018-11-21 00:50] LABS: Barbiturates Urine Screen None Detected (None Detect); Benzodiazepine Urine Screen None Detected (None Detect); Urine Cannabinoids Screen None Detected (None Detect)
[2018-11-21] MEDS ORDERED: Sulfamethox/Trimethoprim DS 800/160* TAB PO ONE (00:57)
--- NOTE | 2018-11-21 00:57 | ED ---
Medical Screening - HPI Summary HPI Summary: Patient complains of having severaltimes a day, hearing voices starting today.. Patient has history of schizophrenia, states "millie" is trying to take over her. Patient states she has also missed 2 days of Risperdal, and feels anxious. Denies SI, HI. Denies fever, HOLMAN, cough, sore throat, CP, SOB, N/V/D, abdomen pain, change in urine, change in BM. Medical history is schizophrenia, psychosis. Denies EtOH or recreational drug use today. - History of Current Complaint Chief Complaint: EDPsychosocial Stated Complaint: 941 Time Seen by Provider: 11/20/18 22:18 Onset/Duration: Started Hours Ago Severity: moderate PMH/Surg Hx/FS Hx/Imm Hx Endocrine/Hematology History: Denies: Hx Anticoagulant Therapy Cardiovascular History: Denies: Hx Myocardial Infarction Respiratory History: Reports: Hx Sleep Apnea History: Denies: Hx Dialysis Musculoskeletal History: Reports: Hx Arthritis Sensory History: Reports: Hx Contacts or Glasses Denies: Hx Hearing Aid Opthamlomology History: Reports: Hx Contacts or Glasses Neurological History: Denies: Hx Dementia Psychiatric History: Reports: Hx Depression, Other Psychiatric Issues/Disorders - Schizoaffective disorder Denies: Hx Eating Disorder, Hx of Violent Episodes Against Others - Cancer History Hx Chemotherapy: No Hx Radiation Therapy: No - Surgical History Surgery Procedure, Year, and Place: None - Immunization History Date of Tetanus Vaccine: UTD Date of Influenza Vaccine: UTD Infectious Disease History: No Infectious Disease History: Denies: Traveled Outside the US in Last 30 Days - Family History Known Family History: Positive: Other - Depression Negative: Cardiac Disease, Diabetes - Social History Alcohol Use: Weekly Alcohol Amount: states "once every other day" Hx Substance Use: No Substance Use Type: Reports: None Hx Tobacco Use: No Smoking Status (MU): Never Smoked Tobacco Amount Used/How Often: pt has used no tobacco products in last 30days Review of Systems Constitutional: Negative Eyes: Negative ENT: Negative Cardiovascular: Negative Respiratory: Negative Gastrointestinal: Negative Genitourinary: Negative Musculoskeletal: Negative Skin: Negative Neurological: Negative Positive: Anxious All Other Systems Reviewed And Are Negative: Yes Physical Exam Triage Information Reviewed: Yes Vital Signs On Initial Exam: Initial Vitals Temp Pulse Resp BP Pulse Ox 97.6 F 77 18 182/131 94 11/20/18 22:07 11/20/18 22:07 11/20/18 22:07 11/20/18 22:07 11/20/18 22:07 Vital Signs Reviewed: Yes Appearance: Positive: Well-Appearing Skin: Positive: Warm Head/Face: Positive: Normal Head/Face Inspection Eyes: Positive: Normal Neck: Positive: Supple Respiratory/Lung Sounds: Positive: Clear to Auscultation Cardiovascular: Positive: Normal Abdomen Description: Positive: Nontender Musculoskeletal: Positive: Normal Neurological: Positive: Normal Psychiatric: Positive: Normal AVPU Assessment: Alert - [place] Coma Scale Best Eye Response: 4 - Spontaneous Best Motor Response: 6 - Obeys Commands Best Verbal Response: 5 - Oriented Coma Scale Total: 15 Diagnostics - Vital Signs Vital Signs Temp Pulse Resp BP Pulse Ox 11/20/18 22:07 97.6 F 77 18 182/131 94 - Laboratory Lab Results: Lab Results 11/20/18 11/20/18 11/21/18 Range/Units 22:43 22:43 00:20 WBC 10.4 (3.5-10.8) 10^3/ul RBC 4.89 (4.00-5.40) 10^6/ul Hgb 13.6 (12.0-16.0) g/dl Hct 42 (35-47) % MCV 86 (80-97) fL MCH 28 (27-31) pg MCHC 32 (31-36) g/dl RDW 14 (10.5-15) % Plt Count 212 (150-450) 10^3/ul MPV 9.2 (7.4-10.4) fL Neut % (Auto) 77.0 % Lymph % (Auto) 16.1 % [place] % (Auto) 5.4 % Eos % (Auto) 1.0 % Baso % (Auto) 0.5 % Absolute Neuts (auto) 8.0 H (1.5-7.7) 10^3/ul Absolute Lymphs (auto) 1.7 (1.0-4.8) 10^3/ul Absolute Monos (auto) 0.6 (0-0.8) 10^3/ul Absolute Eos (auto) 0.1 (0-0.6) 10^3/ul Absolute Basos (auto) 0.1 (0-0.2) 10^3/ul Absolute Nucleated RBC 0 10^3/ul Nucleated RBC % 0.1 Sodium 139 (135-145) mmol/L Potassium 4.1 (3.5-5.0) mmol/L Chloride 105 (101-111) mmol/L Carbon Dioxide 28 (22-32) mmol/L Anion Gap 6 (2-11) mmol/L BUN 13 (6-24) mg/dL Creatinine 0.82 (0.51-0.95) mg/dL Est GFR ( Amer) 86.9 (>60) Est GFR (Non-Af Amer) 71.9 (>60) BUN/Creatinine Ratio 15.9 (8-20) Glucose 115 H (70-100) mg/dL Calcium 9.8 (8.6-10.3) mg/dL Total Bilirubin 0.40 (0.2-1.0) mg/dL AST 15 (13-39) U/L ALT 14 (7-52) U/L Alkaline Phosphatase 91 (34-104) U/L Total Protein 7.2 (6.4-8.9) g/dL Albumin 4.0 (3.2-5.2) g/dL Globulin 3.2 (2-4) g/dL Albumin/Globulin Ratio 1.3 (1-3) TSH 2.02 (0.34-5.60) mcIU/mL Urine Color Yellow Urine Appearance Clear Urine pH 6.0 (5-9) Ur Specific [place] 1.017 (1.010-1.030) Urine Protein Negative (Negative) Urine Ketones Trace A (Negative) Urine Blood Negative (Negative) Urine Nitrate Positive A (Negative) Urine Bilirubin Negative (Negative) Urine Urobilinogen Negative (Negative) Ur Leukocyte Esterase Negative (Negative) Urine WBC (Auto) 1+(6-10/hpf) A (Absent) Urine RBC (Auto) Absent (Absent) Ur Squamous Epith Cells Present A (Absent) Urine Bacteria 1+ A (Absent) Urine Glucose Negative (Negative) Salicylates < 2.50 (<30) mg/dL Urine Opiates Screen (None Detect) Acetaminophen < 15 mcg/mL Ur Barbiturates Screen (None Detect) Ur Phencyclidine Scrn (None Detect) Ur Amphetamines Screen (None Detect) U Benzodiazepines Scrn (None Detect) Urine Cocaine Screen (None Detect) U Cannabinoids Screen (None Detect) Serum Alcohol < 10 (<10) mg/dL 11/21/18 Range/Units 00:20 WBC (3.5-10.8) 10^3/ul RBC (4.00-5.40) 10^6/ul Hgb (12.0-16.0) g/dl Hct (35-47) % MCV (80-97) fL MCH (27-31) pg MCHC (31-36) g/dl RDW (10.5-15) % Plt Count (150-450) 10^3/ul MPV (7.4-10.4) fL Neut % (Auto) % Lymph % (Auto) % [place] % (Auto) % Eos % (Auto) % Baso % (Auto) % Absolute Neuts (auto) (1.5-7.7) 10^3/ul Absolute Lymphs (auto) (1.0-4.8) 10^3/ul Absolute Monos (auto) (0-0.8) 10^3/ul Absolute Eos (auto) (0-0.6) 10^3/ul Absolute Basos (auto) (0-0.2) 10^3/ul Absolute Nucleated RBC 10^3/ul Nucleated RBC % Sodium (135-145) mmol/L Potassium (3.5-5.0) mmol/L Chloride (101-111) mmol/L Carbon Dioxide (22-32) mmol/L Anion Gap (2-11) mmol/L BUN (6-24) mg/dL Creatinine (0.51-0.95) mg/dL Est GFR ( Amer) (>60) Est GFR (Non-Af Amer) (>60) BUN/Creatinine Ratio (8-20) Glucose (70-100) mg/dL Calcium (8.6-10.3) mg/dL Total Bilirubin (0.2-1.0) mg/dL AST (13-39) U/L ALT (7-52) U/L Alkaline Phosphatase (34-104) U/L Total Protein (6.4-8.9) g/dL Albumin (3.2-5.2) g/dL Globulin (2-4) g/dL Albumin/Globulin Ratio (1-3) TSH (0.34-5.60) mcIU/mL Urine Color Urine Appearance Urine pH (5-9) Ur Specific [place] (1.010-1.030) Urine Protein (Negative) Urine Ketones (Negative) Urine Blood (Negative) Urine Nitrate (Negative) Urine Bilirubin (Negative) Urine Urobilinogen (Negative) Ur Leukocyte Esterase (Negative) Urine WBC (Auto) (Absent) Urine RBC (Auto) (Absent) Ur Squamous Epith Cells (Absent) Urine Bacteria (Absent) Urine Glucose (Negative) Salicylates (<30) mg/dL Urine Opiates Screen None detected (None Detect) Acetaminophen mcg/mL Ur Barbiturates Screen None detected (None Detect) Ur Phencyclidine Scrn None detected (None Detect) Ur Amphetamines Screen None detected (None Detect) U Benzodiazepines Scrn None detected (None Detect) Urine Cocaine Screen None detected (None Detect) U Cannabinoids Screen None detected (None Detect) Serum Alcohol (<10) mg/dL Result Diagrams: 11/20/18 22:43 11/20/18 22:43 Lab Statement: Any lab studies that have been ordered have been reviewed, and results considered in the medical decision making process. Course/Dx - Course Course Of Treatment: Patient complains of having severaltimes a day, hearing voices starting today.. Patient has history of schizophrenia, states "millie" is trying to take over her. Patient states she has also missed 2 days of Risperdal , and feels anxious. Denies SI, HI. Denies fever, HOLMAN, cough, sore throat, CP, SOB, N/V/D, abdomen pain, change in urine, change in BM. Medical history is schizophrenia, psychosis. Denies EtOH or recreational drug use today. Physical exam unremarkable. Patient alert and oriented. Vital signs within normal limits. Labs unremarkable. UA positive for UTI. Cultures pending. Mental recommends admission. - Diagnoses Provider Diagnoses: UTI (urinary tract infection), Schizophrenia Discharge - Sign-Out/Discharge Documenting (check all that apply): Patient Departure - Discharge Plan Condition: Fair [facility] [place] Disposition and Condition Condition: FAIR [place] [facility] [place]
[2018-11-21] MEDS ORDERED: clonazePAM TAB(*) 1 MG PO ONE (01:57)
[2018-11-21] MEDS ORDERED: Acetaminophen TAB* 325 MG PO PRN (03:13)
[2018-11-21] MEDS ORDERED: clonazePAM TAB(*) 1 MG PO PRN (03:13)
[2018-11-21] MEDS ORDERED: Al Hydrox/Mg Hydrox/Simet LIQ* 30 ML UDC PO PRN (03:13)
[2018-11-21] MEDS ORDERED: QUEtiapine TAB* 25 MG PO PRN (03:16)
[2018-11-21] MEDS ORDERED: QUEtiapine TAB* 25 MG ONE (04:16)
[2018-11-21] MEDS: Vitamin THERAPEUTIC TAB PO SCH (09:49)
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
[2018-11-21] MEDS: risperiDONE TAB* 1 MG PO SCH (20:44)
[2018-11-21] MEDS: Benztropine TAB* 1 MG PO SCH (20:44)
[2018-11-21] MEDS ORDERED: risperiDONE TAB* 1 MG PO SCH (21:00)
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
[2018-11-22] MEDS: risperiDONE TAB* 1 MG PO SCH ×2 (09:07→20:51)
[2018-11-22] MEDS: Vitamin THERAPEUTIC TAB PO SCH (09:07)
[2018-11-22] MEDS: Benztropine TAB* 1 MG PO SCH ×2 (09:07→20:51)
--- NOTE | 2018-11-22 13:10 | PN ---
Subjective - Subjective Date of Service: 11/22/18 Service Type: [id number] Hosp care 35 min high complexity Subjective: Nursing Report: Patient was visible on unit, Slept overnight without incident. CC: " Patient continues to hear voices of Divya but not as much today. She said that Divya ( the name for her voices) can have full control of her and that she doesnt have control of them. She wishes to start prolixin because that is what she was on before coming to the hospital. Patient was seen and evaluated by web content writer. She was observed in the common room interacting with peers before encounter. The patient reports attending and participating in day groups. Per nursing nobehavioral issues or overnight events reported. Patient is tolerating medications without side effects. Patient reports having good appetite and sound sleep overnight. At this current time the patient denies suicidal / homicidal ideation, intent or plan. The patient denied visual hallucinations at this time. Objective - Appearance Appearance: Obese Dysmorphic Features: No Hygiene: Normal Grooming: Fairly Well Kept - Behavior Psychomotor Activities: Normal Exhibits Abnormal Movement: No - Attitude and Relatedness Attitude and Relatedness: Cooperative Eye Contact: Fair - Speech Quality: Unpressured Latencies: Short Quantity: Terse - Mood Patient's Decription of Mood: "Okay" - Affect Observed Affect: Non-labile Affect Consistent with: Euthymia - Thought Process Patient's Thought Process: Disorganized Thought Content: No Passive Wish, No Suicidal Planning, No Homicidal Ideation, No Paranoid Ideation - Sensorium Experiencing Hallucinations: Yes Type of Hallucinations: Visual: No, Auditory: Yes - See note , Command: Yes - see note - Level of Consciousness Level of Consciousness: Alert Orientation: Yes Intact, Yes Orientated to Time, Yes Orientated to Place, Yes Orientated to Person - Impulse Control Impulse Control: Tenuous - Insight and Judgement Insight and Judgement: Poor - Group Participation Particating in Group Activities: Yes - Medication Management Medication Management Adherence: Yes Assessment - Assessment Merits Inpatient Hospitalization: For Immediate Safety 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 She attributes decompensation to missed HS po risperidone supplementation of Consta. Plan - Plan Treatment Plan: Patient continues to require inpatient hospitalization at this time. Resume prolixin at 3mg BID with plan to start NINA of prolixin before discharge. Resume risperdal 1mg qhs Resume paxil 20mg PO daily Continue cogentin 1mg BID Continue klonopin 1mg qhs PRN Continue seroquel 50mg BID PRN Coordinate aftercare with ACT. Goals to decrease auditory hallucinations and return to baseline Q15min observation Continued Medication Management: Start Medication Medications: Current Medications Acetaminophen (Tylenol Tab*) 650 mg PO Q4H PRN PRN Reason: PAIN or TEMP > 101 F Al Hydrox/Mg Hydrox/Simethicone (Maalox Plus*) 30 ml PO Q4H PRN PRN Reason: INDIGESTION Benztropine Mesylate (Cogentin Tab*) 1 mg PO BID [facility] Last Admin: 11/22/18 09:07 Dose: 1 mg Clonazepam (Klonopin Tab(*)) 1 mg PO BEDTIME PRN PRN Reason: ANXIETY Last Admin: 11/21/18 22:44 Dose: 1 mg Fluphenazine HCl (Prolixin Tab*) 3 mg PO BID [facility] Multivitamins (Theragran Tab*) 1 tab PO DAILY [facility] Last Admin: 11/22/18 09:07 Dose: 1 tab Nicotine (Nicotine Inhaler*) 10 mg INH Q2H PRN PRN Reason: CRAVING Quetiapine Fumarate (Seroquel Tab*) 50 mg PO BID PRN PRN Reason: AGITATION Last Admin: 11/21/18 05:40 Dose: 50 mg - Discharge Plan Discharge Plan: Inpatient Hospitalization Outpatient Program: ACT
[2018-11-22] MEDS: fluPHENAZine HCL TAB* 1 MG PO SCH (20:51)
--- NOTE | 2018-11-23 08:17 | PN ---
Subjective - Subjective Date of Service: 11/23/18 Service Type: [id number] Hosp care 25 min moderate complexity Subjective: Nursing Report: Patient was visible on unit, Slept overnight without incident. CC: " I am better" Patient denied hearing voices and reported getting good sleep overnight. She reported that the voices are not in control of her. She was observed eating breakfast in the dayroom before encounter. The patient plans to attend in day groups. Per nursing nobehavioral issues or overnight events reported. Patient is tolerating medications without side effects. Patient reports having good appetite. At this current time the patient denied suicidal / homicidal ideation, intent or plan. The patient denied visual hallucinations at this time. Objective - Appearance Dysmorphic Features: No Hygiene: Normal Grooming: Fairly Well Kept - Behavior Psychomotor Activities: Normal Exhibits Abnormal Movement: No - Attitude and Relatedness Attitude and Relatedness: Superficially Cooperative Eye Contact: Fair - Speech Quality: Unpressured Latencies: Normal Quantity: Appropriate - Mood Patient's Decription of Mood: "Fine" - Affect Observed Affect: Non-labile Affect Consistent with: Euthymia - Thought Process Patient's Thought Process: Goal Directed Thought Content: No Passive Wish, No Suicidal Planning, No Homicidal Ideation, No Paranoid Ideation - Sensorium Experiencing Hallucinations: No, Sensorium is Clear Type of Hallucinations: Visual: No, Auditory: No, Command: No - Level of Consciousness Level of Consciousness: Alert Orientation: Yes Intact, Yes Orientated to Time, Yes Orientated to Place, Yes Orientated to Person - Insight and Judgement Insight and Judgement: Fair - Group Participation Particating in Group Activities: Yes - Medication Management Medication Management Adherence: Yes Assessment - Assessment 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 She attributes decompensation to missed HS po risperidone supplementation of Consta. Plan - Plan Treatment Plan: Patient continues to require inpatient hospitalization at this time. She was restarted on outpatient medications and has been responding well to treatment Resume prolixin at 3mg BID with plan to start NINA of prolixin before discharge. Resume risperdal 1mg qhs Resume paxil 20mg PO daily Continue cogentin 1mg BID Continue klonopin 1mg qhs PRN Continue seroquel 50mg BID PRN Coordinate aftercare with ACT before discharge. # Lipid and HBA1c lab results Denied diabetes or family history EKG for prior cardiac history and anti-psychotic medication. Goals to decrease auditory hallucinations and return to baseline Q15min observation Patient on multiple anti-psychotics as this treatment has been effective in the past per providers from the ACT team. EKG results are normal Continued Medication Management: Continue Outpt Medication Medications: Current Medications Acetaminophen (Tylenol Tab*) 650 mg PO Q4H PRN PRN Reason: PAIN or TEMP > 101 F Last Admin: 11/22/18 14:00 Dose: 650 mg Al Hydrox/Mg Hydrox/Simethicone (Maalox Plus*) 30 ml PO Q4H PRN PRN Reason: INDIGESTION Benztropine Mesylate (Cogentin Tab*) 1 mg PO BID [facility] Last Admin: 11/22/18 20:51 Dose: 1 mg Clonazepam (Klonopin Tab(*)) 1 mg PO BEDTIME PRN PRN Reason: ANXIETY Last Admin: 11/21/18 22:44 Dose: 1 mg Fluphenazine HCl (Prolixin Tab*) 3 mg PO BID [facility] Last Admin: 11/22/18 20:51 Dose: 3 mg Multivitamins (Theragran Tab*) 1 tab PO DAILY [facility] Last Admin: 11/22/18 09:07 Dose: 1 tab Nicotine (Nicotine Inhaler*) 10 mg INH Q2H PRN PRN Reason: CRAVING Paroxetine HCl (Paxil Tab*) 20 mg PO DAILY [facility] Quetiapine Fumarate (Seroquel Tab*) 50 mg PO BID PRN PRN Reason: AGITATION Last Admin: 11/21/18 05:40 Dose: 50 mg Risperidone (Risperdal*) 1 mg PO BEDTIME [facility] Last Admin: 11/22/18 20:51 Dose: 1 mg - Discharge Plan Discharge Plan: Inpatient Hospitalization Outpatient Program: ACT
[2018-11-23 08:33] VITALS: BP 108/73
[2018-11-23] MEDS: PARoxetine HCL TAB* 20 MG PO SCH (08:35)
[2018-11-23] MEDS: Benztropine TAB* 1 MG PO SCH ×2 (08:35→21:14)
[2018-11-23] MEDS: fluPHENAZine HCL TAB* 1 MG PO SCH ×2 (08:35→21:14)
[2018-11-23] MEDS: Vitamin THERAPEUTIC TAB PO SCH (08:38)
[2018-11-23] MEDS: risperiDONE TAB* 1 MG PO SCH (21:14)
[2018-11-24 07:46] LABS: HDL Cholesterol 40.6 mg/dL
[2018-11-24] MEDS ORDERED: Loperamide LIQ* 2 MG/10 ML UDC PO PRN (09:01)
[2018-11-24] MEDS: PARoxetine HCL TAB* 20 MG PO SCH (09:50)
[2018-11-24] MEDS: Vitamin THERAPEUTIC TAB PO SCH (09:50)
[2018-11-24] MEDS: Benztropine TAB* 1 MG PO SCH ×2 (09:50→21:50)
[2018-11-24] MEDS: fluPHENAZine HCL TAB* 1 MG PO SCH ×2 (09:50→21:50)
--- NOTE | 2018-11-24 10:46 | PN ---
Subjective - Subjective Date of Service: 11/24/18 Service Type: [id number] Hosp care 25 min moderate complexity Subjective: Nursing Report: Patient was visible on unit, Slept overnight without incident. CC: " I am okay" Patient reported drinking milk and having a loose stool. She reported that she no longer is hearing voices. Patient reported getting good sleep overnight. She reported that the voices are not in control of her. The patient has been attending some day groups. Per nursing nobehavioral issues or overnight events reported. Patient is tolerating medications without side effects. Patient reports having good appetite. At this current time the patient denied suicidal and/or homicidal ideation, intent or plan. The patient denied visual hallucinations at this time. Objective - Appearance Dysmorphic Features: No Hygiene: Normal Grooming: Fairly Well Kept - Behavior Psychomotor Activities: Normal Exhibits Abnormal Movement: No - Attitude and Relatedness Attitude and Relatedness: Cooperative Eye Contact: Fair - Speech Quality: Unpressured Latencies: Normal Quantity: Appropriate - Mood Patient's Decription of Mood: "Okay" - Affect Observed Affect: Non-labile Affect Consistent with: Euthymia - Thought Process Patient's Thought Process: Goal Directed Thought Content: No Passive Wish, No Suicidal Planning, No Homicidal Ideation - Sensorium Experiencing Hallucinations: No, Sensorium is Clear Type of Hallucinations: Visual: No, Auditory: No, Command: No - Level of Consciousness Level of Consciousness: Alert Orientation: Yes Intact, Yes Orientated to Time, Yes Orientated to Place, Yes Orientated to Person - Impulse Control Impulse Control: Tenuous - Insight and Judgement Insight and Judgement: Fair - Group Participation Particating in Group Activities: Yes - Medication Management Medication Management Adherence: Yes Assessment - Assessment 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 Admitted to the [facility] currently compliant with medications and shows sound response to treatment. Plan - Plan Treatment Plan: Patient continues to require inpatient hospitalization at this time. She was restarted on outpatient medications and has been responding well to treatment Continue prolixin at 3mg BID Continue risperdal 1mg qhs Continue paxil 20mg PO daily Continue cogentin 1mg BID Continue klonopin 1mg qhs PRN Continue seroquel 50mg BID PRN (will not be discharged on) Start loperamide 2mg BID PRN for loose stool ACT team plans to come tomorrow to follow up with patient after discharge Goals to decrease auditory hallucinations and return to baseline To receive 50mg risperdal long acting injection tomorrow. Tentative discharge for tomorrow Q15min observation Metabolic panel within normal limits. Treatment plan confirmed with Jessica at the ACT team. Patient on 2 or more anti-psychotics as this treatment has been effective in the past for stabilization per past providers from the ACT team. No on clozaril due to intermittent compliance of oral medications. Continued Medication Management: Continue Outpt Medication Medications: Current Medications Acetaminophen (Tylenol Tab*) 650 mg PO Q4H PRN PRN Reason: PAIN or TEMP > 101 F Last Admin: 11/22/18 14:00 Dose: 650 mg Al Hydrox/Mg Hydrox/Simethicone (Maalox Plus*) 30 ml PO Q4H PRN PRN Reason: INDIGESTION Benztropine Mesylate (Cogentin Tab*) 1 mg PO BID [facility] Last Admin: 11/24/18 09:50 Dose: 1 mg Clonazepam (Klonopin Tab(*)) 1 mg PO BEDTIME PRN PRN Reason: ANXIETY Last Admin: 11/21/18 22:44 Dose: 1 mg Fluphenazine HCl (Prolixin Tab*) 3 mg PO BID [facility] Last Admin: 11/24/18 09:50 Dose: 3 mg Loperamide HCl (Imodium Liq*) 2 mg PO BID PRN PRN Reason: DIARRHEA Multivitamins (Theragran Tab*) 1 tab PO DAILY [facility] Last Admin: 11/24/18 09:50 Dose: Not Given Nicotine (Nicotine Inhaler*) 10 mg INH Q2H PRN PRN Reason: CRAVING Paroxetine HCl (Paxil Tab*) 20 mg PO DAILY [facility] Last Admin: 11/24/18 09:50 Dose: 20 mg Quetiapine Fumarate (Seroquel Tab*) 50 mg PO BID PRN PRN Reason: AGITATION Last Admin: 11/21/18 05:40 Dose: 50 mg Risperidone (Risperdal*) 1 mg PO BEDTIME [facility] Last Admin: 11/23/18 21:14 Dose: 1 mg - Discharge Plan Outpatient Program: ACT
--- NOTE | 2018-11-24 16:01 | PN ---
[facility]: Group Therapy Note - Service Type Service Type: [id number] Group Psychotherapy - Medication Education Group: Patient attended group and presented with flat affect that did not vary with discussion. Although responsive to direct prompts to respond to questions, patient did not engage in spontaneous conversation.
[2018-11-24] MEDS: risperiDONE TAB* 1 MG PO SCH (21:50)
[2018-11-25] MEDS: Vitamin THERAPEUTIC TAB PO SCH (08:16)
[2018-11-25] MEDS: fluPHENAZine HCL TAB* 1 MG PO SCH (08:16)
[2018-11-25] MEDS: Benztropine TAB* 1 MG PO SCH (08:16)
[2018-11-25] MEDS: PARoxetine HCL TAB* 20 MG PO SCH (08:16)
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
[2018-11-25] MEDS ORDERED: risperiDONE CONSTA* 50 MG IM ONE (09:00)
== END 2018-11-25 11:30 | disposition home or self-care (01) | DRG 885 ==
LOC: ED 22:05 → BSU 11-21 04:04
PROVIDERS: ADMIT Psychiatry & Neurology Psychiatry; ATTEND Psychiatry & Neurology Psychiatry
PROC: GZHZZZZ Group Psychotherapy (ICD-10-PCS; principal; 2018-11-24)
DX: F20.9 Schizophrenia, unspecified (principal); E11.9 Type 2 diabetes mellitus without complications; G47.30 Sleep apnea, unspecified; E66.9 Obesity, unspecified; M19.90 Unspecified osteoarthritis, unspecified site; F32.9 Major depressive disorder, single episode, unspecified; Z81.1 Family history of alcohol abuse and dependence; Z68.35 Body mass index [BMI] 35.0-35.9, adult; Z72.89 Other problems related to lifestyle; Z81.8 Family history of other mental and behavioral disorders; Z88.0 Allergy status to penicillin
CPT/HCPCS: 36415; 80053; 80061; 80307; 80320; 80329; 81003; 81015; 83036; 84443; 85025; 87077; 87086; 87186; 90853; 93005; 99222; 99232; 99233; 99238; 99285; A9270-GY; G0480

== ENCOUNTER 2018-12-19 19:43 | Inpatient (IN) | payer MEDICARE ==
--- NOTE | 2018-12-19 20:09 | ED ---
Psychiatric Complaint - HPI Summary HPI Summary: This patient is a 58 year old F presenting to ED with a chief complaint of auditory hallucinations since earlier today. She reports that she doesn't feel safe at home because the voices tell her thats shes making too much noise for the new neighbors with her boots on. She says that someone will come to hurt her if shes not quieter. The voices dont tell her to harm herself, but they tell her to have more manners, sit up straight, and to eat less food. She says she has been taking her medications. The patient rates the pain 0/10 in severity. Symptoms aggravated by nothing. Symptoms alleviated by nothing. Denies SI/HI. - History Of Current Complaint Chief Complaint: EDMentalHealth Time Seen by Provider: 12/19/18 19:52 Hx Obtained From: Patient Onset/Duration: Sudden Onset, Lasting Hours, Still Present Timing: Constant Severity Currently: None Aggravating Factor(s): Nothing Alleviating Factor(s): Nothing Associated Signs And Symptoms: Positive: Hallucinating - auditory Related History: Positive For: Prior Psychiatric Issues Has Suicidal: Denies: Thoughts Has Homicidal: Denies: Thoughts - Allergies/Home Medications Allergies/Adverse Reactions: Allergies Allergy/AdvReac Type Severity Reaction Status Date / Time ampicillin Allergy Swelling Verified 10/31/18 19:24 Home Medications: Home Medications fluPHENAZine HCL TAB* [Prolixin TAB*] 1 mg PO TID 12/19/18 [History Confirmed ] PMH/Surg Hx/FS Hx/Imm Hx Endocrine/Hematology History: Denies: Hx Anticoagulant Therapy Cardiovascular History: Denies: Hx Myocardial Infarction Respiratory History: Reports: Hx Sleep Apnea History: Denies: Hx Dialysis Musculoskeletal History: Reports: Hx Arthritis Sensory History: Reports: Hx Contacts or Glasses Denies: Hx Hearing Aid Opthamlomology History: Reports: Hx Contacts or Glasses Neurological History: Denies: Hx Dementia Psychiatric History: Reports: Hx Depression, Hx Inpatient Treatment, Hx Community Mental Health Tx, Hx Schizophrenia, Other Psychiatric Issues/ Disorders - Schizoaffective disorder Denies: Hx Eating Disorder, Hx of Violent Episodes Against Others - Cancer History Hx Chemotherapy: No Hx Radiation Therapy: No - Surgical History Surgery Procedure, Year, and Place: None - Immunization History Date of Tetanus Vaccine: UTD Date of Influenza Vaccine: UTD Infectious Disease History: No Infectious Disease History: Denies: Traveled Outside the [place] in Last 30 Days - Family History Known Family History: Positive: Other - Depression Negative: Cardiac Disease, Diabetes - Social History Alcohol Use: Weekly Alcohol Amount: states "once every other day" Hx Substance Use: No Substance Use Type: Reports: None Hx Tobacco Use: No Smoking Status (MU): Never Smoked Tobacco Type: Cigarettes Amount Used/How Often: pt has used no tobacco products in last 30days Review of Systems Negative: Fever Psychological: Other - auditory hallucinations; denies SI/HI All Other Systems Reviewed And Are Negative: Yes Physical Exam - Summary Physical Exam Summary: VITAL SIGNS: Reviewed. GENERAL: Patient is a well-developed and nourished FEMALE who is lying comfortable in the stretcher. Patient is not in any acute respiratory distress. HEAD AND FACE: No signs of trauma. No ecchymosis, hematomas or skull depressions. No sinus tenderness. EYES: PERRLA, EOMI x 2, No injected conjunctiva, no nystagmus. EARS: Hearing grossly intact. Ear canals and tympanic membranes are within normal limits. MOUTH: Oropharynx within normal limits. NECK: Supple, trachea is midline, no adenopathy, no JVD, no carotid bruit, no c- spine tenderness, neck with full ROM. CHEST: Symmetric, no tenderness at palpation LUNGS: Clear to auscultation bilaterally. No wheezing or crackles. CVS: Regular rate and rhythm, S1 and S2 present, no murmurs or gallops appreciated. ABDOMEN: Soft, non-tender. No signs of distention. No rebound no guarding, and no masses palpated. Bowel sounds are normal. EXTREMITIES: FROM in all major joints, no edema, no cyanosis or clubbing. NEURO: Alert and oriented x 3. No acute neurological deficits. Speech is normal and follows commands. SKIN: Dry and warm Triage Information Reviewed: Yes Vital Signs On Initial Exam: Initial Vitals Temp Pulse Resp BP Pulse Ox 96.8 F 89 18 123/86 96 12/19/18 19:45 12/19/18 19:45 12/19/18 19:45 12/19/18 19:45 12/19/18 19:45 Vital Signs Reviewed: Yes Diagnostics - Vital Signs Vital Signs Temp Pulse Resp BP Pulse Ox 12/19/18 19:45 96.8 F 89 18 123/86 96 - Laboratory Result Diagrams: 12/19/18 20:23 12/19/18 20:23 Lab Statement: Any lab studies that have been ordered have been reviewed, and results considered in the medical decision making process. Course/Dx - Course Assessment/Plan: This patient is a 58 year old F presenting to ED with a chief complaint of auditory hallucinations since earlier today. This patient was cleared for MHE at 2113. MHE done at [address] Kaur. The patient will be voluntarily admitted with dx of schizophrenia. - Differential Dx/Clinical Impression Differential Diagnosis/HQI/PQRI: Positive: Schizophrenia Provider Diagnosis: Schizophrenia Discharge - Sign-Out/Discharge Documenting (check all that apply): Patient Departure - voluntary admit Patient Received Moderate/Deep Sedation with Procedure: No - Discharge Plan Condition: Stable Disposition: ADMITTED TO [facility] Referrals: Asher Interiano MD [Primary Care Provider] - - Attestation Statements Document Initiated by Scribe: Yes Documenting Scribe: Mynor Jimenez Provider For Whom Scribe is Documenting (Include Credential): Leisa Julien MD Scribe Attestation: Mynor Taylor, scribed for Leisa Julien MD on 12/19/18 at 2246. Status of Scribe Document: Ready
[2018-12-19 20:30] LABS: ABS Basophils 0.1 10^3/ul (0-0.2); ABS Eosinophils 0 10^3/ul (0-0.6); ABS Monocytes 0.5 10^3/ul (0-0.8); ABS Neutrophils 7.3 10^3/ul (1.5-7.7); ABS Nucleated RBC 0 10^3/ul; Eosinophil % 0.3 %; Hematocrit 39 % (35-47); Hemoglobin 12.7 g/dl (12.0-16.0); Lymphocyte % 19.9 %; Mean Corpuscular HGB Conc 32 g/dl (31-36); Mean Corpuscular Hemoglobin 28 pg (27-31); Mean Corpuscular Volume 85 fL (80-97); Mean Platelet Volume 8.6 fL (7.4-10.4); Nucleated Red Blood Cells % 0; Platelet Count 214 10^3/ul (150-450); Red Blood Count 4.59 10^6/ul (4.00-5.40); Red Cell Distribution Width 14 % (10.5-15); White Blood Count 9.9 10^3/ul (3.5-10.8)
[2018-12-19 20:45] LABS: ALT 15 U/L (7-52); AST 15 U/L (13-39); Albumin/Globulin Ratio 1.3 (1-3); Alkaline Phosphatase 89 U/L (34-104); Anion Gap 8 mmol/L (2-11); BUN/Creatinine Ratio 10.3 (8-20); Blood Urea Nitrogen 8 mg/dL (6-24); CO2 Carbon Dioxide 25 mmol/L (22-32); Calcium 9.3 mg/dL (8.6-10.3); Chloride 106 mmol/L (101-111); EGFR African American 92.1 (>60); EGFR Non-African American 76.1 (>60); Globulin 3.1 g/dL (2-4); Glucose 128 mg/dL (70-100); Potassium 3.8 mmol/L (3.5-5.0); Sodium 139 mmol/L (135-145); Total Protein 7.1 g/dL (6.4-8.9)
[2018-12-19 20:51] LABS: Acetaminophen < 15 mcg/mL; Alcohol < 10 mg/dL (<10); Salicylate < 2.50 mg/dL (<30)
[2018-12-19 21:05] LABS: Barbiturates Urine Screen None Detected (None Detect); Benzodiazepine Urine Screen None Detected (None Detect); Urine Cannabinoids Screen None Detected (None Detect)
[2018-12-19 21:06] LABS: Urine Appearance Turbid; Urine Bacteria 1+ (Absent); Urine Bilirubin Negative (Negative); Urine Blood Negative (Negative); Urine Color Yellow; Urine Glucose Negative (Negative); Urine Ketones Trace (Negative); Urine Nitrite Positive (Negative); Urine Protein Negative (Negative); Urine Red Blood Cell 1+(3-5/hpf) (Absent); Urine Specific Gravity 1.013 (1.010-1.030); Urine Squamous Epithelial Cell Present (Absent); Urine Urobilinogen Negative (Negative); Urine White Blood Cell 3+(>20/hpf) (Absent)
[2018-12-19 21:07] LABS: TSH (Thyroid Stimulating Horm) 1.36 mcIU/mL (0.34-5.60)
[2018-12-19] MEDS ORDERED: risperiDONE TAB* 2 MG ONE (23:34)
[2018-12-19] MEDS ORDERED: Acetaminophen TAB* 325 MG ONE (23:34)
[2018-12-20] MEDS ORDERED: Al Hydrox/Mg Hydrox/Simet LIQ* 30 ML UDC PO PRN (01:53)
[2018-12-20] MEDS: PARoxetine HCL TAB* 20 MG PO SCH (08:18)
[2018-12-20] MEDS: Vitamin THERAPEUTIC TAB PO SCH (08:18)
[2018-12-20] MEDS: Benztropine TAB* 1 MG PO SCH ×2 (08:19→21:22)
--- NOTE | 2018-12-20 11:38 | HP ---
H&P (Free Text) History and Physical: Justification for admission: Immediate Safety. CC " I was hearing voices The patient was brought to [facility] by family. She reported that she felt unsafe and started hearing voices. She reported that she was taking medications. She reported that she has a hard time with walking in the grocery store and wants to build strength in her legs. She said that the voices are hot and cold and some make fun of her. She denied access to firearms or stockpiles of medications. She reported getting poor sleep. She reported good appetite. The patient denied suicidal and or homicidal ideation intent or plan. The patient denied visual hallucinations. Psychosis She endorses hearing things that other people do not hear. She denied feeling that TV is making references. Denied feeling that people are spying , following , or reading their thoughts. Bipolar Denied symptoms of justin such as having many ideas at once. Denied increased talkativeness where no one can interrupt. Denied feeling irritable most of the time while having an persistent abundance of energy most of the day without the use of energy drinks, stimulants, or recreational drug use. Denied an increase in intensity in goal directed activities. Denied having the decreased need to sleep for days , having prolonged elevated mood , or feeling on top of the world. Denied impulsive risky sexual encounters. Denied spending money recklessly , going on spending sprees wiping out savings. Denied impulsively traveling out of town or country, having super peter, and unrealistic wealth or fame. MDD Denied feeling depressed or having diminished interest in hobbies or interests which were present in the past , for most of the time, lasting more than 2 weeks. Denied having crying spells , feeling empty inside, feelings of hopelessness or worthless. Denied unintentional weight loss or appetite . Denied interruption of sleep or feeling tired throughout the day. Denied loss of energy or lack of motivation to complete tasks. Denied overwhelming feelings of guilt , or decreased concentration. Denied recurrent thoughts of . Denied feeling no purpose in life or would be better off . Anxiety Denied having symptoms of anxiety such as having times where heart feels that it is beating out of chest, sweaty palms, or shallow breathing. Denied having uncomfortable or intrusive thoughts. Denied feeling restless, high strung, or worrying too much most of the time. PAST PSYCHIATRIC HISTORY: Numerous hospitalizations with first one starting at age 21. She is currently under the care of [facility]. Most recent hospitalization was at [facility] in November 2018. FAMILY HISTORY: - Suicide: Denied family history of suicide. - Mental illness: Denied a history of mental health in immediate family members. - Substance abuse: Alcohol abuse in mother. SUBSTANCE ABUSE HISTORY: Drinks socially 2 beers a week, She denies any abuse of tobacco or illicit substances. PAST MEDICAL HISTORY: Significant for sleep apnea, diabetes, urinary incontinence. Social History: Patient lives alone is single never and has no children. Mental Status Exam on Admission APPEARANCE : 58 year old who appears stated age. Some what fair hygiene and grooming. BEHAVIOR: Cooperative , calm. EYE CONTACT: Fair PSYCHOMOTOR ACTIVITY: No psychomotor agitation or retardation. MOVEMENTS: No abnormal movements observed. SPEECH : Normal rate, rhythm, volume and tone. MOOD : "I am okay " AFFECT : Constricted THOUGHT PROCESS: Formulated and organized in a logical, linear goal directed manner. THOUGHT CONTENT: Delusions present PERCEPTION: Current auditory hallucinations. SUICIDALITY Denied suicidal ideation, intent or plan. HOMICIDALITY Denied homicidal ideation, intent or plan. ORIENTATION: Oriented to self, location, and time. Insight/judgment: Poor insight and judgment Diagnosis on Admission: Schizophrenia Assessment: 58 year old with history of schizophrenia came to the hospital for hearing voices and was admitted to the BSU at [facility]. Plan # Justification for Admission: For immediate safety per outlined in the [place] Mental Hygiene Code. # Voluntary admission. The patient requires inpatient admission at this time to assure safety, receive treatment and work toward stabilization. # Labs ordered: CBC, CMP, UDS, TSH, HBA1c, TSH, Toxicology screen, Urine analysis, and lipid profile. EKG ordered last admission in November 2018. #Admit to BSU, Q15 minute observation. Start regular diet. Encourage participation in activities on the milieu. # Obtain collateral information once release is signed. #Patient evaluated in ED and was determined by the emergency room Physician to be medically stable for admission to the BSU. # Collaboration with Social Work to work toward discharge planning. #Goals before discharge include: Decrease auditory hallucinations. #Medicine was consulted for abnormal UA and plan to start antibiotics for UTI. #PT consult for lower extremity strength training. Most recent vital signs BP128/81 P73 RR 17 T98.2F The risks, benefits, and alternative treatment options were discussed as well as of the risks of refusing treatment. After this discussion and an acknowledgement of this understanding was made. A risk benefit assessment of treatment was considered and discussed with the patient. When comparing the risks of treatment with the dangers of current clinical presentation. The benefits of treatment outweigh the treatment risks at this time. Risks of behavioral changes, Serotonin syndrome, metabolic risks and NMS were among some of the risks discussed. Vital Signs Temp Pulse Resp BP Pulse Ox 98.2 F 73 18 128/81 99 12/20/18 16:23 12/20/18 16:23 12/20/18 17:19 12/20/18 16:23 12/20/18 16:23 Sodium 139 mmol/L (135-145) 12/19/18 20:23 Potassium 3.8 mmol/L (3.5-5.0) 12/19/18 20:23 BUN 8 mg/dL (6-24) 12/19/18 20:23 Creatinine 0.78 mg/dL (0.51-0.95) 12/19/18 20:23 Calcium 9.3 mg/dL (8.6-10.3) 12/19/18 20:23 AST 15 U/L (13-39) 12/19/18 20:23 ALT 15 U/L (7-52) 12/19/18 20:23 Acetaminophen (Tylenol Tab*) 650 mg PO Q4H PRN PRN Reason: PAIN or TEMP > 101 F Al Hydrox/Mg Hydrox/Simethicone (Maalox Plus*) 30 ml PO Q4H PRN PRN Reason: INDIGESTION Benztropine Mesylate (Cogentin Tab*) 1 mg PO BID [facility] Last Admin: 12/20/18 08:19 Dose: Not Given Clonazepam (Klonopin Tab(*)) 1 mg PO BEDTIME [facility] Fluphenazine HCl (Prolixin Tab*) 2 mg PO BID [facility] Last Admin: 12/20/18 15:11 Dose: 2 mg Multivitamins (Theragran Tab*) 1 tab PO DAILY [facility] Last Admin: 12/20/18 08:18 Dose: 1 tab Paroxetine HCl (Paxil Tab*) 20 mg PO DAILY [facility] Last Admin: 12/20/18 08:18 Dose: 20 mg Risperidone (Risperdal*) 2 mg PO BEDTIME [facility]
--- NOTE | 2018-12-20 13:16 | PN ---
BSU: Group Therapy Note - Service Type Service Type: [id number] Group Psychotherapy - Cognitive Behavioral Group Therapy ( CBT):Patient was attentive and participatory in CBT programming this morning, and remained in good behavioral control. Patient expressed positive insights regarding relevant treatment interventions and goals.
[2018-12-20] MEDS: fluPHENAZine HCL TAB* 1 MG PO SCH ×2 (15:11→21:22)
[2018-12-20] MEDS ORDERED: cefTRIAXone(*) 1 GM in NS 0.9% 50 ML* 50 ML IVPB SCH (17:00)
[2018-12-20] MEDS: Ciprofloxacin TAB* 500 MG PO SCH (17:34)
[2018-12-20] MEDS ORDERED: fluPHENAZine HCL TAB* 1 MG PO SCH (21:00)
[2018-12-20] MEDS: Acetaminophen TAB* 325 MG PO PRN (21:21)
[2018-12-20] MEDS: risperiDONE TAB* 2 MG PO SCH (21:22)
[2018-12-20] MEDS: clonazePAM TAB(*) 1 MG PO SCH (21:22)
[2018-12-21] MEDS: Vitamin THERAPEUTIC TAB PO SCH (08:25)
[2018-12-21] MEDS: Ciprofloxacin TAB* 500 MG PO SCH (08:25)
[2018-12-21] MEDS: PARoxetine HCL TAB* 20 MG PO SCH (08:25)
[2018-12-21] MEDS: fluPHENAZine HCL TAB* 1 MG PO SCH ×2 (08:25→20:55)
--- NOTE | 2018-12-21 12:01 | PN ---
BSU: Group Therapy Note - Service Type Service Type: [id number] Group Psychotherapy - CBT Group Note: Philly was attentive and participatory in programming this morning, engaging well in discusion of symptoms, as she endorsed problems with auditory halluncinations as persisting. Despite this, she appeared to be able to process group discussion and participate in a relevant fashion.
[2018-12-21] MEDS: Benztropine TAB* 1 MG PO SCH ×2 (15:18→20:57)
--- NOTE | 2018-12-21 15:20 | PN ---
Subjective - Subjective Date of Service: 12/21/18 Service Type: 37215 Hosp care 35 min high complexity Subjective: Nursing Report: Patient was visible on unit, no chemical restraints or PRNs. No behavioral incidents. Attending group activities. CC: "I am doing better Patient was seen and evaluated by this provider in the common room . The patient reported she feels safe on the unit and is interacting with peers. She reported having an adequate appetite and sleep. The patient reports attending and participating in day groups. Per nursing no behavioral issues or overnight events reported. Patient reported that she is tolerating medications but refused cogentin because she said it gives her loose stool. She denied suicidal ideation, intent or plan. She denied homicidal ideation intent or plan. She denied auditory and or visual hallucinations. She is excited that her family is coming to visit before leaving for vacation. She reported that sometimes she has more control than the voices and tells them to go away. Objective - Appearance Appearance: Obese Dysmorphic Features: No Hygiene: Normal Grooming: Fairly Well Kept - Behavior Psychomotor Activities: Normal Exhibits Abnormal Movement: No - Attitude and Relatedness Attitude and Relatedness: Cooperative Eye Contact: Fair - Speech Quality: Unpressured Latencies: Normal Quantity: Appropriate - Mood Patient's Decription of Mood: "Okay" - Affect Observed Affect: Constricted Affect Consistent with: Euthymia - Thought Process Patient's Thought Process: Loose Associations Thought Content: No Passive Wish, No Suicidal Planning, No Homicidal Ideation, No Paranoid Ideation - Sensorium Experiencing Hallucinations: No, Sensorium is Clear Type of Hallucinations: Visual: No, Auditory: No, Command: No - Level of Consciousness Level of Consciousness: Alert Orientation: Yes Intact, Yes Orientated to Time, Yes Orientated to Place, Yes Orientated to Person - Impulse Control Impulse Control: Tenuous - Insight and Judgement Insight and Judgement: Fair - Group Participation Particating in Group Activities: Yes - Medication Management Medication Management Adherence: Yes Assessment - Assessment Merits Inpatient Hospitalization: For Immediate Safety Clinical Impression: 58 year old white female with a history of schizophrenia and multiple psychiatric hospitalizations, currently receiving treatment with good clinical response on the BSU Plan - Plan Treatment Plan: Name: YAHIR ALEXANDRE Birthdate: 1960 [id number] # The patient requires inpatient admission at this time to assure safety, receive treatment and work toward stabilization. # Q15 minute observation. #Goals before discharge include: Decrease auditory hallucinations. #Continue antibiotics for UTI per medicine recommendations. #PT consult placed #Plan to follow up with [facility] team upon discharge # Risperdal consta 50mg Injection due #Plan to discharge before Thursday. #Decrease cogentin to 0.5mg BID #Patient on wait list for more supportive housing options. # Plan to follow up with family after their visit this evening. Sodium 139 mmol/L (135-145) 12/19/18 20:23 Potassium 3.8 mmol/L (3.5-5.0) 12/19/18 20:23 BUN 8 mg/dL (6-24) 12/19/18 20:23 Creatinine 0.78 mg/dL (0.51-0.95) 12/19/18 20:23 Calcium 9.3 mg/dL (8.6-10.3) 12/19/18 20:23 AST 15 U/L (13-39) 12/19/18 20:23 ALT 15 U/L (7-52) 12/19/18 20:23 Vital Signs Temp Pulse Resp BP Pulse Ox 98.7 F 86 16 108/72 96 12/21/18 08:23 12/21/18 08:23 12/21/18 13:44 12/21/18 08:23 12/21/18 08:23 Acetaminophen (Tylenol Tab*) 650 mg PO Q4H PRN PRN Reason: PAIN or TEMP > 101 F Last Admin: 12/20/18 21:21 Dose: 650 mg Al Hydrox/Mg Hydrox/Simethicone (Maalox Plus*) 30 ml PO Q4H PRN PRN Reason: INDIGESTION Benztropine Mesylate (Cogentin Tab*) 1 mg PO BID [facility] Last Admin: 12/21/18 15:18 Dose: Not Given Ciprofloxacin (Cipro Tab*) 500 mg PO Q24HR [facility] Stop: 12/22/18 09:01 Last Admin: 12/21/18 08:25 Dose: 500 mg Clonazepam (Klonopin Tab(*)) 1 mg PO BEDTIME [facility] Last Admin: 12/20/18 21:22 Dose: 1 mg Fluphenazine HCl (Prolixin Tab*) 2 mg PO BID [facility] Last Admin: 12/21/18 08:25 Dose: 2 mg Multivitamins (Theragran Tab*) 1 tab PO DAILY [facility] Last Admin: 12/21/18 08:25 Dose: 1 tab Paroxetine HCl (Paxil Tab*) 20 mg PO DAILY [facility] Last Admin: 12/21/18 08:25 Dose: 20 mg Risperidone (Risperdal*) 2 mg PO BEDTIME [facility] Last Admin: 12/20/18 21:22 Dose: 2 mg Risperidone (Risperdal Consta*) 50 mg IM ONCE ONE Stop: 12/23/18 08:36 Continued Medication Management: Continue Outpt Medication Medications: Current Medications Acetaminophen (Tylenol Tab*) 650 mg PO Q4H PRN PRN Reason: PAIN or TEMP > 101 F Last Admin: 12/20/18 21:21 Dose: 650 mg Al Hydrox/Mg Hydrox/Simethicone (Maalox Plus*) 30 ml PO Q4H PRN PRN Reason: INDIGESTION Benztropine Mesylate (Cogentin Tab*) 1 mg PO BID [facility] Last Admin: 12/20/18 21:22 Dose: Not Given Ciprofloxacin (Cipro Tab*) 500 mg PO Q24HR [facility] Stop: 12/22/18 09:01 Last Admin: 12/21/18 08:25 Dose: 500 mg Clonazepam (Klonopin Tab(*)) 1 mg PO BEDTIME [facility] Last Admin: 12/20/18 21:22 Dose: 1 mg Fluphenazine HCl (Prolixin Tab*) 2 mg PO BID [facility] Last Admin: 12/21/18 08:25 Dose: 2 mg Multivitamins (Theragran Tab*) 1 tab PO DAILY [facility] Last Admin: 12/21/18 08:25 Dose: 1 tab Paroxetine HCl (Paxil Tab*) 20 mg PO DAILY [facility] Last Admin: 12/21/18 08:25 Dose: 20 mg Risperidone (Risperdal*) 2 mg PO BEDTIME [facility] Last Admin: 12/20/18 21:22 Dose: 2 mg Risperidone (Risperdal Consta*) 50 mg IM ONCE ONE Stop: 12/23/18 08:36 - Discharge Plan Discharge Plan: Inpatient Hospitalization
[2018-12-21] MEDS: risperiDONE TAB* 2 MG PO SCH ×2 (18:12→19:37)
[2018-12-21] MEDS: clonazePAM TAB(*) 1 MG PO SCH ×2 (18:12→19:36)
[2018-12-22] MEDS: fluPHENAZine HCL TAB* 1 MG PO SCH ×2 (07:37→20:32)
[2018-12-22] MEDS: Vitamin THERAPEUTIC TAB PO SCH (07:37)
[2018-12-22] MEDS: Benztropine TAB* 1 MG PO SCH ×2 (07:38→20:31)
[2018-12-22] MEDS: PARoxetine HCL TAB* 20 MG PO SCH (07:38)
[2018-12-22] MEDS: Ciprofloxacin TAB* 500 MG PO SCH (07:38)
[2018-12-22 07:53] VITALS: BP 116/74
--- NOTE | 2018-12-22 14:39 | PN ---
Subjective - Subjective Date of Service: 12/22/18 Service Type: [id number] Hosp care 35 min high complexity Subjective: Nursing Report: Patient was visible on unit, no chemical restraints or PRNs. Slept overnight without incident. CC: "I am okay Patient was seen and evaluated by this typewriter operator automatic. She said that the voices were strong overnight and that they were telling her mean things. She visited with her family overnight and said that she is sad that they are going on vacation without her. She is looking forward for their return on Thursday. The patient reported she feels safe on the unit. She reported having an adequate appetite and received better sleep overnight. Per nursing no behavioral issues or overnight events reported. Patient reported that she no longer needs cogentin because it gives her loose stool. She denied suicidal ideation, intent or plan. She denied homicidal ideation intent or plan. Objective - Appearance Appearance: Obese Hygiene: Normal Grooming: Fairly Well Kept - Behavior Psychomotor Activities: Abnormal-Decreased Exhibits Abnormal Movement: No - Attitude and Relatedness Attitude and Relatedness: Cooperative Eye Contact: Fair - Speech Quality: Unpressured Latencies: Normal Quantity: Appropriate - Mood Patient's Decription of Mood: "Okay" - Affect Observed Affect: Non-labile - Thought Process Patient's Thought Process: Goal Directed Thought Content: No Passive Wish, No Suicidal Planning, No Homicidal Ideation, No Paranoid Ideation - Sensorium Experiencing Hallucinations: Yes Type of Hallucinations: Visual: No, Auditory: Yes - improved , Command: No - Level of Consciousness Level of Consciousness: Alert Orientation: Yes Intact, Yes Orientated to Time, Yes Orientated to Place, Yes Orientated to Person - Impulse Control Impulse Control: Tenuous - Insight and Judgement Insight and Judgement: Fair - Group Participation Particating in Group Activities: Yes - Medication Management Medication Management Adherence: Yes Assessment - Assessment Merits Inpatient Hospitalization: For Stabilization Clinical Impression: 58 year old white female with a history of schizophrenia and multiple psychiatric hospitalizations, currently receiving treatment with good clinical response on the BSU Plan - Plan Treatment Plan: Name: YAHIR ALEXANDRE Birthdate: 1960 [id number] # The patient requires inpatient admission at this time to assure safety, receive treatment and work toward stabilization. # Q30 minute observation. #Goals before discharge include: Decrease auditory hallucinations. #Continue antibiotics for UTI per medicine recommendations. #PT consult placed #[facility] team upon discharge # Risperdal consta 50mg Injection due #Plan to discharge before Thursday. # Continue cogentin to 0.5mg BID #Patient on wait list for more supportive housing options. # Plan to follow up with family after their visit this evening. Message left for her Brother in law Jonas [phone] Continued Medication Management: Continue Outpt Medication Medications: Current Medications Acetaminophen (Tylenol Tab*) 650 mg PO Q4H PRN PRN Reason: PAIN or TEMP > 101 F Last Admin: 12/20/18 21:21 Dose: 650 mg Al Hydrox/Mg Hydrox/Simethicone (Maalox Plus*) 30 ml PO Q4H PRN PRN Reason: INDIGESTION Benztropine Mesylate (Cogentin Tab*) 0.5 mg PO BID [facility] Last Admin: 12/22/18 07:38 Dose: Not Given Clonazepam (Klonopin Tab(*)) 1 mg PO BEDTIME [facility] Last Admin: 12/21/18 19:36 Dose: Not Given Fluphenazine HCl (Prolixin Tab*) 2 mg PO BID [facility] Last Admin: 12/22/18 07:37 Dose: 2 mg Multivitamins (Theragran Tab*) 1 tab PO DAILY [facility] Last Admin: 12/22/18 07:37 Dose: 1 tab Paroxetine HCl (Paxil Tab*) 20 mg PO DAILY [facility] Last Admin: 12/22/18 07:38 Dose: 20 mg Risperidone (Risperdal*) 2 mg PO BEDTIME [facility] Last Admin: 12/21/18 19:37 Dose: Not Given Risperidone (Risperdal Consta*) 50 mg IM ONCE ONE Stop: 12/23/18 08:36 - Discharge Plan Discharge Plan: Inpatient Hospitalization
--- NOTE | 2018-12-22 15:53 | PN ---
BSU: Group Therapy Note - Service Type Service Type: [id number] Group Psychotherapy - Medication Education Group: Patient was attentive and participatory in group, and remained in good behavioral control. Patient expressed positive insights regarding relevant treatment interventions. Patient stated understanding of material discussed and had appropriate questions.
[2018-12-22] MEDS ORDERED: Loperamide CAP* 2 MG PO ONE (16:44)
[2018-12-22] MEDS: clonazePAM TAB(*) 1 MG PO SCH (20:31)
[2018-12-22] MEDS: risperiDONE TAB* 2 MG PO SCH (20:33)
[2018-12-22] MEDS: Acetaminophen TAB* 325 MG PO PRN (20:35)
[2018-12-23] MEDS: fluPHENAZine HCL TAB* 1 MG PO SCH (07:30)
[2018-12-23] MEDS: PARoxetine HCL TAB* 20 MG PO SCH (07:30)
[2018-12-23] MEDS: Benztropine TAB* 1 MG PO SCH (08:05)
[2018-12-23] MEDS: Vitamin THERAPEUTIC TAB PO SCH (08:05)
[2018-12-23] MEDS ORDERED: [UNRECOGNIZED DRUG - OTHER] IM ONE ×2 (08:35)
[2018-12-23] MEDS ORDERED: risperiDONE CONSTA* 50 MG IM ONE (11:00)
--- NOTE | 2018-12-23 14:51 | DS ---
Subjective - Subjective Service Types: 31206 [facility] complex over 30 min Discharge Date: 12/23/18 Subjective: CC: I am okay to go today Patient was seen and evaluated today. She reported that she looks forward to leaving the hospital today and seeing her family and the members from the ACT team tomorrow. She denied paranoid thoughts and or command hallucinations. She denied suicidal ideation intent or plan. She has been enjoying reading the sofatronic book because its [place]ic reference. Justification for admission: Immediate Safety. CC " I was hearing voices The patient was brought to [facility] by family. She reported that she felt unsafe and started hearing voices. She reported that she was taking medications. She reported that she has a hard time with walking in the grocery store and wants to build strength in her legs. She said that the voices are hot and cold and some make fun of her. She denied access to firearms or stockpiles of medications. She reported getting poor sleep. She reported good appetite. The patient denied suicidal and or homicidal ideation intent or plan. The patient denied visual hallucinations. Psychosis She endorses hearing things that other people do not hear. She denied feeling that TV is making references. Denied feeling that people are spying , following , or reading their thoughts. Bipolar Denied symptoms of justin such as having many ideas at once. Denied increased talkativeness where no one can interrupt. Denied feeling irritable most of the time while having an persistent abundance of energy most of the day without the use of energy drinks, stimulants, or recreational drug use. Denied an increase in intensity in goal directed activities. Denied having the decreased need to sleep for days , having prolonged elevated mood , or feeling on top of the world. Denied impulsive risky sexual encounters. Denied spending money recklessly , going on spending sprees wiping out savings. Denied impulsively traveling out of town or country, having super peter, and unrealistic wealth or fame. MDD Denied feeling depressed or having diminished interest in hobbies or interests which were present in the past , for most of the time, lasting more than 2 weeks. Denied having crying spells , feeling empty inside, feelings of hopelessness or worthless. Denied unintentional weight loss or appetite . Denied interruption of sleep or feeling tired throughout the day. Denied loss of energy or lack of motivation to complete tasks. Denied overwhelming feelings of guilt , or decreased concentration. Denied recurrent thoughts of . Denied feeling no purpose in life or would be better off . Anxiety Denied having symptoms of anxiety such as having times where heart feels that it is beating out of chest, sweaty palms, or shallow breathing. Denied having uncomfortable or intrusive thoughts. Denied feeling restless, high strung, or worrying too much most of the time. PAST PSYCHIATRIC HISTORY: Numerous hospitalizations with first one starting at age 21. She is currently under the care of [facility]. Most recent hospitalization was at [facility] in November 2018. FAMILY HISTORY: - Suicide: Denied family history of suicide. - Mental illness: Denied a history of mental health in immediate family members. - Substance abuse: Alcohol abuse in mother. SUBSTANCE ABUSE HISTORY: Drinks socially 2 beers a week, She denies any abuse of tobacco or illicit substances. PAST MEDICAL HISTORY: Significant for sleep apnea, diabetes, urinary incontinence. Social History: Patient lives alone is single never and has no children. Mental Status Exam on Admission APPEARANCE : 58 year old who appears stated age. Some what fair hygiene and grooming. BEHAVIOR: Cooperative , calm. EYE CONTACT: Fair PSYCHOMOTOR ACTIVITY: No psychomotor agitation or retardation. MOVEMENTS: No abnormal movements observed. SPEECH : Normal rate, rhythm, volume and tone. MOOD : "I am okay " AFFECT : Constricted THOUGHT PROCESS: Formulated and organized in a logical, linear goal directed manner. THOUGHT CONTENT: Delusions present PERCEPTION: Current auditory hallucinations. SUICIDALITY Denied suicidal ideation, intent or plan. HOMICIDALITY Denied homicidal ideation, intent or plan. ORIENTATION: Oriented to self, location, and time. Insight/judgment: Poor insight and judgment Diagnosis on Admission: Schizophrenia Diagnosis on Discharge: Schizophrenia Condition at the time of discharge: At the time of discharge patient showed improvement of sleep and appetite. The patient was not a danger to self or others. The patient denied suicidal ideations , intent or plans. The patient denied homicidal targets, ideations, intents or plans. This patient participated in psychosocial rehabilitation and gained some insight into problems. The patient gained insight into mental illness, triggers, and treatment. The patient took medication as prescribed. The patient denied side effects of medication and objective signs of side effects were not evident other than reporting loose stool with cogentin. Therapy Resources were offered to the patient. Patient was given a supply of prescriptions at the time of discharge. The patient plans to attend follow up care with the follow up arrangements that were discussed and put in place. Patient was asked to keep appointments as scheduled, take medication as prescribed, have routine follow up care with their primary care physician and refrain from any use of alcohol or drugs. Objective - Appearance Dysmorphic Features: No Hygiene: Normal Grooming: Fairly Well Kept - Behavior Psychomotor Activities: Normal Exhibits Abnormal Movement: No - Attitude and Relatedness Attitude and Relatedness: Cooperative Eye Contact: Fair - Speech Quality: Unpressured Latencies: Normal Quantity: Appropriate - Mood Patient's Decription of Mood: "Okay" - Affect Observed Affect: Non-labile Affect Consistent with: Euthymia - Thought Process Patient's Thought Process: Goal Directed Thought Content: No Passive Wish, No Suicidal Planning, No Homicidal Ideation, No Paranoid Ideation - Sensorium Experiencing Hallucinations: No, Sensorium is Clear Type of Hallucinations: Visual: No, Auditory: No, Command: No - Level of Consciousness Level of Consciousness: Alert Orientation: Yes Intact, Yes Orientated to Time, Yes Orientated to Place, Yes Orientated to Person - Impulse Control Impulse Control: Tenuous - Insight and Judgement Insight and Judgement: Fair - Group Participation Particating in Group Activities: Yes - Medication Management Medication Management Adherence: Yes Treatment Course & Assessment Clinical Course & Impression: Labs ordered included CBC, CMP, UDS, TSH, HBA1c, TSH, Toxicology screen, Urine analysis, and lipid profile. Labs were reviewed and did not require the need for further evaluation. Vital signs were monitored during the course of admission. EKG ordered during last admission November for risk of QT prolongation of antipsychotic medication and was reviewed The patient was admitted to the adult behavioral unit and placed on 15 minute check for safety. At a later time the patient was on Q30 minute observation and staff pass privileges. With those limits being extended , there were no occurrence of behavioral incidents. The patient did well on the unit and went to groups. Interacted with peers had adequate sleep and regular appetite. Tolerated medication changes without side effects. Group therapy and services were offered. The risks, benefits, and alternative treatment options were discussed as well as of the risks of refusing treatment. Treatment associated risks discussed . After this discussion and an acknowledgement of this understanding , made the decision for the current type of treatment. Follow up care appointments were put in place for follow up care within 7 days of discharge. It was observed over the course of her admission that the patients mood is dependent on the level of contact she has with her family, the patient is afraid of being alone and uses the hospital as a resource to feel connected with others, she benefits from outpatient resources such as the the ACT team to maintain stabilization. Patient presents with a broader range of affect, and the absence of depressed mood, delusions, perceptual disturbances and or suicidal ideation. Overall, the patient responded well to inpatient treatment as evidenced by their report of strengthening of coping mechanisms , reduced distress, and more positive outlook on circumstances. Of note there was an improvement psychotic symptoms and absence of suicidal ideation. The patient expressed readiness for discharge home and plans to follow up with the ACT team tomorrow. She misses her family and plans to call her sister and brother in law daily. Her family was contacted and they are in agreement with discharge and maintain contact until they return on Thursday. Safety precautions were put in place which included involving family to closely monitor for changes in mental state. In addition, implementing follow up care Family and patient instructed to immediately call 911 should any safety concerns arise. According to HOMICIDE INVESTIGATOR there were no indications of prescription abuse or diversion were present. Patient advised of the lethality and dangerousness of combining medications with pain medications and/ or with alcohol and acknowledged this understanding. AIMS was performed and was . Patient received risperdal consta 50mg today without complications. Patient did not have side effects from medication. She is looking to seeing her family when they return on Thursday. Medicine was consulted for abnormal UA and plan to start antibiotics for UTI of cipro for 3 days and patient refused to take. PT consult was made for lower extremity strength training. Patient and family instructed of the appropriate use of the emergency room and psychiatric inpatient hospital. The patient was advised of the 24 hour / 7 days a week availability of the emergency room and to call 911 in the event of becoming suicidal and/ or homicidal and for all other emergencies. The patient was informed of the contact information for [facility], Suicide Prevention and Crisis Services, National Suicide Prevention Lifeline, [facility], Alcoholics Anonymous, and [facility]. The patient was started on her outpatient medications and showed a favorable clinical response. A Consult was placed for a abnormal urine analysis indicating UTI. Antibiotics were started and the patient declined. Improvements in patient from the time of admission include: Improved affect, sleep and decrease in anxiety. No longer suicidal and no longer having feelings of hopelessness. Risk factors: single, history of mental illness. Protective factors: Has strong support system. No history of service, currently no feelings of hopelessness, not in a occupation of social isolation, doesnt have multiple medical conditions, no family history of suicide, doesnt have access to firearms. Doesnt have command hallucinations and or psychotic features at this time. No history of substance abuse. No history of alcohol abuse. No changes in his relationship status, housing, job, or school etc.. Currently future orientated. Patient engaged in treatment and compliant with medication. Merits Inpatient Hospitalization: No Clear for Discharge: Adequate Clinical Respons Discharge Planning - Discharge Planning Discharge Plan: Outpatient Follow Up Outpatient Program: ACT Recommendations for Continuing Care: Medication Management Medications: Current Medications Acetaminophen (Tylenol Tab*) 650 mg PO Q4H PRN PRN Reason: PAIN or TEMP > 101 F Last Admin: 12/22/18 20:35 Dose: 650 mg Al Hydrox/Mg Hydrox/Simethicone (Maalox Plus*) 30 ml PO Q4H PRN PRN Reason: INDIGESTION Benztropine Mesylate (Cogentin Tab*) 0.5 mg PO BID [facility] Last Admin: 12/23/18 08:05 Dose: Not Given Clonazepam (Klonopin Tab(*)) 1 mg PO BEDTIME [facility] Last Admin: 12/22/18 20:31 Dose: 1 mg Fluphenazine HCl (Prolixin Tab*) 2 mg PO BID [facility] Last Admin: 12/23/18 07:30 Dose: 2 mg Multivitamins (Theragran Tab*) 1 tab PO DAILY [facility] Last Admin: 12/23/18 08:05 Dose: Not Given Paroxetine HCl (Paxil Tab*) 20 mg PO DAILY [facility] Last Admin: 12/23/18 07:30 Dose: 20 mg Risperidone (Risperdal*) 2 mg PO BEDTIME [facility] Last Admin: 12/22/18 20:33 Dose: 2 mg Discharge Planning: Prescriptions provided for discharge [x] Yes [] No Follow up care details as per social work arrangements. Patient response to discharge plan: [] eager for discharge [x] agreeable with discharge plan [] ambivalent about discharge [] disagrees with discharge today
== END 2018-12-31 11:15 | disposition home or self-care (01) | DRG 885 ==
LOC: ED 19:43 → BSU 22:30 → UNDODISIN 12-23 14:38
PROVIDERS: ADMIT Psychiatry & Neurology Psychiatry; ATTEND Psychiatry & Neurology Psychiatry
PROC: GZHZZZZ Group Psychotherapy (ICD-10-PCS; principal; 2018-12-20)
DX: F20.9 Schizophrenia, unspecified (principal); N39.0 Urinary tract infection, site not specified; G47.30 Sleep apnea, unspecified; M19.90 Unspecified osteoarthritis, unspecified site; F32.9 Major depressive disorder, single episode, unspecified; E11.9 Type 2 diabetes mellitus without complications; Z81.8 Family history of other mental and behavioral disorders; Z72.89 Other problems related to lifestyle; Z88.1 Allergy status to other antibiotic agents; Z81.1 Family history of alcohol abuse and dependence
CPT/HCPCS: 36415; 80053; 80307; 80320; 80329; 81003; 81015; 84443; 85025; 87077; 87086; 87186; 90853; 99222; 99231; 99232; 99233; 99238; 99284; A9270-GY; G0480; G8978-GP-CH; G8979-GP-CH; G8980-GP-CH; J0696; J2794

== ENCOUNTER 2018-12-23 17:00 | Inpatient (IN) | payer MEDICARE ==
[2018-12-23] MEDS ORDERED: Nicotine Inhaler* 10 MG AMP INH PRN (17:08)
--- NOTE | 2018-12-23 17:14 | ED ---
Psychiatric Complaint - HPI Summary HPI Summary: A 58 y/o F with pert PMHx: schizophrenia presents to ED with auditory hallucinations onset this afternoon. Pt was released from [facility] this AM, and when she got home, she began to hear the voices. She states my wires are crossed in my brain, and the voices are hurting me. The voices are saying they will punish her. Associated sx: feeling catatonic, SI which resolved, HI. She denies drugs and ETOH and says she's been medication compliant. - History Of Current Complaint Time Seen by Provider: 12/23/18 17:08 Hx Obtained From: Patient Onset/Duration: Sudden Onset, Lasting Hours, Still Present Timing: Constant Severity Initially: Moderate Severity Currently: Moderate Associated Signs And Symptoms: Positive: Hallucinating - auditory Related History: Positive For: Prior Psychiatric Issues Has Suicidal: Reports: Thoughts - resolved Has Homicidal: Reports: Thoughts - Allergies/Home Medications Allergies/Adverse Reactions: Allergies Allergy/AdvReac Type Severity Reaction Status Date / Time ampicillin Allergy Swelling Verified 10/31/18 19:24 Home Medications: Home Medications Al Hydrox/Mg Hydrox/Simet LIQ* [Maalox Plus*] 30 ml PO Q4H PRN 12/23/18 [ History Confirmed 12/23/18] Benztropine TAB* [Cogentin TAB*] 0.5 mg PO BID 12/23/18 [History Confirmed 12/23] Vitamin THERAPEUTIC TAB* [Theragran TAB*] 1 tab PO DAILY 12/23/18 [History Confirmed 12/23/18] risperiDONE [Risperdal] 2 mg PO BEDTIME 12/23/18 [History Confirmed 12/23/18] PMH/Surg Hx/FS Hx/Imm Hx Previously Healthy: No Endocrine/Hematology History: Denies: Hx Anticoagulant Therapy Cardiovascular History: Reports: Other Cardiovascular Problems/Disorders - arrhythmia Denies: Hx Myocardial Infarction Respiratory History: Reports: Hx Sleep Apnea History: Denies: Hx Dialysis Musculoskeletal History: Reports: Hx Arthritis Sensory History: Reports: Hx Contacts or Glasses Denies: Hx Hearing Aid Opthamlomology History: Reports: Hx Contacts or Glasses Neurological History: Denies: Hx Dementia, Hx Headaches, Hx Migraine Psychiatric History: Reports: Hx Anxiety, Hx Depression, Hx Panic Disorder, Hx Inpatient Treatment, Hx Community Mental Health Tx, Hx Schizophrenia, Hx Suicide Attempt, Other Psychiatric Issues/Disorders - Schizoaffective disorder Denies: Hx Eating Disorder, Hx of Violent Episodes Against Others - Cancer History Hx Chemotherapy: No Hx Radiation Therapy: No - Surgical History Surgery Procedure, Year, and Place: None - Immunization History Date of Tetanus Vaccine: UTD Date of Influenza Vaccine: UTD - Family History Known Family History: Positive: Other - Depression Negative: Cardiac Disease, Diabetes - Social History 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 Lives: Alone Alcohol Use: Occasionally Alcohol Amount: states "once every other day" Hx Substance Use: No Substance Use Type: Reports: None Hx Tobacco Use: No Smoking Status (MU): Never Smoked Tobacco Type: Cigarettes Amount Used/How Often: pt has used no tobacco products in last 30days Review of Systems Negative: Fever, Chills Negative: Erythema Negative: Sore Throat Negative: Chest Pain Negative: Shortness Of Breath, Cough Negative: Abdominal Pain, Vomiting, Nausea Negative: dysuria, hematuria Negative: Myalgia, Edema Negative: Rash Neurological: Other - neg: dizziness Psychological: Other - pos: SI resolved, auditory hallcucinations, HI, feeling catatonic All Other Systems Reviewed And Are Negative: Yes Physical Exam - Summary Physical Exam Summary: Constitutional: Well-developed, Well-nourished, Alert. (-) Distressed Skin: Warm, Dry HENT: Normocephalic; Atraumatic Eyes: Conjunctiva normal Neck: Musculoskeletal ROM normal neck. (-) JVD, (-) Stridor, (-) Tracheal deviation Cardio: Rhythm regular, rate normal, Heart sounds normal; Intact distal pulses; The pedal pulses are 2+ and symmetric. Radial pulses are 2+ and symmetric. (-) Murmur Pulmonary/Chest wall: Effort normal. (-) Respiratory distress, (-) Wheezes, (-) Rales Abd: Soft, (-) epigastric tenderness, (-) Distension, (-) Guarding, (-) Rebound Musculoskeletal: (-) Edema Lymph: (-) Cervical adenopathy Neuro: Alert, Oriented x3 Psych: Mood and affect Normal Triage Information Reviewed: Yes Vital Signs Reviewed: Yes Diagnostics - Laboratory Result Diagrams: 12/23/18 17:57 12/23/18 17:57 Lab Statement: Any lab studies that have been ordered have been reviewed, and results considered in the medical decision making process. Re-Evaluation - Re-Evaluation 1 Re-Evaluation Time: 18:18 Change: Worse Comment: Pt being physically violent towards staff. Course/Dx - Course Course Of Treatment: A 58 y/o F with pert PMHx: schizophrenia presents to ED with auditory hallucinations onset this afternoon. Pt was released from [facility] this AM, and when she got home, she began to hear the voices. She states my wires are crossed in my brain, and the voices are hurting me. The voices are saying they will punish her. Associated sx: feeling catatonic, SI which resolved, HI. She denies drugs and ETOH and says she's been medication compliant. Patient's hypertension is asymptomatic. Pt is medically clear for E at 1715. At 2154: Per MH counselor, pt will be a voluntary admit per Dr. Cantu, psych. Sx: schizophrenia. - Differential Dx/Clinical Impression Provider Diagnosis: Schizophrenia Discharge - Sign-Out/Discharge Documenting (check all that apply): Patient Departure - ADMIT [facility] - Discharge Plan Dis[place] [place]errals: Asher Interiano MD [Primary Care Provider] - - Attestation Statements Document Initiated by Scribe: Yes Documenting Scribe: Brandyn Swift Provider For Whom Scribe is Documenting (Include Credential): Dr. Jackson Buckner MD Scribe Attestation: Brandyn Taylor, scribed for Dr. Jackson Buckner MD on 12/23/18 at 2153. Status of Scribe Document: Ready
[2018-12-23 18:15] LABS: ABS Basophils 0.1 10^3/ul (0-0.2); ABS Eosinophils 0.1 10^3/ul (0-0.6); ABS Lymphocytes 2.1 10^3/ul (1.0-4.8); ABS Monocytes 0.6 10^3/ul (0-0.8); ABS Neutrophils 7.4 10^3/ul (1.5-7.7); ABS Nucleated RBC 0 10^3/ul; Eosinophil % 0.9 %; Hematocrit 42 % (35-47); Hemoglobin 13.6 g/dl (12.0-16.0); Lymphocyte % 20.4 %; Mean Corpuscular HGB Conc 33 g/dl (31-36); Mean Corpuscular Hemoglobin 28 pg (27-31); Mean Corpuscular Volume 87 fL (80-97); Nucleated Red Blood Cells % 0; Platelet Count 235 10^3/ul (150-450); Red Cell Distribution Width 15 % (10.5-15); White Blood Count 10.4 10^3/ul (3.5-10.8)
[2018-12-23] MEDS ORDERED: Haloperidol TAB* 5 MG PO ONE (18:23)
[2018-12-23] MEDS ORDERED: LORazepam TAB(*) 1 MG PO ONE (18:23)
[2018-12-23] MEDS ORDERED: Mouth Piece, Nicotine* 1 EACH CARTRIDGE INH PRN (18:24)
[2018-12-23 18:25] LABS: ALT 21 U/L (7-52); AST 22 U/L (13-39); Albumin 4.4 g/dL (3.2-5.2); Albumin/Globulin Ratio 1.3 (1-3); Alkaline Phosphatase 85 U/L (34-104); Anion Gap 6 mmol/L (2-11); BUN/Creatinine Ratio 14.5 (8-20); Blood Urea Nitrogen 11 mg/dL (6-24); CO2 Carbon Dioxide 28 mmol/L (22-32); Calcium 9.5 mg/dL (8.6-10.3); Chloride 105 mmol/L (101-111); EGFR African American 94.9 (>60); EGFR Non-African American 78.4 (>60); Globulin 3.3 g/dL (2-4); Glucose 115 mg/dL (70-100); Potassium 4.1 mmol/L (3.5-5.0); Sodium 139 mmol/L (135-145); Total Protein 7.7 g/dL (6.4-8.9)
[2018-12-23 18:40] LABS: Acetaminophen < 15 mcg/mL; Alcohol < 10 mg/dL (<10); Salicylate < 2.50 mg/dL (<30)
[2018-12-23 18:55] LABS: TSH (Thyroid Stimulating Horm) 1.46 mcIU/mL (0.34-5.60)
[2018-12-23] MEDS ORDERED: clonazePAM TAB(*) 1 MG ONE (22:41)
[2018-12-23] MEDS ORDERED: risperiDONE TAB* 2 MG ONE (22:42)
[2018-12-23] MEDS ORDERED: Al Hydrox/Mg Hydrox/Simet LIQ* 30 ML UDC PO PRN (22:46)
[2018-12-23] MEDS ORDERED: Nicotine GUM* 2 MG PO PRN (22:47)
[2018-12-23] MEDS: clonazePAM TAB(*) 1 MG PO SCH (22:50)
[2018-12-23] MEDS: risperiDONE TAB* 2 MG PO SCH (22:51)
[2018-12-23] MEDS: fluPHENAZine HCL TAB* 1 MG PO SCH (23:01)
[2018-12-24] MEDS: fluPHENAZine HCL TAB* 1 MG PO SCH ×2 (07:00→20:54)
[2018-12-24] MEDS: PARoxetine HCL TAB* 20 MG PO SCH (07:00)
[2018-12-24] MEDS: Multivitamins/Minerals TAB PO SCH (07:00)
[2018-12-24] MEDS: Benztropine TAB* 1 MG PO SCH ×2 (07:00→20:56)
[2018-12-24] MEDS ORDERED: Ciprofloxacin TAB* 500 MG PO ONE (12:02)
--- NOTE | 2018-12-24 13:42 | HP ---
HISTORY AND PHYSICAL: DATE OF ADMISSION: 12/23/18 PROVIDER: Fabi Ryan NP in Psychiatry. SUPERVISING PHYSICIAN: Cedric Frank MD * (DICTATED BY FABI RYAN NP ) JUSTIFICATION FOR ADMISSION: The patient is in need of 24-hour supervision and care secondary to gross disorganization. CHIEF COMPLAINT: "I feel hopeless and helpless, and my frontal lobe is all messed up." HISTORY OF PRESENT ILLNESS: The patient is a 58-year-old single white female with history of schizophrenia who arrived here on a voluntary status hours after being discharged from this unit with the understanding that she would take care of herself in the outpatient setting. When she is seen this morning, 12/24/18, she is confused and talks about some bizarre delusions that include this race and sports book writer and something called phonetel that is listening to her apparently. She states "I feel like I am in the darkness." She misses her friend, Leonie Pierce, in [place]. Clearly not much has changed since the time she was discharged to the time she came back to the hospital, but it should be noted that at her discharge she was more organized and pleasant and now she is significantly disorganized and bizarre, although she still is pleasant and wanting to have "good behavior." PAST PSYCHIATRIC HISTORY: Numerous hospitalizations with first one starting at age 21. She is currently under the care of [facility]. Most recent hospitalization was at [facility] in November 2018. FAMILY HISTORY: - Suicide: Denied family history of suicide. - Mental illness: Denied a history of mental health in immediate family members. - Substance abuse: Alcohol abuse in mother. SUBSTANCE ABUSE HISTORY: Drinks socially 2 beers a week, She denies any abuse of tobacco or illicit substances. PAST MEDICAL HISTORY: Significant for sleep apnea, diabetes, urinary incontinence. Social History: Patient lives alone is single never and has no children. Mental Status Exam on Admission APPEARANCE : 58 year old who appears stated age. Some what fair hygiene and grooming. BEHAVIOR: Cooperative , calm. EYE CONTACT: Good PSYCHOMOTOR ACTIVITY: No psychomotor agitation or retardation. MOVEMENTS: No abnormal movements observed. SPEECH : Normal rate, rhythm, volume and tone. MOOD : "I am confused " AFFECT : Constricted THOUGHT PROCESS: Formulated and organized in a logical, linear goal directed manner. THOUGHT CONTENT: Delusions present PERCEPTION: Current auditory hallucinations. SUICIDALITY Denied suicidal ideation, intent or plan. HOMICIDALITY Denied homicidal ideation, intent or plan. ORIENTATION: Oriented to self, location, and time. Insight/judgment: Poor insight and judgment Diagnosis on Admission: Schizophrenia Assessment: 58 year old with history of schizophrenia came to the hospital for hearing voices and was admitted to the B[facility] at [facility]. Plan # Justification for Admission: For immediate safety per outlined in the [facility] Code. # Voluntary admission. The patient requires inpatient admission at this time to assure safety, receive treatment and work toward stabilization. # Labs ordered: CBC, CMP, UDS, TSH, HBA1c, TSH, Toxicology screen, Urine analysis, and lipid profile. EKG ordered last admission in November 2018. #Admit to BSU, Q15 minute observation. Start regular diet. Encourage participation in activities on the milieu. # Obtain collateral information once release is signed. #Patient evaluated in ED and was determined by the emergency room Physician to be medically stable for admission to the BSU. # Collaboration with Social Work to work toward discharge planning. #Goals before discharge include: Decrease auditory hallucinations. #Medicine was consulted for abnormal UA and plan to start antibiotics for UTI. #PT consult for lower extremity strength training. The risks, benefits, and alternative treatment options were discussed as well as of the risks of refusing treatment. After this discussion and an acknowledgement of this understanding was made. A risk benefit assessment of treatment was considered and discussed with the patient. When comparing the risks of treatment with the dangers of current clinical presentation. The benefits of treatment outweigh the treatment risks at this time. Risks of behavioral changes, Serotonin syndrome, metabolic risks and NMS were among some of the risks discussed. Vital Signs T 97.6, P 73, R 16, O2Sat 99, 151/88 FABI RYAN, PAUL [id number]/CPS #: [id number] MENDEZ
[2018-12-24] MEDS ORDERED: risperiDONE-M * 1 MG TAB.ORADIS PO PRN (15:27)
[2018-12-24] MEDS ORDERED: LORazepam TAB(*) 1 MG PO PRN (15:28)
[2018-12-24] MEDS: clonazePAM TAB(*) 1 MG PO SCH (20:53)
[2018-12-24] MEDS: risperiDONE TAB* 2 MG PO SCH (20:55)
[2018-12-25] MEDS: fluPHENAZine HCL TAB* 1 MG PO SCH ×2 (08:31→20:33)
[2018-12-25] MEDS: Multivitamins/Minerals TAB PO SCH (08:31)
[2018-12-25] MEDS: PARoxetine HCL TAB* 20 MG PO SCH (08:31)
[2018-12-25] MEDS: Lactobacillus Acidophilus* 1 TAB PO SCH (08:32)
[2018-12-25] MEDS: Benztropine TAB* 1 MG PO SCH ×2 (08:32→20:33)
--- NOTE | 2018-12-25 17:09 | PN ---
Subjective - Subjective Date of Service: 12/25/18 Service Type: 60660 Hosp care 25 min moderate complexity Subjective: Yahir remains in control of her behaviors. Walking around the unit at times responding to internal stimuli. Says she continues to hear voices giving her instructions like use the bathroom, eat and so on. Voices doesn't tell her to harm others or self. Eating and sleeping fine and taking her meds. Objective - Appearance Appearance: Obese Hygiene: Mal-odorous Grooming: Disheveled - Behavior Psychomotor Activities: Normal Exhibits Abnormal Movement: No - Attitude and Relatedness Attitude and Relatedness: Appropriate Eye Contact: Good - Speech Quality: Unpressured Latencies: Normal Quantity: Appropriate - Mood Patient's Decription of Mood: "Good" - Affect Observed Affect: Constricted - Thought Process Patient's Thought Process: Coherent, Goal Directed Thought Content: No Passive Wish, No Suicidal Planning, No Homicidal Ideation, No Paranoid Ideation - Sensorium Experiencing Hallucinations: Yes Type of Hallucinations: Visual: No, Auditory: Yes, Command: Yes - Level of Consciousness Level of Consciousness: Alert Orientation: Yes Intact, Yes Orientated to Time, Yes Orientated to Place, Yes Orientated to Person - Impulse Control Impulse Control: Intact - Insight and Judgement Insight and Judgement: Poor - Group Participation Particating in Group Activities: No - Medication Management Medication Management Adherence: Yes Assessment - Assessment Merits Inpatient Hospitalization: For Immediate Safety, For Stabilization, Pending Safe DC Plan Plan - Plan Treatment Plan: Name: YAHIR ALEXANDRE Birthdate: 1960 [id number] Continued Medication Management: Continue Outpt Medication Medications: Current Medications Acetaminophen (Tylenol Tab*) 650 mg PO Q4H PRN PRN Reason: PAIN; OR TEMP > 101 Al Hydrox/Mg Hydrox/Simethicone (Maalox Plus*) 30 ml PO Q4H PRN PRN Reason: INDIGESTION Benztropine Mesylate (Cogentin Tab*) 0.[address] [facility] Last Admin: 12/25/18 08:32 Dose: Not Given Clonazepam (Klonopin Tab(*)) [address] [facility] Last Admin: 12/24/18 20:53 Dose: 1 mg Device (Nicotine Mouth Piece*) 1 each INH .USE W/ CARTRIDGE PRN PRN Reason: WITHDRAWAL - NICOTINE Fluphenazine HCl (Prolixin Tab*) [address] [facility] Last Admin: 12/25/18 08:31 Dose: 2 mg Lactobacillus Rhamnosus (Lactobacillus Acidophilus*) [address] [facility] Last Admin: 12/25/18 08:32 Dose: 1 tab Lorazepam (Ativan Tab(*)) 1 mg PO Q6H PRN PRN Reason: ANXIETY Multivitamins/Minerals (Theragran/Minerals Tab*) [address] [facility] Last Admin: 12/25/18 08:31 Dose: 1 tab Nicotine (Nicotine Inhaler*) 10 mg INH Q2H PRN PRN Reason: CRAVING Nicotine Polacrilex (Nicotine Gum*) 2 mg PO Q2H PRN PRN Reason: CRAVING Paroxetine HCl (Paxil Tab*) [address] [facility] Last Admin: 12/25/18 08:31 Dose: 20 mg Risperidone (Risperdal*) [address] [facility] Last Admin: 12/24/18 20:55 Dose: 2 mg Risperidone (Risperdal-M Tab *) 1 mg PO DAILY PRN; Protocol PRN Reason: AGITATION - Discharge Plan Discharge Plan: Outpatient Follow Up Outpatient Program: [facility]
[2018-12-25] MEDS: Acetaminophen TAB* 325 MG PO PRN (20:32)
[2018-12-25] MEDS: clonazePAM TAB(*) 1 MG PO SCH (20:33)
[2018-12-25] MEDS: risperiDONE TAB* 2 MG PO SCH (20:33)
[2018-12-26] MEDS: Lactobacillus Acidophilus* 1 TAB PO SCH (09:49)
[2018-12-26] MEDS: Multivitamins/Minerals TAB PO SCH (09:49)
[2018-12-26] MEDS: PARoxetine HCL TAB* 20 MG PO SCH (09:49)
[2018-12-26] MEDS: fluPHENAZine HCL TAB* 1 MG PO SCH ×2 (09:49→20:05)
[2018-12-26] MEDS: Benztropine TAB* 1 MG PO SCH ×2 (09:49→20:04)
[2018-12-26] MEDS: clonazePAM TAB(*) 1 MG PO SCH (20:03)
[2018-12-26] MEDS: risperiDONE TAB* 2 MG PO SCH (20:05)
[2018-12-27] MEDS: Lactobacillus Acidophilus* 1 TAB PO SCH (09:47)
[2018-12-27] MEDS: PARoxetine HCL TAB* 20 MG PO SCH (09:47)
[2018-12-27] MEDS: fluPHENAZine HCL TAB* 1 MG PO SCH ×2 (09:48→20:24)
[2018-12-27] MEDS: Benztropine TAB* 1 MG PO SCH ×2 (09:48→21:18)
[2018-12-27] MEDS: Multivitamins/Minerals TAB PO SCH (10:23)
--- NOTE | 2018-12-27 11:38 | PN ---
BSU: Group Therapy Note - Service Type Service Type: 46324 Group Psychotherapy - Cognitive Behavioral Group Therapy ( CBT):Patient was attentive and participatory in CBT programming this morning, and remained in good behavioral control. Patient expressed positive insights regarding relevant treatment interventions and goals.
--- NOTE | 2018-12-27 11:51 | PN ---
Subjective - Subjective Date of Service: 12/27/18 Subjective: Philly states her voices are in competition. Ricky and Varghese are the offending voices today. One of them has convinced her that she smells bad and her hygiene is poor. Her anxiety is palpably high and she does not have the insight to ask for the PRN Ativan that she has available to her. I have scheduled Klonopin to be BID with the first dose to be at 1200 today. Philly reports that the voices are negative and making her miserable with the most obvious symptom being anxiety. I phoned her brother in law Jonas at [phone]. He also recognized that she is highly anxious and hoped that she could benefit from additional time that might help reduce the denigrating tone of the voices. Objective - Appearance Appearance: Well Developed/Nourished, Obese Dysmorphic Features: No Hygiene: Normal Grooming: Well Kept - Behavior Psychomotor Activities: Normal Exhibits Abnormal Movement: No - Attitude and Relatedness Attitude and Relatedness: Psychotically Related Eye Contact: Fair - Speech Quality: Unpressured Latencies: Normal Quantity: Appropriate - Mood Patient's Decription of Mood: "Upset" - Affect Observed Affect: Tense Affect Consistent with: Dysphoria - Thought Process Patient's Thought Process: Loose Associations, Circumstantial Thought Content: Yes Paranoid Ideation, No Passive Wish, No Suicidal Planning, No Homicidal Ideation - Sensorium Experiencing Hallucinations: Yes Type of Hallucinations: Visual: No, Auditory: Yes, Command: No - Level of Consciousness Level of Consciousness: Alert Orientation: Yes Intact, Yes Orientated to Time, Yes Orientated to Place, Yes Orientated to Person - Impulse Control Impulse Control: Impaired - Insight and Judgement Insight and Judgement: Impaired - Group Participation Particating in Group Activities: Yes - Medication Management Medication Management Adherence: Yes Assessment - Assessment Merits Inpatient Hospitalization: For Immediate Safety 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 Plan - Plan Treatment Plan: Name: PHILLY ALEXANDRE Birthdate: 1960 [id number] Continued Medication Management: Continue Outpt Medication Medications: Current Medications Acetaminophen (Tylenol Tab*) 650 mg PO Q4H PRN PRN Reason: PAIN; OR TEMP > 101 Last Admin: 12/25/18 20:32 Dose: 650 mg Al Hydrox/Mg Hydrox/Simethicone (Maalox Plus*) 30 ml PO Q4H PRN PRN Reason: INDIGESTION Benztropine Mesylate (Cogentin Tab*) 0.5 mg PO BID [facility] Last Admin: 12/27/18 09:48 Dose: 0.5 mg Clonazepam (Klonopin Tab(*)) 1 mg PO BID [facility] Device (Nicotine Mouth Piece*) 1 each INH .USE W/ CARTRIDGE PRN PRN Reason: WITHDRAWAL - NICOTINE Fluphenazine HCl (Prolixin Tab*) 2 mg PO BID [facility] Last Admin: 12/27/18 09:48 Dose: 2 mg Lactobacillus Rhamnosus (Lactobacillus Acidophilus*) 1 tab PO DAILY [facility] Last Admin: 12/27/18 09:47 Dose: 1 tab Multivitamins/Minerals (Theragran/Minerals Tab*) 1 tab PO DAILY [facility] Last Admin: 12/27/18 10:23 Dose: Not Given Nicotine (Nicotine Inhaler*) 10 mg INH Q2H PRN PRN Reason: CRAVING Nicotine Polacrilex (Nicotine Gum*) 2 mg PO Q2H PRN PRN Reason: CRAVING Paroxetine HCl (Paxil Tab*) 20 mg PO DAILY [facility] Last Admin: 12/27/18 09:47 Dose: 20 mg Risperidone (Risperdal*) 2 mg PO BEDTIME [facility] Last Admin: 12/26/18 20:05 Dose: 2 mg Risperidone (Risperdal-M Tab *) 1 mg PO DAILY PRN; Protocol PRN Reason: AGITATION - Discharge Plan Discharge Plan: Outpatient Follow Up Outpatient Program: [facility] Additional Comments: Philly will have her medications continued with an increase of Klonopin 1 mg increased to BID rather than only Qbedtime.
[2018-12-27] MEDS: clonazePAM TAB(*) 1 MG PO SCH ×2 (13:13→20:24)
[2018-12-27] MEDS: Acetaminophen TAB* 325 MG PO PRN (20:23)
[2018-12-27] MEDS: risperiDONE TAB* 2 MG PO SCH (20:24)
[2018-12-28] MEDS: PARoxetine HCL TAB* 20 MG PO SCH (09:20)
[2018-12-28] MEDS: fluPHENAZine HCL TAB* 1 MG PO SCH ×2 (09:20→19:35)
[2018-12-28] MEDS: Multivitamins/Minerals TAB PO SCH (09:20)
[2018-12-28] MEDS: Lactobacillus Acidophilus* 1 TAB PO SCH (09:20)
[2018-12-28] MEDS: clonazePAM TAB(*) 1 MG PO SCH ×2 (09:21→19:36)
[2018-12-28] MEDS: Benztropine TAB* 1 MG PO SCH ×2 (09:21→21:01)
--- NOTE | 2018-12-28 15:57 | PN ---
Subjective - Subjective Date of Service: 12/28/18 Service Type: 62032 Hosp care 15 min low complexity Subjective: Yahir is anxious and concerned about her voices, her physical integrity, and her anxiety. We discuss her voices, the she might challenge them (which she does not agree to). She requests Imodium as she fears she will require it, according to one of her voices. She states the increased Klonopin yesterday and today has been helpful. Objective - Appearance Appearance: Healthy Appearing, Obese Dysmorphic Features: No Hygiene: Normal Grooming: Well Kept - Behavior Psychomotor Activities: Normal Exhibits Abnormal Movement: No - Attitude and Relatedness Attitude and Relatedness: Psychotically Related Eye Contact: Good - Speech Quality: Unpressured Latencies: Normal Quantity: Appropriate - Mood Patient's Decription of Mood: "Anxious" - Affect Observed Affect: Tense Affect Consistent with: Dysphoria - Thought Process Patient's Thought Process: Coherent, Filght of Ideas Thought Content: Yes Paranoid Ideation, No Passive Wish, No Suicidal Planning, No Homicidal Ideation - Sensorium Experiencing Hallucinations: Yes Type of Hallucinations: Visual: No, Auditory: Yes, Command: Yes - Level of Consciousness Level of Consciousness: Alert Orientation: Yes Intact, Yes Orientated to Time, Yes Orientated to Place, Yes Orientated to Person - Impulse Control Impulse Control: Tenuous - Insight and Judgement Insight and Judgement: Impaired - Group Participation Particating in Group Activities: Yes - Medication Management Medication Management Adherence: Yes Assessment - Assessment Merits Inpatient Hospitalization: For Immediate Safety, For Discharge Planning Inpatient DSM-V 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 Plan - Plan Treatment Plan: Name: YAHIR ALEXANDRE Birthdate: 1960 [id number] Continued Medication Management: Different Medication Medications: Current Medications Acetaminophen (Tylenol Tab*) 650 mg PO Q4H PRN PRN Reason: PAIN; OR TEMP > 101 Last Admin: 12/27/18 20:23 Dose: 650 mg Al Hydrox/Mg Hydrox/Simethicone (Maalox Plus*) 30 ml PO Q4H PRN PRN Reason: INDIGESTION Benztropine Mesylate (Cogentin Tab*) 0.5 mg PO BID [facility] Last Admin: 12/28/18 09:21 Dose: Not Given Clonazepam (Klonopin Tab(*)) 1 mg PO BID [facility] Last Admin: 12/28/18 09:21 Dose: 1 mg Device (Nicotine Mouth Piece*) 1 each INH .USE W/ CARTRIDGE PRN PRN Reason: WITHDRAWAL - NICOTINE Fluphenazine HCl (Prolixin Tab*) 2 mg PO BID [facility] Last Admin: 12/28/18 09:20 Dose: 2 mg Lactobacillus Rhamnosus (Lactobacillus Acidophilus*) 1 tab PO DAILY [facility] Last Admin: 12/28/18 09:20 Dose: 1 tab Loperamide HCl (Imodium Cap*) 2 mg PO Q3H PRN PRN Reason: DIARRHEA Multivitamins/Minerals (Theragran/Minerals Tab*) 1 tab PO DAILY [facility] Last Admin: 12/28/18 09:20 Dose: 1 tab Nicotine (Nicotine Inhaler*) 10 mg INH Q2H PRN PRN Reason: CRAVING Nicotine Polacrilex (Nicotine Gum*) 2 mg PO Q2H PRN PRN Reason: CRAVING Paroxetine HCl (Paxil Tab*) 40 mg PO DAILY [facility] Risperidone (Risperdal*) 2 mg PO BEDTIME [facility] Last Admin: 12/27/18 20:24 Dose: 2 mg Risperidone (Risperdal-M Tab *) 1 mg PO DAILY PRN; Protocol PRN Reason: AGITATION - Discharge Plan Discharge Plan: Outpatient Follow Up Outpatient Program: [facility] Additional Comments: 12/27/18 Yahir will have her medications continued with an increase of Klonopin 1 mg increased to BID rather than only Qbedtime. 12/28/18 We will increase Paxil to 40 mg to address anxiety.
[2018-12-28] MEDS: risperiDONE TAB* 2 MG PO SCH (19:35)
[2018-12-28] MEDS: Acetaminophen TAB* 325 MG PO PRN (19:37)
[2018-12-29] MEDS: fluPHENAZine HCL TAB* 1 MG PO SCH ×2 (08:34→20:14)
[2018-12-29] MEDS: clonazePAM TAB(*) 1 MG PO SCH ×2 (08:34→20:14)
[2018-12-29] MEDS: Lactobacillus Acidophilus* 1 TAB PO SCH (08:35)
[2018-12-29] MEDS: Multivitamins/Minerals TAB PO SCH (08:38)
[2018-12-29] MEDS: Benztropine TAB* 1 MG PO SCH ×2 (08:38→21:31)
[2018-12-29] MEDS: PARoxetine HCL TAB* 20 MG PO SCH (09:04)
--- NOTE | 2018-12-29 11:29 | PN ---
Subjective - Subjective Date of Service: 12/29/18 Service Type: [id number] Hosp care 15 min low complexity Subjective: Yahir continues to reference the voices she hears, today three of them, two men and a woman. She is encouraged to recognize that they are not real and that therefore they do not need to influence her care. She states she tries to do the opposite of what the voices tell her to do. She does not acknowledge that they are not real. The main concern with Yahir is her high anxiety. She agreed to take the increased dose of Paxil (to 40 mg) as that might have the most lasting impact on her anxiety. Objective - Appearance Appearance: Healthy Appearing, Obese Dysmorphic Features: No Hygiene: Normal Grooming: Well Kept - Behavior Psychomotor Activities: Normal Exhibits Abnormal Movement: No - Attitude and Relatedness Attitude and Relatedness: Psychotically Related Eye Contact: Fair - Speech Quality: Unpressured Latencies: Normal Quantity: Copious - Mood Patient's Decription of Mood: "Okay" - Affect Observed Affect: Tense Affect Consistent with: Dysphoria - Thought Process Patient's Thought Process: Circumstantial Thought Content: Yes Paranoid Ideation, No Passive Wish, No Suicidal Planning, No Homicidal Ideation - Sensorium Experiencing Hallucinations: Yes Type of Hallucinations: Visual: No, Auditory: Yes, Command: Yes - Level of Consciousness Level of Consciousness: Alert Orientation: Yes Intact, Yes Orientated to Time, Yes Orientated to Place, Yes Orientated to Person - Impulse Control Impulse Control: Tenuous - Insight and Judgement Insight and Judgement: Fair - Group Participation Particating in Group Activities: Yes - Medication Management Medication Management Adherence: Yes Assessment - Assessment Inpatient DSM-V 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 Plan - Plan Treatment Plan: Name: YAHIR ALEXANDRE Birthdate: 1960 [id number] Continued Medication Management: Different Medication Medications: Current Medications Acetaminophen (Tylenol Tab*) 650 mg PO Q4H PRN PRN Reason: PAIN; OR TEMP > 101 Last Admin: 12/28/18 19:37 Dose: 650 mg Al Hydrox/Mg Hydrox/Simethicone (Maalox Plus*) 30 ml PO Q4H PRN PRN Reason: INDIGESTION Benztropine Mesylate (Cogentin Tab*) 0.5 mg PO BID [facility] Last Admin: 12/29/18 08:38 Dose: Not Given Clonazepam (Klonopin Tab(*)) 1 mg PO BID [facility] Last Admin: 12/29/18 08:34 Dose: 1 mg Device (Nicotine Mouth Piece*) 1 each INH .USE W/ CARTRIDGE PRN PRN Reason: WITHDRAWAL - NICOTINE Fluphenazine HCl (Prolixin Tab*) 2 mg PO BID [facility] Last Admin: 12/29/18 08:34 Dose: 2 mg Lactobacillus Rhamnosus (Lactobacillus Acidophilus*) 1 tab PO DAILY [facility] Last Admin: 12/29/18 08:35 Dose: 1 tab Loperamide HCl (Imodium Cap*) 2 mg PO Q3H PRN PRN Reason: DIARRHEA Multivitamins/Minerals (Theragran/Minerals Tab*) 1 tab PO DAILY [facility] Last Admin: 12/29/18 08:38 Dose: Not Given Nicotine (Nicotine Inhaler*) 10 mg INH Q2H PRN PRN Reason: CRAVING Nicotine Polacrilex (Nicotine Gum*) 2 mg PO Q2H PRN PRN Reason: CRAVING Paroxetine HCl (Paxil Tab*) 40 mg PO DAILY [facility] Last Admin: 12/29/18 09:04 Dose: 40 mg Risperidone (Risperdal*) 2 mg PO BEDTIME [facility] Last Admin: 12/28/18 19:35 Dose: 2 mg Risperidone (Risperdal-M Tab *) 1 mg PO DAILY PRN; Protocol PRN Reason: AGITATION - Discharge Plan Discharge Plan: Outpatient Follow Up Outpatient Program: [facility] Additional Comments: 12/27/18 Yahir will have her medications continued with an increase of Klonopin 1 mg increased to BID rather than only Qbedtime. 12/28/18 We will increase Paxil to 40 mg to address anxiety. 12/29/18 Paxil has so far been tolerated. We look forward to a meeting with the [facility] team and family on Thursday the .
[2018-12-29] MEDS: risperiDONE TAB* 2 MG PO SCH (20:14)
[2018-12-29] MEDS: Acetaminophen TAB* 325 MG PO PRN (20:16)
[2018-12-30] MEDS: Lactobacillus Acidophilus* 1 TAB PO SCH (09:16)
[2018-12-30] MEDS: Multivitamins/Minerals TAB PO SCH (09:16)
[2018-12-30] MEDS: PARoxetine HCL TAB* 20 MG PO SCH (09:16)
[2018-12-30] MEDS: clonazePAM TAB(*) 1 MG PO SCH ×2 (09:17→20:00)
[2018-12-30] MEDS: Benztropine TAB* 1 MG PO SCH ×2 (09:18→21:17)
[2018-12-30] MEDS: fluPHENAZine HCL TAB* 1 MG PO SCH ×2 (09:18→20:00)
[2018-12-30] MEDS: Loperamide CAP* 2 MG PO PRN ×2 (10:14→21:09)
--- NOTE | 2018-12-30 10:41 | PN ---
Subjective - Subjective Date of Service: 12/30/18 Service Type: [id number] Hosp care 15 min low complexity Subjective: Yahir continues to hear and listen to the voices in her head and respond to events that occurred in the past, such as a woman named Divya getting angry with her and broadcasting her thoughts to give Yahir diarrhea. In addition, Yahir requested that I be the messenger between her and Dr. Frank becauses her brother in law prefers Dr. Frank (?). I did stop Yahir and indicate that I was not going to relay messages and challenged her delusion about the voice named Divya having power to broadcast physical illnesses into Yahir. Objective - Appearance Appearance: Healthy Appearing, Obese Dysmorphic Features: No Hygiene: Normal Grooming: Disheveled - Behavior Psychomotor Activities: Normal Exhibits Abnormal Movement: Yes - Attitude and Relatedness Attitude and Relatedness: Needy Eye Contact: Fair - Speech Quality: Unpressured Latencies: Short Quantity: Appropriate - Mood Patient's Decription of Mood: "Upset" - Affect Observed Affect: Tense Affect Consistent with: Dysphoria - Thought Process Patient's Thought Process: Coherent, Filght of Ideas Thought Content: Yes Paranoid Ideation, No Passive Wish, No Suicidal Planning, No Homicidal Ideation - Sensorium Experiencing Hallucinations: Yes Type of Hallucinations: Visual: No, Auditory: Yes, Command: Yes - Level of Consciousness Level of Consciousness: Alert Orientation: Yes Intact, Yes Orientated to Time, Yes Orientated to Place, Yes Orientated to Person - Impulse Control Impulse Control: Intact - Insight and Judgement Insight and Judgement: Poor - Group Participation Particating in Group Activities: Yes - Medication Management Medication Management Adherence: Partial Assessment - Assessment Merits Inpatient Hospitalization: For Immediate Safety, For Discharge Planning Inpatient DSM-V 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 Plan - Plan Treatment Plan: Name: YAHIR ALEXANDRE Birthdate: 1960 [id number] Continued Medication Management: Start Medication Medications: Current Medications Acetaminophen (Tylenol Tab*) 650 mg PO Q4H PRN PRN Reason: PAIN; OR TEMP > 101 Last Admin: 12/29/18 20:16 Dose: 650 mg Al Hydrox/Mg Hydrox/Simethicone (Maalox Plus*) 30 ml PO Q4H PRN PRN Reason: INDIGESTION Benztropine Mesylate (Cogentin Tab*) 0.5 mg PO BID [facility] Last Admin: 12/30/18 09:18 Dose: Not Given Clonazepam (Klonopin Tab(*)) 1 mg PO BID [facility] Last Admin: 12/30/18 09:17 Dose: 1 mg Device (Nicotine Mouth Piece*) 1 each INH .USE W/ CARTRIDGE PRN PRN Reason: WITHDRAWAL - NICOTINE Fluphenazine HCl (Prolixin Tab*) 2 mg PO BID [facility] Last Admin: 12/30/18 09:18 Dose: Not Given Lactobacillus Rhamnosus (Lactobacillus Acidophilus*) 1 tab PO DAILY [facility] Last Admin: 12/30/18 09:16 Dose: 1 tab Loperamide HCl (Imodium Cap*) 2 mg PO Q3H PRN PRN Reason: DIARRHEA Last Admin: 12/30/18 10:14 Dose: 2 mg Multivitamins/Minerals (Theragran/Minerals Tab*) 1 tab PO DAILY [facility] Last Admin: 12/30/18 09:16 Dose: 1 tab Nicotine (Nicotine Inhaler*) 10 mg INH Q2H PRN PRN Reason: CRAVING Nicotine Polacrilex (Nicotine Gum*) 2 mg PO Q2H PRN PRN Reason: CRAVING Paroxetine HCl (Paxil Tab*) 40 mg PO DAILY [facility] Last Admin: 12/30/18 09:16 Dose: 40 mg Risperidone (Risperdal*) 2 mg PO BEDTIME [facility] Last Admin: 12/29/18 20:14 Dose: 2 mg Risperidone (Risperdal-M Tab *) 1 mg PO DAILY PRN; Protocol PRN Reason: AGITATION - Discharge Plan Discharge Plan: Outpatient Follow Up Outpatient Program: [facility] team Additional Comments: 12/27/18 Yahir will have her medications continued with an increase of Klonopin 1 mg increased to BID rather than only Qbedtime. 12/28/18 We will increase Paxil to 40 mg to address anxiety. 12/29/18 Paxil has so far been tolerated. We look forward to a meeting with the [facility] team and family on Thursday the . 12/30/18 The meeting with the [facility] team will take place Thursday. Yahir will be discharged following that. Continuing to challenge her delusions is also in the plan.
[2018-12-30] MEDS: risperiDONE TAB* 2 MG PO SCH (20:00)
[2018-12-31] MEDS: Multivitamins/Minerals TAB PO SCH (09:05)
[2018-12-31] MEDS: Benztropine TAB* 1 MG PO SCH (09:05)
[2018-12-31] MEDS: fluPHENAZine HCL TAB* 1 MG PO SCH (09:06)
[2018-12-31] MEDS: Lactobacillus Acidophilus* 1 TAB PO SCH (09:06)
[2018-12-31] MEDS: PARoxetine HCL TAB* 20 MG PO SCH (09:06)
[2018-12-31] MEDS: clonazePAM TAB(*) 1 MG PO SCH (09:06)
[2018-12-31 10:15] VITALS: BP 128/76
--- NOTE | 2018-12-31 11:16 | PN ---
BSU: Group Therapy Note - Service Type Service Type: [id number] Group Psychotherapy - Cognitive Behavioral Group Therapy ( CBT):Patient was attentive and participatory in CBT programming this morning, and remained in good behavioral control. Patient expressed positive insights regarding relevant treatment interventions and goals.
--- NOTE | 2018-12-31 15:48 | DS ---
CC: ACT Team * DISCHARGE SUMMARY: DATE OF ADMISSION: 12/23/18 DATE OF DISCHARGE: 12/31/18 PROVIDER: Fabi Ryan NP, in Psychiatry. SUPERVISING PHYSICIAN: Dr. Cedric Frank.* (DICTATED BY FABI RYAN NP ) DIAGNOSIS: Schizophrenia. CONDITION AT THE TIME OF DISCHARGE: Improved, psychiatrically cleared, stable. Participated in groups and was social with peers. Her family who came to a family meeting along with the ACT team were agreeable to discharge. She has done well here psychiatrically. She tolerated an increase in Paxil. She will be following up with the ACT team. MENTAL STATUS EXAMINATION: At the time of discharge, Philly is calm, cooperative , and makes fair eye contact. She is alert and oriented x3. Her grooming is fair. Her speech pace is slow. Her thought processes are generally logical. She remains psychotic and delusional, but she denies AH, VH, SI, and HI. Her insight is fair. Her judgment is fair to poor. She is willing to follow up and she is urged to continue doing the therapy she is doing with the ACT team. DISCHARGE INSTRUCTIONS TO THE PATIENT: A. Medications: 1. Cogentin 0.5 mg b.i.d. 2. Klonopin 1 mg b.i.d. 3. Prolixin 2 mg b.i.d. 4. Lactobacillus rhamnosus 1 tab p.o. daily. 5. Paxil 40 mg daily. 6. Risperdal 2 mg at bedtime. B. Diet is regular. C. Activities: As tolerated. Philly is a nonsmoker. There are no studies pending at the time of discharge. D. Followup care: She has appointments with the ACT team on Thursday. She will be following up with them at that time. She is also going to be closely connected to her [id number], Jonas, and her sister Elissa as well as other family members. E. Substance abuse followup is not indicated. HOSPITAL COURSE: Part A: Chief complaint: "I feel hopeless and helpless and my frontal lobe is all messed up." The patient is a 58-year-old single white female with a history of schizophrenia , who arrived here on a voluntary status hours after being discharged from this unit with the understanding that she would take care of herself in the outpatient setting. When she was seen this morning at 12/24/18, she is confused and talks about some bizarre delusions that include this sql report writer and something called phonetel that is listening to her apparently. She states "I feel like I'm in the darkness." She misses her friend, Leonie Pierce in [place]. Clearly not much has changed since the time she was discharged to the time she came back to the hospital, but it should be noted that on her discharge she was more organized and pleasant, and now she is significantly disorganized and bizarre, although she is still pleasant and wanting to have "good behavior." Part B: Psychiatric treatment was rendered. Philly was admitted to the adult behavioral unit and placed on 15-minute checks for safety. Philly did well in the unit as evidenced by going to groups and interacting with peers well. She tolerated the increase of Paxil to 40, which was done to acknowledge the high anxiety she feels. It is considered poor practice to have someone on high doses of Klonopin, so we tried to avoid that by using Paxil instead. Philly is on 2 anti- psychotics. It should be noted that her hemoglobin A1c was 5.2% on 11/24/18. Also her triglycerides on the same day were 102, cholesterol was 152 , LDL cholesterol was 91, HDL cholesterol was 40.6. Philly' TSH on 12/23/18, was 1.46. Philly is on multiple antipsychotics and this is acknowledged to be unusual practice. It is done following many-many trials including multiple antipsychotics until eventually she was found to be somewhat stable on Risperdal and perphenazine. We did have a family meeting with her brother-in- law Jonas, her sister Elissa on the phone, Asher and Julia from the ACT team, Carisa Calle, BETY and myself for approximately half an hour. In this time, it was impressed upon Philly that she needed to either challenge or ignore the voices that she was thinking were real in her head. She states with some insight that the voices sound very real to her and that they make her feel like she must do what they tell her to do. The insight comes in where she is beginning to listen to the ACT team and to her [id number] when they say that this person named Fozia, who was a voice in her head is not a real person. No consults were entered for Philly. She is improved in the sense that she is not as frantic and upset and scared. She remains psychotic, however, and is delusional. These are expectations for Philly. It needs to be noted that she is improved and severity of symptoms is lowered. FABI RYAN, PAUL [id number]/[facility] #: [id number] MENDEZ
== END 2018-12-31 11:15 | disposition home or self-care (01) | DRG 885 ==
LOC: ED 17:00 → BSU 21:40
PROVIDERS: ADMIT Psychiatry & Neurology Psychiatry; ATTEND Psychiatry & Neurology Psychiatry
DX: F20.9 Schizophrenia, unspecified (principal); G47.30 Sleep apnea, unspecified; E11.9 Type 2 diabetes mellitus without complications; R32 Unspecified urinary incontinence; Z81.1 Family history of alcohol abuse and dependence; Z81.3 Family history of other psychoactive substance abuse and dependence
CPT/HCPCS: 36415; 80053; 80320; 80329; 84443; 85025; 90853; 99222; 99231; 99232; 99238; 99284; A9270-GY; G0480

== ENCOUNTER 2019-01-12 20:52 | Emergency (ER) | payer MEDICARE ==
--- NOTE | 2019-01-12 21:01 | ED ---
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 Patients speech is stilted. She says she "cannot identify how to proceed in life... shes mixed up my brain. The voices are making her fearful and counter-acting everything she does. The voices tell her to hurt herself, but not others. Denies visual hallucinations. She takes medications Prolixin, Klonopin, Paxil. The Prolixin is a recent addition. She says shes medication compliant. - History Of Current Complaint Chief Complaint: EDMentalHealth Time Seen by Provider: 01/12/19 20:57 Hx Obtained From: Patient Onset/Duration: Still Present Timing: Constant Severity Initially: Moderate Severity Currently: Moderate Character: Fearful Associated Signs And Symptoms: Positive: Hallucinating - pos: auditory. neg: visual. Related History: Positive For: Prior Psychiatric Issues Has Suicidal: Reports: Thoughts Has Homicidal: Denies: Thoughts - Allergies/Home Medications Allergies/Adverse Reactions: Allergies Allergy/AdvReac Type Severity Reaction Status Date / Time ampicillin Allergy Swelling Verified 10/31/18 19:24 Home Medications: Home Medications fluPHENAZine HCL TAB* [Prolixin TAB*] 1 mg PO BID 01/13/19 [History Confirmed ] PMH/Surg Hx/FS Hx/Imm Hx Previously Healthy: No Endocrine/Hematology History: Denies: Hx Anticoagulant Therapy Cardiovascular History: Reports: Other Cardiovascular Problems/Disorders - arrhythmia Denies: Hx Myocardial Infarction Respiratory History: Reports: Hx Sleep Apnea History: Reports: Other Problems/Disorders - incontinence Denies: Hx Dialysis Musculoskeletal History: Reports: Hx Arthritis Sensory History: Reports: Hx Contacts or Glasses Denies: Hx Hearing Aid Opthamlomology History: Reports: Hx Contacts or Glasses Neurological History: Denies: Hx Dementia, Hx Headaches, Hx Migraine Psychiatric History: Reports: Hx Anxiety, Hx Depression, Hx Panic Disorder, Hx Inpatient Treatment, Hx Community Mental Health Tx, Hx Schizophrenia, Hx Suicide Attempt, Other Psychiatric Issues/Disorders - Schizoaffective disorder Denies: Hx Eating Disorder, Hx of Violent Episodes Against Others - Cancer History Hx Chemotherapy: No Hx Radiation Therapy: No - Surgical History Surgery Procedure, Year, and Place: None - Immunization History Date of Tetanus Vaccine: UTD Date of Influenza Vaccine: UTD - Family History Known Family History: Positive: Other - Depression Negative: Cardiac Disease, Diabetes - Social History 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 neg: visual hallucinations, HI. All Other Systems Reviewed And Are Negative: Yes Physical Exam - Summary Physical Exam Summary: Appearance: Well-appearing, Well-nourished, lying in bed comfortable Skin: Warm, dry, no obvious rash Eyes: sclera anicteric, no conjunctival pallor ENT: mucous membranes moist Neck: deferred Respiratory: No signs of respiratory distress Cardiovascular: Appears well perfused, pulses are nml Abdomen: deferred Musculoskeletal: Moving all 4 extremities without obvious discomfort Neurological: Awake and alert, mentation is normal, speech is fluent and appropriate Psychiatric: affect is blunted, does not appear anxious or depressed Triage Information Reviewed: Yes Vital Signs Reviewed: Yes Diagnostics - Laboratory Result Diagrams: 01/12/19 21:20 01/12/19 21:20 Lab Statement: Any lab studies that have been ordered have been reviewed, and results considered in the medical decision making process. Course/Dx - Course Assessment/Plan: Pt is a 58 y/o F presenting with auditory hallucinations. Patient's affect is blunted. She says she "cannot identify how to proceed in life... shes mixed up my brain. The voices are making her fearful, telling her to hurt herself, but not others. Denies visual hallucinations. She takes medications Klonopin, Paxil, and recently added Prolixin. Lab work is unremarkable. Pt is medically clear for [facility] at 2157. At 0117, per incendiaries supervisor : Pt will be transferred per Dr. Geiger, psych. Dx: schizophrenia. Pt will be signed out to Dr. Mitchell at shift change pending transfer to an accepting facility. - Differential Dx/Clinical Impression Provider Diagnosis: Acute exacerbation of chronic schizophrenia Discharge - Sign-Out/Discharge Documenting (check all that apply): Sign-Out Patient Signing out patient TO: Nicole Mitchell - pending trans Patient Received Moderate/Deep Sedation with Procedure: No - Discharge Plan Condition: Stable Disposition: HOME Referrals: Asher Interiano MD [Primary Care Provider] - - Billing Disposition and Condition Condition: STABLE Disposition: Home - Attestation Statements Document Initiated by Xin: Yes Documenting Scribe: Brandyn Swift Provider For Whom Xin is Documenting (Include Credential): Dr. Avel Phelps MD Scribe Attestation: Brandyn Taylor scribed for Dr. Avel Phelps MD on 01/13/19 at 1830. Scribe Documentation Reviewed: Yes Provider Attestation: The documentation as recorded by the Brandyn taylor accurately reflects the service I personally performed and the decisions made by me, Dr. Avel Phelps MD Status of Scribe Document: Viewed
[2019-01-12] MEDS ORDERED: Nicotine Inhaler* 10 MG AMP INH PRN (21:02)
[2019-01-12] MEDS ORDERED: Mouth Piece, Nicotine* 1 EACH CARTRIDGE INH PRN (21:23)
[2019-01-12 21:27] LABS: ABS Basophils 0 10^3/ul (0-0.2); ABS Eosinophils 0.1 10^3/ul (0-0.6); ABS Lymphocytes 1.9 10^3/ul (1.0-4.8); ABS Monocytes 0.5 10^3/ul (0-0.8); ABS Neutrophils 8.3 10^3/ul (1.5-7.7); ABS Nucleated RBC 0 10^3/ul; Eosinophil % 0.7 %; Hematocrit 40 % (33-41); Hemoglobin 13.2 g/dL (12.0-16.0); Lymphocyte % 17.4 %; Mean Corpuscular HGB Conc 33 g/dL (31-36); Mean Corpuscular Hemoglobin 28 pg (27-31); Mean Corpuscular Volume 86 fL (80-97); Mean Platelet Volume 9.4 fL (7.4-10.4); Nucleated Red Blood Cells % 0; Platelet Count 206 10^3/uL (150-450); Red Blood Count 4.71 10^6 /uL (3.70-4.87); Red Cell Distribution Width 14 % (10.5-15); White Blood Count 10.8 10^3/uL (3.5-10.8)
[2019-01-12 21:43] LABS: ALT 17 U/L (7-52); AST 18 U/L (13-39); Albumin 3.9 g/dL (3.2-5.2); Albumin/Globulin Ratio 1.4 (1-3); Alkaline Phosphatase 78 U/L (34-104); Anion Gap 9 mmol/L (2-11); BUN/Creatinine Ratio 14.1 (8-20); Blood Urea Nitrogen 10 mg/dL (6-24); CO2 Carbon Dioxide 25 mmol/L (22-32); Calcium 9.3 mg/dL (8.6-10.3); Chloride 107 mmol/L (101-111); EGFR African American 102.7 (>60); EGFR Non-African American 84.8 (>60); Globulin 2.8 g/dL (2-4); Glucose 110 mg/dL (70-100); Potassium 3.6 mmol/L (3.5-5.0); Sodium 141 mmol/L (135-145); Total Protein 6.7 g/dL (6.4-8.9)
[2019-01-12 22:01] LABS: Acetaminophen < 15 mcg/mL; Alcohol < 10 mg/dL (<10); Salicylate < 2.50 mg/dL (<30)
[2019-01-12 22:16] LABS: TSH (Thyroid Stimulating Horm) 1.25 mcIU/mL (0.34-5.60)
--- NOTE | 2019-01-13 08:08 | ED ---
Progress - Progress Note Progress Note: Pt is a signout from Dr. Phelps pending transfer to accepting psychiatric facility. Pt spent the overnight in the ED, and then was re-evaluated by Dr. Arroyo on 01/13/19, just before 11am. Dr. Arroyo knows the patient and her history. Per David RN, she spoke to Dr. Arroyo about the pts present condition. Her baseline includes hallucinations, and she may not benefit from being admitted [place] [facility]. So instead of being transferred to another facility, pt will be discharge to home. The ACT team will see her today, and she will be receiving injectable prolixin. She also spoke with the pts siter, Elissa, who sees her daily. Elissa thought the pts voices were coming earlier in the day, and she was a bit aggressive yesterday with her . She had some concerns about her going home but was agreeable. The pt states she hears voices of a woman telling me how to act around my family and teasing me, and that The voices don t tell me to do anything. They just make fun of me. She confirms feeling safe with the plan of discharge, and reports that she gets short of breath with fear , but she is not fearful presently. She denies cp, burning, dysuria, nausea, vomiting, sob, or dizziness. Nurses notes reviewed, previous physicians notes reviewed. Pts medications reviewed this visit, allergies noted. The pt will be discharged with a dx of acute exacerbation of chronic schizophrenia. PE: HEENT: NC/AT. Conjunctiva clear. EOMI. Pupils 2mm. Pharynx clear Neck: supple, no JVD Cor S1 S2 Lungs clear, no respiratory distress Abd: soft, nontender. Extrem: no C,C,E Neuro: speech clear and fluent. Facial symmetry. Moves all extremities well. No focal deficit. Psychological: calm, cooperative, denies SI/HI. Admits auditory hallucinations , but they are not commanding. - Results/Orders Results/Orders: EKG at 0836 NSR 74bpm, nonspecific ST changes, no ectopy. Incomplete tracing due to V6 absence. Besides V6, no acute change from 11/23/18. - Consult/PCP Time Called: 23:00 Course/Dx - Course Course Of Treatment: Initial disposition prior to 01/13/19 0700 was to transfer pt to another facility. Dr. Arroyo re-evaluated pt just before 11:00am on 01/13/19 , and determined pt is a safe discharge to home. Per David RN, she spoke to Dr. Arroyo about the pts present condition. Her baseline includes hallucinations , and she may not benefit from being admitted to [facility]. The ACT team will see her today, and she will be receiving injectable prolixin. She also spoke with the pt s siter, Elissa, who sees her daily. Elissa thought the pts voices were coming earlier in the day, and she was a bit aggressive yesterday with her . She had some concerns about her going home but was agreeable. The pt states she hears voices of a woman telling me how to act around my family and teasing me, and that the voices dont tell me to do anything they just make fun of me. She confirms feeling safe with the plan of discharge, and reports that she gets short of breath with fear, but she is not fearful presently. She denies cp, burning, dysuria, nausea, vomiting, sob, or dizziness. Pt denies SI/HI. Nurses notes reviewed, previous physicians notes reviewed. Pts medications reviewed this visit, allergies noted. EKG at 0836 shows NSR 74bpm, nonspecific ST changes , no ectopy. Incomplete tracing due to V6 absence. Besides V6, no acute change from 11/23/18. The pt will be discharged with a dx of acute exacerbation of chronic schizophrenia. - Diagnoses Provider Diagnoses: Acute exacerbation of chronic schizophrenia Discharge - Sign-Out/Discharge Documenting (check all that apply): Patient Departure, Receiving Sign-Out Receiving patient FROM: [facility] - 01/13/19 0700 Patient Received Moderate/Deep Sedation with Procedure: No - Discharge Plan Condition: Stable Disposition: HOME Referrals: Asher Interiano MD [Primary Care Provider] - - Billing Disposition and Condition Condition: STABLE Disposition: Home - Attestation Statements Document Initiated by Scribe: Yes Documenting Scribe: Margarita Rooney Provider For Whom Xin is Documenting (Include Credential): Dr. Nicole Mitchell MD. Scribe Attestation: Margarita Taylor, scribed for Dr. Nicole Mitchell MD. on 01/15/19 at 2148. Scribe Documentation Reviewed: Yes Provider Attestation: The documentation as recorded by the humbertoibe, Margarita Rooney accurately reflects the service I personally performed and the decisions made by me, Dr. Nicole Mitchell MD. Status of Scribe Document: Viewed
[2019-01-13] MEDS ORDERED: PARoxetine HCL TAB* 40 MG PO ONE (11:19)
[2019-01-13] MEDS ORDERED: fluPHENAZine HCL TAB* 1 MG PO ONE (11:19)
--- NOTE | 2019-01-13 11:22 | PN ---
ED Flex Patient Progress Note Date of Service: 01/12/19 Subjective: This is a 58 year-old F who is pending admission to [facility] / transfer to another psychiatric facility / discharge to home / or being observed secondary to hallucinations. Pt. examined in room 10 around 1050. She is resting comfortably without complaints. Objective: Vitals: Most recent vital signs documented below. General NAD, Alert and oriented x3. Laboratory: Current laboratory results documented below. Assessment: Hallucinations. Plan: Pending dc home. Morning medications ordered prior to dc. Vital Signs Temp Pulse Resp BP Pulse Ox 97.7 F 70 20 176/94 95 01/13/19 04:56 01/13/19 04:56 01/13/19 04:56 01/13/19 04:56 01/13/19 04:56 Lab Results - Entire Visit 01/12/19 01/12/19 21:20 21:20 WBC 10.8 RBC 4.71 Hgb 13.2 Hct 40 MCV 86 MCH 28 MCHC 33 RDW 14 Plt Count 206 MPV 9.4 Neut % (Auto) 76.5 Lymph % (Auto) 17.4 Carver % (Auto) 5.0 Eos % (Auto) 0.7 Baso % (Auto) 0.4 Absolute Neuts (auto) 8.3 H Absolute Lymphs (auto) 1.9 Absolute Monos (auto) 0.5 Absolute Eos (auto) 0.1 Absolute Basos (auto) 0 Absolute Nucleated RBC 0 Nucleated RBC % 0 Sodium 141 Potassium 3.6 Chloride 107 Carbon Dioxide 25 Anion Gap 9 BUN 10 Creatinine 0.71 Est GFR ( Amer) 102.7 Est GFR (Non-Af Amer) 84.8 BUN/Creatinine Ratio 14.1 Glucose 110 H Calcium 9.3 Total Bilirubin 0.40 AST 18 ALT 17 Alkaline Phosphatase 78 Total Protein 6.7 Albumin 3.9 Globulin 2.8 Albumin/Globulin Ratio 1.4 TSH 1.25 Salicylates < 2.50 Acetaminophen < 15 Serum Alcohol < 10
--- NOTE | 2019-01-13 11:33 | PN ---
ED Flex Patient Progress Note Date of Service: 01/13/19 Subjective: This is a 58 year-old F who was seen and evaluated in the emergency department. I am familiar with this patients psychiatric history. She desires social and family contact and becomes stressed when people are not around and said that she comes to the hospital whenever she gets stressed. She came to the hospital after she went to her neighbors and told them she was hearing voices and the neighbor called a ambulance. She has a appointment with the ACT team today. She is currently on a waiting list for supportive housing that would provide more social contact. Patient reported that she was hearing voices ( which has been chronic and ongoing for several months), and that the voices were arguing with Divya and Phonetel. She denied suicidal ideation intent or plan. She denied homicidal ideation intent or plan. She reported that she sometimes gets the urge to hit doctors and nurses but said that she can control her impulses and would not act on them. She said that having people around helps with her voices. She has been following up with the act team. Patient denied access to firearms or stocks piles of medications. Patient reported that she has been taking her medications at home. She is looking forward to seeing her sister. She denied people out to get her or to harm her. She denied recent alcohol and or substance abuse. Objective: See ED note for Physical Exam APPEARANCE : 58 year old who appears stated age. Patient is not malodourous, and appears to have fair hygiene and grooming. BEHAVIOR: Cooperative , calm EYE CONTACT: Fair PSYCHOMOTOR ACTIVITY: No psychomotor agitation or retardation. MOVEMENTS: No abnormal movements observed. SPEECH : Normal rate, rhythm, volume and tone. MOOD : " alright" AFFECT : constricted THOUGHT PROCESS: formulated and organized in a logical, linear goal directed manner. THOUGHT CONTENT: no preoccupations PERCEPTION: No current visual hallucinations. Doesnt appear to be responding to internal cues. Reports auditory hallucinations non commanding type SUICIDALITY Denied suicidal ideation, intent or plan. HOMICIDALITY Denied homicidal ideation, intent or plan. Insight/judgment: Fair insight and judgment ORIENTATION: Oriented to self, location, and time. Assessment: 58 year old single female with history of schizophrenia and multiple hospitalizations Plan: -Patient doesnt meet criteria for inpatient psychiatric hospitalization at this time and has a follow up appointment with the ACT team today. Patient is in agreement with the plan to follow up with the ACT team and wait for supportive housing options to become available. -Collateral from family and ACT team was obtained no evidence indicating that she is a danger to herself and or others. - Patient has been hospitalized multiple times in the last 2 months and has failed to show benefit from inpatient hospitalization and is currently not a danger to herself and or others. She has the support of her family and the ACT team. -Risk factors: Single, history of mental illness, prior suicide attempts Protective factors: Has strong support system. No history of service , currently no feelings of hopelessness, doesnt have multiple medical conditions, no family history of suicide, doesnt have access to firearms. No history of substance abuse. No history of alcohol abuse. No recent changes in relationship status, housing, job, etc.. Currently future orientated. Patient engaged in treatment and compliant with medication. Vital Signs Temp Pulse Resp BP Pulse Ox 97.7 F 70 20 176/94 95 01/13/19 04:56 01/13/19 04:56 01/13/19 04:56 01/13/19 04:56 01/13/19 04:56 Lab Results - Entire Visit 01/12/19 01/12/19 21:20 21:20 WBC 10.8 RBC 4.71 Hgb 13.2 Hct 40 MCV 86 MCH 28 MCHC 33 RDW 14 Plt Count 206 MPV 9.4 Neut % (Auto) 76.5 Lymph % (Auto) 17.4 [place] % (Auto) 5.0 Eos % (Auto) 0.7 Baso % (Auto) 0.4 Absolute Neuts (auto) 8.3 H Absolute Lymphs (auto) 1.9 Absolute Monos (auto) 0.5 Absolute Eos (auto) 0.1 Absolute Basos (auto) 0 Absolute Nucleated RBC 0 Nucleated RBC % 0 Sodium 141 Potassium 3.6 Chloride 107 Carbon Dioxide 25 Anion Gap 9 BUN 10 Creatinine 0.71 Est GFR ( Amer) 102.7 Est GFR (Non-Af Amer) 84.8 BUN/Creatinine Ratio 14.1 Glucose 110 H Calcium 9.3 Total Bilirubin 0.40 AST 18 ALT 17 Alkaline Phosphatase 78 Total Protein 6.7 Albumin 3.9 Globulin 2.8 Albumin/Globulin Ratio 1.4 TSH 1.25 Salicylates < 2.50 Acetaminophen < 15 Serum Alcohol < 10
[2019-01-13 11:55] VITALS: BP 170/100
== END 2019-01-13 11:53 | disposition home or self-care (01) ==
LOC: ED 20:52
DX: F20.89 Other schizophrenia (principal); F41.0 Panic disorder [episodic paroxysmal anxiety]; F32.9 Major depressive disorder, single episode, unspecified; Z88.0 Allergy status to penicillin; Z87.891 Personal history of nicotine dependence
CPT/HCPCS: 36415; 80053; 80320; 80329; 84443; 85025; 93005; 99285; A9270-GY; G0480

== ENCOUNTER 2019-01-17 21:38 | Emergency (ER) | payer MEDICARE ==
--- NOTE | 2019-01-17 22:58 | ED ---
Psychiatric Complaint - HPI Summary HPI Summary: The pt is a 58 y/o F presenting to the ED brought in by EMS for hearing voices. She states they tell her how to eat, drink, and sleep, as well as tease her about her life, friends, and family. She has been hearing these voices for three years, but tonight they were so loud that she could not get to sleep. She lives alone and called EMS herself. She denies shortness of breath. - History Of Current Complaint Chief Complaint: EDMentalHealth Time Seen by Provider: 01/17/19 22:42 Hx Obtained From: Patient Onset/Duration: Gradual Onset, Still Present, Other - lasting years Timing: Constant Severity Initially: Moderate Severity Currently: Moderate Character: Anxious Aggravating Factor(s): Nothing Alleviating Factor(s): Nothing Associated Signs And Symptoms: Positive: Hallucinating - auditory Related History: Positive For: Prior Psychiatric Issues Has Suicidal: Denies: Thoughts Has Homicidal: Denies: Thoughts - Allergies/Home Medications Allergies/Adverse Reactions: Allergies Allergy/AdvReac Type Severity Reaction Status Date / Time ampicillin Allergy Swelling Verified 01/17/19 22:59 benztropine [From Cogentin] Allergy Diarrhea Verified 01/17/19 22:59 PMH/Surg Hx/FS Hx/Imm Hx Previously Healthy: No Endocrine/Hematology History: Denies: Hx Anticoagulant Therapy Cardiovascular History: Reports: Other Cardiovascular Problems/Disorders - arrhythmia Denies: Hx Myocardial Infarction Respiratory History: Reports: Hx Sleep Apnea History: Reports: Other Problems/Disorders - incontinence Denies: Hx Dialysis Musculoskeletal History: Reports: Hx Arthritis Sensory History: Reports: Hx Contacts or Glasses Denies: Hx Hearing Aid Opthamlomology History: Reports: Hx Contacts or Glasses Neurological History: Denies: Hx Dementia, Hx Headaches, Hx Migraine Psychiatric History: Reports: Hx Anxiety, Hx Depression, Hx Panic Disorder, Hx Inpatient Treatment, Hx Community Mental Health Tx, Hx Schizophrenia, Hx Suicide Attempt, Other Psychiatric Issues/Disorders - Schizoaffective disorder Denies: Hx Eating Disorder, Hx of Violent Episodes Against Others - Cancer History Hx Chemotherapy: No Hx Radiation Therapy: No - Surgical History Surgery Procedure, Year, and Place: None - Immunization History Date of Tetanus Vaccine: unk Date of Influenza Vaccine: unk Infectious Disease History: No Infectious Disease History: Denies: Traveled Outside the [place] in Last 30 Days - Family History Known Family History: Positive: Other - Depression Negative: Cardiac Disease, Diabetes - Social History Alcohol Use: Occasionally Alcohol Amount: states "once every other day" Hx Substance Use: No Substance Use Type: Reports: None Hx Tobacco Use: Yes Smoking Status (MU): Former Smoker Type: Cigarettes Amount Used/How Often: pt has used no tobacco products in last 30days Review of Systems Negative: Shortness Of Breath Positive: Other - auditory hallucinations All Other Systems Reviewed And Are Negative: Yes Physical Exam - Summary Physical Exam Summary: VITAL SIGNS: Reviewed. GENERAL: Patient is a well-developed and nourished female who is lying comfortable in the stretcher. Patient is not in any acute respiratory distress. HEAD AND FACE: No signs of trauma. No ecchymosis, hematomas or skull depressions. No sinus tenderness. EYES: PERRLA, EOMI x 2, No injected conjunctiva, no nystagmus. EARS: Hearing grossly intact. Ear canals and tympanic membranes are within normal limits. MOUTH: Oropharynx within normal limits. NECK: Supple, trachea is midline, no adenopathy, no JVD, no carotid bruit, no c- spine tenderness, neck with full ROM. CHEST: Symmetric, no tenderness at palpation LUNGS: Clear to auscultation bilaterally. No wheezing or crackles. CVS: Regular rate and rhythm, S1 and S2 present, no murmurs or gallops appreciated. ABDOMEN: Soft, non-tender. No signs of distention. No rebound no guarding, and no masses palpated. Bowel sounds are normal. EXTREMITIES: FROM in all major joints, no edema, no cyanosis or clubbing. NEURO: Alert and oriented x 3. No acute neurological deficits. Speech is normal and follows commands. SKIN: Dry and warm Triage Information Reviewed: Yes Vital Signs On Initial Exam: Initial Vitals Temp Pulse Resp BP Pulse Ox 97.5 F 74 16 153/89 93 01/17/19 21:39 01/17/19 21:39 01/17/19 21:39 01/17/19 21:39 01/17/19 21:39 Vital Signs Reviewed: Yes Diagnostics - Vital Signs Vital Signs Temp Pulse Resp BP Pulse Ox 01/17/19 21:39 97.5 F 74 16 153/89 93 - Laboratory Result Diagrams: 01/17/19 23:06 01/17/19 23:06 Lab Statement: Any lab studies that have been ordered have been reviewed, and results considered in the medical decision making process. Re-Evaluation - Re-Evaluation 1st re-eval Re-Evaluation Time: 01:52 Change: Unchanged Comment: Dr. Geiger would like to keep the pt on a mental health hold due to the fact that the pt called the ACT team and told them that she overdosed. Course/Dx - Course Course Of Treatment: The pt is a 58 y/o F presenting to the ED brought in by EMS for hearing voices. She states they tell her how to eat, drink, and sleep, as well as tease her about her life, friends, and family. She has been hearing these voices for three years, but tonight they were so loud that she could not get to sleep. As of 151, Dr. Geiger would like to keep the patient on a mental health hold due to the fact that the pt called the ACT team and told them that she overdosed. The pt will be signed out to Dr. Pantoja on shift change pending disposition. - Differential Dx/Clinical Impression Provider Diagnosis: Schizophrenia Discharge - Sign-Out/Discharge Documenting (check all that apply): Sign-Out Patient Signing out patient TO: Jorge Pantoja - Discharge Plan Condition: Stable Referrals: Asher Interiano MD [Primary Care Provider] - - Attestation Statements Document Initiated by Scribe: Yes Documenting Scribe: Margarita Rooney Provider For Whom Lizetteibe is Documenting (Include Credential): Leisa Julien MD. Scribe Attestation: IMargarita, scribed for Leisa Julien MD. on 01/18/19 at 0615. Status of Scribe Document: Ready
[2019-01-17 23:07] LABS: Urine Appearance Cloudy; Urine Bacteria 1+ (Absent); Urine Bilirubin Negative (Negative); Urine Blood Negative (Negative); Urine Color Yellow; Urine Glucose Negative (Negative); Urine Ketones Trace (Negative); Urine Nitrite Positive (Negative); Urine Protein Negative (Negative); Urine Red Blood Cell Absent (Absent); Urine Specific Gravity 1.023 (1.010-1.030); Urine Squamous Epithelial Cell Present (Absent); Urine Urobilinogen Negative (Negative); Urine White Blood Cell 3+(>20/hpf) (Absent)
[2019-01-17 23:11] LABS: ABS Basophils 0 10^3/ul (0-0.2); ABS Eosinophils 0.1 10^3/ul (0-0.6); ABS Lymphocytes 2.1 10^3/ul (1.0-4.8); ABS Monocytes 0.5 10^3/ul (0-0.8); ABS Neutrophils 6.4 10^3/ul (1.5-7.7); ABS Nucleated RBC 0 10^3/ul; Eosinophil % 1.1 %; Hematocrit 41 % (33-41); Hemoglobin 13.1 g/dL (12.0-16.0); Lymphocyte % 23.3 %; Mean Corpuscular HGB Conc 32 g/dL (31-36); Mean Corpuscular Hemoglobin 28 pg (27-31); Mean Corpuscular Volume 86 fL (80-97); Nucleated Red Blood Cells % 0; Platelet Count 196 10^3/uL (150-450); Red Blood Count 4.72 10^6 /uL (3.70-4.87); Red Cell Distribution Width 14 % (10.5-15); White Blood Count 9.2 10^3/uL (3.5-10.8)
[2019-01-17 23:22] LABS: Barbiturates Urine Screen None Detected (None Detect); Benzodiazepine Urine Screen None Detected (None Detect); Urine Cannabinoids Screen None Detected (None Detect)
[2019-01-17 23:31] LABS: ALT 16 U/L (7-52); AST 16 U/L (13-39); Albumin 3.9 g/dL (3.2-5.2); Albumin/Globulin Ratio 1.4 (1-3); Alkaline Phosphatase 71 U/L (34-104); Anion Gap 7 mmol/L (2-11); BUN/Creatinine Ratio 11.3 (8-20); Blood Urea Nitrogen 9 mg/dL (6-24); CO2 Carbon Dioxide 26 mmol/L (22-32); Calcium 9.4 mg/dL (8.6-10.3); Chloride 109 mmol/L (101-111); EGFR African American 89.5 (>60); EGFR Non-African American 73.9 (>60); Globulin 2.8 g/dL (2-4); Glucose 58 mg/dL (70-100); Potassium 3.2 mmol/L (3.5-5.0); Sodium 142 mmol/L (135-145); Total Protein 6.7 g/dL (6.4-8.9)
[2019-01-17 23:54] LABS: Acetaminophen < 15 mcg/mL; Alcohol < 10 mg/dL (<10); Salicylate < 2.50 mg/dL (<30)
[2019-01-18 00:10] LABS: TSH (Thyroid Stimulating Horm) 1.78 mcIU/mL (0.34-5.60)
--- NOTE | 2019-01-18 08:18 | ED ---
Progress - Progress Note Progress Note: This pt was signed out by Dr. Julien at shift change, pending disposition, awaiting mental health evaluation. Pt had a mental health evaluation and she was evaluated by Dr. Arroyo, psychiatrist. Dr. Arroyo cleared the pt for discharge. Pt will be discharged home with her sister with follow up from the ACT team. Dx: schizophrenia. Pt will be given a prescription for Ciprofloxacin for her UTI. Re-Evaluation - Re-Evaluation 1st re-eval Re-Evaluation Time: 01:52 Change: Unchanged Comment: Dr. Geiger would like to keep the pt on a mental health hold due to the fact that the pt called the ACT team and told them that she overdosed. Course/Dx - Diagnoses Provider Diagnoses: Schizophrenia, UTI (urinary tract infection) Discharge - Sign-Out/Discharge Documenting (check all that apply): Patient Departure - Discharge home, Receiving Sign-Out Receiving patient FROM: Leisa Julien Patient Received Moderate/Deep Sedation with Procedure: No - Discharge Plan Condition: Stable Disposition: HOME Prescriptions: Ciprofloxacin TAB* [Cipro 250 MG Tab*] 250 mg PO BID #6 tab Referrals: Asher Interiano MD [Primary Care Provider] - - Billing Disposition and Condition Condition: STABLE Disposition: Home - Attestation Statements Document Initiated by Scribe: Yes Documenting Scribe: Yudi Roman Provider For Whom Xin is Documenting (Include Credential): Jorge Pantjoa MD Scribe Attestation: Yudi Taylor, scribed for Jorge Pantoja MD on 01/18/19 at 1821. Scribe Documentation Reviewed: Yes Provider Attestation: The documentation as recorded by the Yudi taylor accurately reflects the service I personally performed and the decisions made by me, Jorge Pantoja MD Status of Scribe Document: Viewed
--- NOTE | 2019-01-18 08:48 | PN ---
ED Flex Patient Progress Note Date of Service: 01/18/19 SUBJECTIVE This is a 58 year-old F who was seen and evaluated in the emergency department. I am familiar with this patients psychiatric history from being her provider on the inpatient unit on many occasions. She said that she has been hearing voices and that the voices get worse when she is lonely and not doing activities or interacting with others. She reported that she called the ACT team and told them she is hearing voices. She said that the voices disappear when she goes for a walk and engages in distracting activities. She has been taking her medications and has not been engaging in substance abuse. She has a appointment with the ACT team . She denied recent self injurious behavior. She is currently on a waiting list for supportive housing that would provide more social contact. Patient reported that she was hearing voices ( which has been chronic and ongoing for several years ), and that the voices she names as Phonetel. She denied suicidal ideation intent or plan. She denied homicidal ideation intent or plan. She said that having people around helps with her voices. She has been following up with the act team regularly. Patient denied access to firearms or stocks piles of medications. She denied voices telling her to hurt/ kill herself and or others. Patient is looking forward to seeing ACT team members on . Objective: See ED note for Physical Exam APPEARANCE : 58 year old who appears stated age. Patient is not malodourous, and appears to have fair hygiene and grooming. BEHAVIOR: Cooperative , calm EYE CONTACT: Fair PSYCHOMOTOR ACTIVITY: No psychomotor agitation or retardation. MOVEMENTS: No abnormal movements observed. SPEECH : Normal rate, rhythm, volume and tone. MOOD : " anxious" AFFECT : constricted THOUGHT PROCESS: some what in a logical, linear goal directed manner. THOUGHT CONTENT: no preoccupations PERCEPTION: No current visual hallucinations. Doesnt appear to be responding to internal cues. Reports auditory hallucinations non commanding type SUICIDALITY Denied suicidal ideation, intent or plan. HOMICIDALITY Denied homicidal ideation, intent or plan. Insight/judgment: Fair insight and judgment ORIENTATION: Oriented to self, location, and time. Assessment: 58 year old single female with history of schizophrenia and multiple hospitalizations hearing voices during times of loneliness that have favorable response to behavioral activating activities. Plan: -Patient doesnt meet criteria for inpatient psychiatric hospitalization at this time. -Plans to follow up with the ACT team . -Patient is in agreement with the plan to follow up with the ACT team and wait for supportive housing options to become available. -Collateral obtained from ACT team. - Patient has been hospitalized multiple times in the last 2 months and has failed to benefit from psychiatric inpatient hospitalization and is currently not a danger to herself and or others. She has the support of her family and the ACT team. Her voices remit with behavioral and social activation, which is not consistent with voices of psychotic origin. -Risk factors: Single, history of mental illness, prior suicide attempts Protective factors: Currently no suicidal ideation intent or plan. Has strong support system. No history of service, currently no feelings of hopelessness, doesnt have multiple medical conditions, no family history of suicide, doesnt have access to firearms. No history of substance abuse. No history of alcohol abuse. No recent changes in relationship status, housing, job, etc.. Currently future orientated. Patient engaged in treatment and compliant with medication. Vital Signs Temp Pulse Resp BP Pulse Ox 98.3 F 75 14 160/95 96 01/18/19 08:31 01/18/19 08:31 01/18/19 08:31 01/18/19 08:31 01/18/19 08:31 Lab Results - Entire Visit 01/17/19 01/17/19 01/17/19 23:06 23:06 21:56 WBC 9.2 RBC 4.72 Hgb 13.1 Hct 41 MCV 86 MCH 28 MCHC 32 RDW 14 Plt Count 196 MPV 9.0 Neut % (Auto) 69.7 Lymph % (Auto) 23.3 [place] % (Auto) 5.6 Eos % (Auto) 1.1 Baso % (Auto) 0.3 Absolute Neuts (auto) 6.4 Absolute Lymphs (auto) 2.1 Absolute Monos (auto) 0.5 Absolute Eos (auto) 0.1 Absolute Basos (auto) 0 Absolute Nucleated RBC 0 Nucleated RBC % 0 Sodium 142 Potassium 3.2 L Chloride 109 Carbon Dioxide 26 Anion Gap 7 BUN 9 Creatinine 0.80 Est GFR ( Amer) 89.5 Est GFR (Non-Af Amer) 73.9 BUN/Creatinine Ratio 11.3 Glucose 58 L Calcium 9.4 Total Bilirubin 0.30 AST 16 ALT 16 Alkaline Phosphatase 71 Total Protein 6.7 Albumin 3.9 Globulin 2.8 Albumin/Globulin Ratio 1.4 TSH 1.78 Urine Color Urine Appearance Urine pH Ur Specific [place] Urine Protein Urine Ketones Urine Blood Urine Nitrate Urine Bilirubin Urine Urobilinogen Ur Leukocyte Esterase Urine WBC (Auto) Urine RBC (Auto) Ur Squamous Epith Cells Calcium Oxalate Crystal Urine Bacteria Urine Glucose Urine Ascorbic Acid Salicylates < 2.50 Urine Opiates Screen None detected Acetaminophen < 15 Ur Barbiturates Screen None detected Ur Phencyclidine Scrn None detected Ur Amphetamines Screen None detected U Benzodiazepines Scrn None detected Urine Cocaine Screen None detected U Cannabinoids Screen None detected Serum Alcohol < 10 01/17/19 21:56 WBC RBC Hgb Hct MCV MCH MCHC RDW Plt Count MPV Neut % (Auto) Lymph % (Auto) [place] % (Auto) Eos % (Auto) Baso % (Auto) Absolute Neuts (auto) Absolute Lymphs (auto) Absolute Monos (auto) Absolute Eos (auto) Absolute Basos (auto) Absolute Nucleated RBC Nucleated RBC % Sodium Potassium Chloride Carbon Dioxide Anion Gap BUN Creatinine Est GFR ( Amer) Est GFR (Non-Af Amer) BUN/Creatinine Ratio Glucose Calcium Total Bilirubin AST ALT Alkaline Phosphatase Total Protein Albumin Globulin Albumin/Globulin Ratio TSH Urine Color Yellow Urine Appearance Cloudy Urine pH 5.0 Ur Specific [place] 1.023 Urine Protein Negative Urine Ketones Trace A Urine Blood Negative Urine Nitrate Positive A Urine Bilirubin Negative Urine Urobilinogen Negative Ur Leukocyte Esterase 1+ A Urine WBC (Auto) 3+(>20/hpf) A Urine RBC (Auto) Absent Ur Squamous Epith Cells Present A Calcium Oxalate Crystal Present A Urine Bacteria 1+ A Urine Glucose Negative Urine Ascorbic Acid * A Salicylates Urine Opiates Screen Acetaminophen Ur Barbiturates Screen Ur Phencyclidine Scrn Ur Amphetamines Screen U Benzodiazepines Scrn Urine Cocaine Screen U Cannabinoids Screen Serum Alcohol
[2019-01-18] MEDS ORDERED: Ciprofloxacin TAB* 500 MG PO ONE (09:34)
[2019-01-18] MEDS ORDERED: Potassium Chlor TAB* 20 MEQ TAB.ER PO ONE (10:46)
[2019-01-18 11:36] VITALS: BP 147/87
--- NOTE | 2019-01-20 08:39 | PN ---
Progress Note - Progress Note Date of Service: 01/17/19 Note: Urine culture preliminary grew Enterobacter species 50-75,000 Patient was placed on ciprofloxacin prior to discharge This will likely cover We will await sensitivities
== END 2019-01-18 11:30 | disposition home or self-care (01) ==
LOC: ED 21:38
DX: F20.9 Schizophrenia, unspecified (principal); N39.0 Urinary tract infection, site not specified; Z88.3 Allergy status to other anti-infective agents; Z88.8 Allergy status to other drugs, medicaments and biological substances; Z87.891 Personal history of nicotine dependence
CPT/HCPCS: 36415; 80053; 80307; 80320; 80329; 81003; 81015; 84443; 85025; 87077; 87086; 87186; 93005; 99285; A9270-GY; G0480

== ENCOUNTER 2019-01-29 16:52 | Inpatient (IN) | payer MEDICARE ==
[2019-01-29] MEDS ORDERED: Nicotine Inhaler* 10 MG AMP INH PRN (17:20)
--- NOTE | 2019-01-29 17:25 | ED ---
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 Pt says the voices are telling her to "be a good girl." Pt takes Klonopin and says she is medication compliant. Pt is very lethargic and somnolent at bedside. She lives alone but says she wants to live in a long-term, because she cant stand the pain of the voices. - History Of Current Complaint Chief Complaint: EDMentalHealth Time Seen by Provider: 01/29/19 17:19 Hx Obtained From: Patient Onset/Duration: Still Present Timing: Constant Severity Initially: Moderate Severity Currently: Severe Character: Lethargic Associated Signs And Symptoms: Positive: Hallucinating - auditory Related History: Positive For: Prior Psychiatric Issues - Allergies/Home Medications Allergies/Adverse Reactions: Allergies Allergy/AdvReac Type Severity Reaction Status Date / Time ampicillin Allergy Swelling Verified 01/29/19 17:07 benztropine [From Cogentin] Allergy Diarrhea Verified 01/29/19 17:07 PMH/Surg Hx/FS Hx/Imm Hx Previously Healthy: No Endocrine/Hematology History: Denies: Hx Anticoagulant Therapy Cardiovascular History: Reports: Other Cardiovascular Problems/Disorders - arrhythmia Denies: Hx Myocardial Infarction Respiratory History: Reports: Hx Sleep Apnea History: Reports: Other Problems/Disorders - incontinence Denies: Hx Dialysis Musculoskeletal History: Reports: Hx Arthritis Sensory History: Reports: Hx Contacts or Glasses Denies: Hx Hearing Aid Opthamlomology History: Reports: Hx Contacts or Glasses Neurological History: Denies: Hx Dementia, Hx Headaches, Hx Migraine Psychiatric History: Reports: Hx Anxiety, Hx Depression, Hx Panic Disorder, Hx Inpatient Treatment, Hx Community Mental Health Tx, Hx Schizophrenia, Hx Suicide Attempt, Other Psychiatric Issues/Disorders - Schizoaffective disorder Denies: Hx Eating Disorder, Hx of Violent Episodes Against Others - Cancer History Hx Chemotherapy: No Hx Radiation Therapy: No - Surgical History Surgery Procedure, Year, and Place: None - Immunization History Date of Tetanus Vaccine: unk Date of Influenza Vaccine: unk Infectious Disease History: No Infectious Disease History: Denies: Traveled Outside the [place] in Last 30 Days - Family History Known Family History: Positive: Other - Depression Negative: Cardiac Disease, Diabetes - Social History 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 Lives: Alone Alcohol Use: Occasionally Alcohol Amount: states "once every other day" Hx Substance Use: No Substance Use Type: Reports: None Substance Use Comment - Amount & Last Used: 5 years ago Hx Tobacco Use: Yes Smoking Status (MU): Former Smoker Type: Cigarettes Amount Used/How Often: pt has used no tobacco products in last 30days Review of Systems Negative: Fever Positive: Headache Psychological: Other - pos: auditory hallucinations All Other Systems Reviewed And Are Negative: Yes Physical Exam - Summary Physical Exam Summary: GENERAL: Patient is a well-developed and nourished FEMALE who is lying comfortable in the stretcher. Patient is not in any acute respiratory distress. HEAD AND FACE: Normocephalic EYES: PERRLA, EOMI x 2. EARS: Hearing grossly intact. MOUTH: Oropharynx within normal limits. NECK: Supple, trachea is midline, no adenopathy, no JVD, no carotid bruit. CHEST: Symmetric, no tenderness at palpation LUNGS: Clear to auscultation bilaterally. No wheezing or crackles. CVS: Regular rate and rhythm, S1 and S2 present, no murmurs or gallops appreciated. ABDOMEN: Soft, non-tender. Bowel sounds are normal. No abdominal abnormal pulsations. EXTREMITIES: Full ROM in all major joints, no edema, no cyanosis or clubbing. NEURO: Alert and oriented x 3. No acute neurological deficits. Speech is normal and follows commands. SKIN: Dry and warm PSYCH: Lethargic. Somnolent. Triage Information Reviewed: Yes Vital Signs On Initial Exam: Initial Vitals Temp Pulse Resp BP Pulse Ox 98.2 F 85 16 160/98 94 01/29/19 17:00 01/29/19 17:00 01/29/19 17:00 01/29/19 17:00 01/29/19 17:00 Vital Signs Reviewed: Yes Diagnostics - Vital Signs Vital Signs Temp Pulse Resp BP Pulse Ox 01/29/19 17:00 98.2 F 85 16 160/98 94 - Laboratory Result Diagrams: 01/29/19 17:34 01/29/19 17:34 Lab Statement: Any lab studies that have been ordered have been reviewed, and results considered in the medical decision making process. Course/Dx - Course Course Of Treatment: Pt is a 58 y/o F with pert PMHx: schizophrenia presenting for MHE with auditory hallucinations and HOLMAN. Workup thus far is unremarkable. Pt will be signed out to Dr. Julien at shift change pending medical clearance ( drug tox/UA) and MHE. - Differential Dx/Clinical Impression Provider Diagnosis: Hallucinations Discharge - Sign-Out/Discharge Documenting (check all that apply): Sign-Out Patient Signing out patient TO: Leisa Julien - pending med clear / MHE Patient Received Moderate/Deep Sedation with Procedure: No - Discharge Plan Referrals: Asher Interiano MD [Primary Care Provider] - - Attestation Statements Document Initiated by Scribe: Yes Documenting Scribe: Brandyn Swift Provider For Whom Scribe is Documenting (Include Credential): Dr. Wili Rice MD Scribe Attestation: I, Brandyn Swift, scribed for Dr. Wili Rice MD on 01/30/19 at 1452. Scribe Documentation Reviewed: Yes Provider Attestation: The documentation as recorded by the Brandyn taylor accurately reflects the service I personally performed and the decisions made by me, Dr. Wili Rice MD Status of Scribe Document: Viewed
[2019-01-29 17:42] LABS: ABS Basophils 0.1 10^3/ul (0-0.2); ABS Eosinophils 0.1 10^3/ul (0-0.6); ABS Lymphocytes 1.7 10^3/ul (1.0-4.8); ABS Monocytes 0.5 10^3/ul (0-0.8); ABS Neutrophils 6.2 10^3/ul (1.5-7.7); ABS Nucleated RBC 0 10^3/ul; Eosinophil % 1.3 %; Hematocrit 42 % (33-41); Hemoglobin 13.4 g/dL (12.0-16.0); Lymphocyte % 19.6 %; Mean Corpuscular HGB Conc 32 g/dL (31-36); Mean Corpuscular Hemoglobin 28 pg (27-31); Mean Corpuscular Volume 86 fL (80-97); Nucleated Red Blood Cells % 0.1; Platelet Count 197 10^3/uL (150-450); Red Blood Count 4.83 10^6 /uL (3.70-4.87); Red Cell Distribution Width 14 % (10.5-15); White Blood Count 8.6 10^3/uL (3.5-10.8)
[2019-01-29 17:58] LABS: ALT 23 U/L (7-52); AST 25 U/L (13-39); Acetaminophen < 15 mcg/mL; Albumin/Globulin Ratio 1.5 (1-3); Alcohol < 10 mg/dL (<10); Alkaline Phosphatase 68 U/L (34-104); Anion Gap 6 mmol/L (2-11); BUN/Creatinine Ratio 10.4 (8-20); Blood Urea Nitrogen 8 mg/dL (6-24); CO2 Carbon Dioxide 26 mmol/L (22-32); Calcium 9.3 mg/dL (8.6-10.3); Chloride 108 mmol/L (101-111); EGFR African American 93.5 (>60); EGFR Non-African American 77.3 (>60); Globulin 2.7 g/dL (2-4); Glucose 109 mg/dL (70-100); Potassium 3.7 mmol/L (3.5-5.0); Salicylate < 2.50 mg/dL (<30); Sodium 140 mmol/L (135-145); Total Protein 6.7 g/dL (6.4-8.9)
[2019-01-29 18:13] LABS: TSH (Thyroid Stimulating Horm) 0.75 mcIU/mL (0.34-5.60)
[2019-01-29] MEDS ORDERED: Ondansetron TAB* 4 MG PO ONE (20:20)
[2019-01-29] MEDS ORDERED: Ibuprofen TAB* 600 MG PO ONE (20:20)
--- NOTE | 2019-01-29 22:35 | ED ---
Progress - Progress Note Progress Note: Patient signed out from Dr. Rice to Dr. Julien at 1900. MHE stated patient will be on MHU hold over night. Patient will be signed out to Dr. Rice at 0700. - Consult/PCP Time Called: 19:00 Course/Dx - Course Course Of Treatment: Patient signed out from Dr. Rice to Dr. Julien at 1900. Patient has been medically cleared. MHE stated patient will be on MHU hold over night. Patient will be signed out to Dr. Rice at 0700. - Diagnoses Provider Diagnoses: Hallucinations, Schizophrenia Discharge - Sign-Out/Discharge Documenting (check all that apply): Sign-Out Patient, Receiving Sign-Out Signing out patient TO: Wili Rice Receiving patient FROM: Wili Rice - Discharge Plan Condition: Fair Disposition: ADMITTED TO [facility] - Billing Disposition and Condition Condition: FAIR Disposition: Admitted to [facility] - Attestation Statements Document Initiated by Xin: Yes Documenting Scribe: Parmjit Lewis Provider For Whom Xin is Documenting (Include Credential): Leisa Julien MD Scribe Attestation: Parmjit Taylor, scribed for Leisa Julien MD on 01/30/19 at 2022. Scribe Documentation Reviewed: Yes Provider Attestation: The documentation as recorded by the Parmjit taylor accurately reflects the service I personally performed and the decisions made by Tameka gutierrez MD Status of Scribe Document: Viewed
--- NOTE | 2019-01-30 07:21 | ED ---
Progress - Progress Note Progress Note: The patient was signed out by Dr. Julien to Dr. Rice, awaiting transfer. - Consult/PCP Time Called: 19:00 Course/Dx - Course Course Of Treatment: The patient was signed out by Dr. Julien to Dr. Rice, awaiting transfer. Per nurse obgyn, pt was cleared by Dr. Kaur, psych, for voluntary admission. - Diagnoses Provider Diagnoses: Hallucinations, Schizophrenia - Provider Notifications Discussed Care Of Patient With: Rolf Kaur Time Discussed With Above Provider: 16:32 Instructed by Provider To: Admit As Inpatient Discharge - Sign-Out/Discharge Documenting (check all that apply): Patient Departure - admission, Receiving Sign-Out Receiving patient FROM: Leisa Julien Patient Received Moderate/Deep Sedation with Procedure: No - Discharge Plan Condition: Fair Disposition: ADMITTED TO [facility] - Billing Disposition and Condition Condition: FAIR Disposition: Admitted to [facility] - Attestation Statements Document Initiated by Scribe: Yes Documenting Scribe: Vern Cavazos Provider For Whom Scribe is Documenting (Include Credential): Wili Rice MD Scribe Attestation: Vern Taylor, scribed for Wili Rice MD on 01/30/19 at 1828. Scribe Documentation Reviewed: Yes Provider Attestation: The documentation as recorded by the Vern taylor accurately reflects the service I personally performed and the decisions made by , Wili Rice MD Status of Scribe Document: Viewed
--- NOTE | 2019-01-30 09:34 | PN ---
Progress Note - Progress Note Date of Service: 01/23/19 Note: Patient urine culture final grew Enterobacter [place] Patient was not placed on medications prior to discharge [place] count was less than 50,000 No medication treatment indicated at this time Nothing further
[2019-01-30] MEDS ORDERED: clonazePAM TAB(*) 1 MG PO ONE (12:09)
[2019-01-30] MEDS ORDERED: PARoxetine HCL TAB* 20 MG PO ONE (12:10)
[2019-01-30] MEDS ORDERED: fluPHENAZine HCL TAB* 1 MG PO ONE (12:11)
--- NOTE | 2019-01-30 13:31 | PN ---
Progress Note - Progress Note Date of Service: 01/29/19 Note: [facility] HOLD Subjective: Patient denies any complaints or concerns at this time. Reports no need for medications or additions to medical plan established for patient. patient reports not sleeping well. Continues to hear voices. Medications updated in system by Dr. Rice on 01/30/19 at 12pm. Objective: VS stable No change to current medications Alert and cooperative and resting comfortably. Appearance: WDW, comfortable, pleasant, alert Skin: Soft dry skin, no lesions. Eyes: KARL, EOMI, Conjunctiva pink with no redness or exudates. Neck: Full range of motion. Pulm: Chest symmetrical expansion. No deformities on posterior chest wall. Lungs clear to auscultation and percussion, without adventitious sounds. CV: Heart sounds?RRR, Normal S1 and single S2. No S3, S4, rubs, or murmurs. Musculoskeletal: ROM WNL in all extremities. No deformities noted. Neuro: A&OX3 Psych: Logical, coherent Assessment: Patient has participated in plan with compliance to medications while awaiting assessment. Dx at this time remains schizo disorder. Plan: Continue mediations as prescribed. Will continue to monitor psych behaviors and need for any medication. Will provide a patient to provider assessment within every 24 hours during stay until safe discharge/transfer/ admission plan is established.
[2019-01-30] MEDS ORDERED: Al Hydrox/Mg Hydrox/Simet LIQ* 30 ML UDC PO PRN (17:03)
[2019-01-30] MEDS ORDERED: risperiDONE TAB* 2 MG PO SCH (21:00)
[2019-01-31] MEDS: Vitamin THERAPEUTIC TAB PO SCH (08:08)
--- NOTE | 2019-01-31 10:43 | HP ---
H&P (Free Text) History and Physical: Justification for admission: Immediate Safety. CC " I was hearing voices that got me nervous " The patient was brought to [facility] after she started hearing voices telling her " mean things" about her. She recently moved to [facility]. She reported that the voices cause her to be distressed and feel unsafe. She denied access to firearms or stockpiles of medications. She reported getting poor sleep. She reported good appetite. The patient denied suicidal and or homicidal ideation intent or plan. The patient denied visual hallucinations. Her brother in law, Gaston visited today and is unsure what to do to help make things better. Patent reported losing track of time and became confused. Psychosis She endorses hearing things that other people do not hear. She denied feeling that TV is making references. Denied feeling that people are spying , following , or reading their thoughts. Bipolar Denied symptoms of justin such as having many ideas at once. Denied increased talkativeness where no one can interrupt. Denied feeling irritable most of the time while having an persistent abundance of energy most of the day without the use of energy drinks, stimulants, or recreational drug use. Denied an increase in intensity in goal directed activities. Denied having the decreased need to sleep for days , having prolonged elevated mood , or feeling on top of the world. Denied impulsive risky sexual encounters. Denied spending money recklessly , going on spending sprees wiping out savings. Denied impulsively traveling out of town or country, having super peter, and unrealistic wealth or fame. MDD Denied feeling depressed or having diminished interest in hobbies or interests which were present in the past , for most of the time, lasting more than 2 weeks. Denied having crying spells , feeling empty inside, feelings of hopelessness or worthless. Denied unintentional weight loss or appetite . Denied interruption of sleep or feeling tired throughout the day. Denied loss of energy or lack of motivation to complete tasks. Denied overwhelming feelings of guilt , or decreased concentration. Denied recurrent thoughts of . Denied feeling no purpose in life or would be better off . Anxiety Denied having symptoms of anxiety such as having times where heart feels that it is beating out of chest, sweaty palms, or shallow breathing. Denied having uncomfortable or intrusive thoughts. Denied feeling restless, high strung, or worrying too much most of the time. PAST PSYCHIATRIC HISTORY: Numerous hospitalizations with first one starting at age 21. Suicide attempt in early 20s She is currently under the care of [facility]. Patient has had 3 inpatient hospitalizations [place] [facility] and 4 ED visits within 2 months, without evidence of improvement. FAMILY HISTORY: - Suicide: Denied family history of suicide. - Mental illness: Denied a history of mental health in immediate family members. - Substance abuse: Alcohol abuse in mother. SUBSTANCE ABUSE HISTORY: Drinks socially 2 beers a week, She denies any abuse of tobacco or illicit substances. PAST MEDICAL HISTORY: Significant for sleep apnea, diabetes, urinary incontinence. Social History: Patient lives alone is single never and has no children. Mental Status Exam on Admission APPEARANCE : 58 year old who appears stated age. Some what fair hygiene and grooming. BEHAVIOR: Cooperative , calm. EYE CONTACT: Fair PSYCHOMOTOR ACTIVITY: No psychomotor agitation or retardation. MOVEMENTS: No abnormal movements observed. SPEECH : Normal rate, rhythm, volume and tone. MOOD : "fine " AFFECT : Constricted THOUGHT PROCESS: Formulated and organized in a logical, linear goal directed manner. THOUGHT CONTENT: Delusions present PERCEPTION: Current auditory hallucinations. SUICIDALITY Denied suicidal ideation, intent or plan. HOMICIDALITY Denied homicidal ideation, intent or plan. ORIENTATION: Oriented to self, location, and time. Insight/judgment: Poor insight and judgment Diagnosis on Admission: Schizophrenia Assessment: 58 year old with history of schizophrenia came to the hospital for hearing voices and was admitted to the BSU at [facility]. Plan #Admit to BSU, Q15 minute observation. Start regular diet. Encourage participation in activities on the milieu. # Justification for Admission: For immediate safety per outlined in the [place] Mental Hygiene Code. # Voluntary admission. The patient requires inpatient admission at this time to assure safety, receive treatment and work toward stabilization. # Labs ordered: CBC, CMP, UDS, TSH, HBA1c, TSH, Toxicology screen, Urine analysis, and lipid profile. #Patient evaluated in ED and was determined by the emergency room Physician to be medically stable for admission to the BSU. # Collaboration with Social Work to work toward discharge planning. #Given the numerous hospitalizations, will consider state hospitalization #Goals before discharge include: Decrease auditory hallucinations. #MOCA testing = 24 The risks, benefits, and alternative treatment options were discussed as well as of the risks of refusing treatment. After this discussion and an acknowledgement of this understanding was made. A risk benefit assessment of treatment was considered and discussed with the patient. When comparing the risks of treatment with the dangers of current clinical presentation. The benefits of treatment outweigh the treatment risks at this time. Risks of behavioral changes, Serotonin syndrome, metabolic risks and NMS were among some of the risks discussed. Sodium 140 mmol/L (135-145) 01/29/19 17:34 Potassium 3.7 mmol/L (3.5-5.0) 01/29/19 17:34 BUN 8 mg/dL (6-24) 01/29/19 17:34 Creatinine 0.77 mg/dL (0.51-0.95) 01/29/19 17:34 Calcium 9.3 mg/dL (8.6-10.3) 01/29/19 17:34 AST 25 U/L (13-39) 01/29/19 17:34 ALT 23 U/L (7-52) 01/29/19 17:34 Vital Signs Temp Pulse Resp BP Pulse Ox 97.4 F 95 16 129/67 97 01/31/19 07:58 01/31/19 07:58 01/31/19 12:01 01/31/19 07:58 01/31/19 07:58
[2019-01-31] MEDS: fluPHENAZine HCL TAB* 1 MG PO SCH (20:02)
[2019-01-31] MEDS: Acetaminophen TAB* 325 MG PO PRN (20:05)
[2019-01-31] MEDS ORDERED: clonazePAM TAB(*) 1 MG PO SCH (21:00)
[2019-02-01] MEDS: Vitamin THERAPEUTIC TAB PO SCH (08:16)
[2019-02-01] MEDS: fluPHENAZine HCL TAB* 1 MG PO SCH ×2 (08:17→08:18)
[2019-02-01] MEDS ORDERED: PARoxetine HCL TAB* 20 MG PO SCH (09:00)
--- NOTE | 2019-02-01 11:29 | PN ---
Subjective - Subjective Date of Service: 02/01/19 Service Type: 39405 Hosp care 35 min high complexity Subjective: Nursing Report: Patient was visible on unit, no chemical restraints or PRNs. Slept overnight without incident. CC: "I am okay Patient was seen and evaluated by this provider. The patient reported she feels safe on the unit she okay with starting new medications. She reported having an adequate appetite and sleep. Per nursing no behavioral issues or overnight events reported. Patient reported that she is tolerating medications without side effects. Objective - General Observations Appears Stated Age: No Stature: Overweight Posture: Slumped Eye Contact: Intense Behavior/Activity: Slowed - Interaction Observations Attitude Towards Examiner: Confused Stated Mood: Anxious Affect: Restricted Speech Pattern/Tone: Clear Thought Process: Loose Associations Perception: WNL Thought Content: Self-Deprecatory Thought Process: Lethality: Paranoid Ideation Hallucination Type: None, Auditory Delusion Type: Somatic - Cognitive Function Orientation: A&O x 4 Level of Consciousness: Awake Cognition: Impaired Memory Insight: WNL Judgment Within Normal Limits: No Ability to Make Reasonable Decisions: Moderately Impaired - Medication Compliance Cooperative with Inpatient Medication Regimen: Yes - Group Participation Participates in Group Activities: Partial Assessment - Assessment Merits Inpatient Hospitalization: For Stabilization Clinical Impression: 58 year old female with a history of schizophrenia and multiple hospitalizations unresponsive to treatment. Plan - Plan Treatment Plan: Name: YAHIR ALEXANDRE Birthdate: 1960 [id number] # Q15 minute observation. # The patient requires inpatient admission at this time to assure safety, receive treatment and work toward stabilization. # Labs reviewed for clozapine initiation. # 2 baseline WBC and ANC # Collaboration with Social Work to assist with disposition and after care. #Plan to start clozapine 12.5mg BID # Weekly WBC #Goals before discharge include: stabilization of psychiatric symptoms Patient continues to show inadequate response to treatment. The risks, benefits, and alternative treatment options were discussed as well as of the risks of refusing treatment. After this discussion and an acknowledgement of this understanding was made. A risk/ benefit assessment of treatment was considered and discussed with the patient. When comparing the risks of treatment with the dangers of not receiving treatment, the benefits of treatment outweigh the treatment risks at this time. Risks of suicidal ideation , behavioral changes, dystonia, movement disorders, cardiac conduction changes , serotonin syndrome, metabolic risks and NMS were among some of the risks discussed. Continued Medication Management: Continue Outpt Medication Medications: Current Medications Acetaminophen (Tylenol Tab*) 650 mg PO Q4H PRN PRN Reason: PAIN or TEMP > 101 F Last Admin: 01/31/19 20:05 Dose: 650 mg Al Hydrox/Mg Hydrox/Simethicone (Maalox Plus*) 30 ml PO Q4H PRN PRN Reason: INDIGESTION Clonazepam (Klonopin Tab(*)) 1 mg PO BEDTIME [facility] Last Admin: 01/31/19 20:03 Dose: 1 mg Diphenhydramine HCl (Benadryl Po*) 50 mg PO Q6H PRN PRN Reason: AGITATION/INSOMNIA Fluphenazine HCl (Prolixin Tab*) 2 mg PO 0900,2100 [facility] Last Admin: 02/01/19 08:18 Dose: 2 mg Multivitamins (Theragran Tab*) 1 tab PO DAILY [facility] Last Admin: 02/01/19 08:16 Dose: 1 tab Nicotine (Nicotine Inhaler*) 10 mg INH Q2H PRN PRN Reason: CRAVING Paroxetine HCl (Paxil Tab*) 20 mg PO DAILY [facility] Last Admin: 02/01/19 08:16 Dose: 20 mg - Discharge Plan Discharge Plan: Inpatient Hospitalization
[2019-02-02] MEDS: CloZAPine TAB* 25 MG TAB PO SCH ×2 (08:38→20:04)
[2019-02-02] MEDS: Vitamin THERAPEUTIC TAB PO SCH (08:38)
[2019-02-02 09:18] LABS: ABS Basophils 0.1 10^3/ul (0-0.2); ABS Eosinophils 0.1 10^3/ul (0-0.6); ABS Lymphocytes 1.3 10^3/ul (1.0-4.8); ABS Monocytes 0.5 10^3/ul (0-0.8); ABS Neutrophils 4.7 10^3/ul (1.5-7.7); ABS Nucleated RBC 0 10^3/ul; Eosinophil % 1.8 %; Hematocrit 43 % (33-41); Hemoglobin 13.8 g/dL (12.0-16.0); Lymphocyte % 19.7 %; Mean Corpuscular HGB Conc 32 g/dL (31-36); Mean Corpuscular Hemoglobin 28 pg (27-31); Mean Corpuscular Volume 85 fL (80-97); Mean Platelet Volume 9.4 fL (7.4-10.4); Nucleated Red Blood Cells % 0.1; Platelet Count 212 10^3/uL (150-450); Red Blood Count 5.02 10^6 /uL (3.70-4.87); Red Cell Distribution Width 15 % (10.5-15); White Blood Count 6.6 10^3/uL (3.5-10.8)
[2019-02-02 09:38] LABS: HDL Cholesterol 40.3 mg/dL
--- NOTE | 2019-02-02 13:27 | PN ---
Subjective - Subjective Date of Service: 02/02/19 Service Type: 03656 Hosp care 35 min high complexity Subjective: CC " I am okay" The patient was seen and evaluated. She reported feeling somewhat dizzy and was in bed most of the day. She denied fever or seizures. She reported that she has been drinking fluids. No PRNs or overnight events. She reported voices that are "not nice" to her. She denied suicidal ideation intent or plan. Objective - General Observations Appearance: Neat Appears Stated Age: Yes Stature: WNL, Overweight Posture: WNL Eye Contact: Average Behavior/Activity: Slowed - Interaction Observations Attitude Towards Examiner: Cooperative Stated Mood: Anxious Affect: Blunted Speech Pattern/Tone: Clear Thought Process: Coherent, Loose Associations Thought Content: Self-Deprecatory Thought Process: Lethality: Paranoid Ideation Hallucination Type: Auditory - Cognitive Function Orientation: A&O x 4 Level of Consciousness: Awake Judgment Within Normal Limits: No Ability to Make Reasonable Decisions: Moderately Impaired - Medication Compliance Cooperative with Inpatient Medication Regimen: Yes - Group Participation Participates in Group Activities: Partial Assessment - Assessment Clinical Impression: 58 year old female with a history of schizophrenia and multiple hospitalizations unresponsive to treatment. Plan - Plan Treatment Plan: Name: YAHIR ALEXANDRE Birthdate: 1960 [id number] # Q15 minute observation. # The patient requires inpatient admission at this time to assure safety, receive treatment and work toward stabilization. # 2 baseline WBC and ANC completed and within normal limits # Collaboration with Social Work to assist with disposition and after care. #Plan to start clozapine 12.5mg BID plan to dose at nighttime # Weekly WBC #Goals before discharge include: stabilization of psychiatric symptoms Patient continues to show inadequate response to treatment. #Clozapine registry contacted [phone] The risks, benefits, and alternative treatment options were discussed as well as of the risks of refusing treatment. After this discussion and an acknowledgement of this understanding was made. A risk/ benefit assessment of treatment was considered and discussed with the patient. When comparing the risks of treatment with the dangers of not receiving treatment, the benefits of treatment outweigh the treatment risks at this time. Risks of suicidal ideation , behavioral changes, dystonia, movement disorders, cardiac conduction changes , serotonin syndrome, metabolic risks and NMS were among some of the risks discussed. 02/02/19 02/02/19 02/02/19 09:06 09:06 09:06 WBC 6.6 RBC 5.02 H Hgb 13.8 Hct 43 H MCV 85 MCH 28 MCHC 32 RDW 15 Plt Count 212 MPV 9.4 Neut % (Auto) 70.5 Lymph % (Auto) 19.7 [place] % (Auto) 7.1 Eos % (Auto) 1.8 Baso % (Auto) 0.9 Absolute Neuts (auto) 4.7 Absolute Lymphs (auto) 1.3 Absolute Monos (auto) 0.5 Absolute Eos (auto) 0.1 Absolute Basos (auto) 0.1 Absolute Nucleated RBC 0 Nucleated RBC % 0.1 Hemoglobin A1c 5.3 Triglycerides 78 Cholesterol 140 LDL Cholesterol 84 HDL Cholesterol 40.3 Continued Medication Management: Continue Outpt Medication Medications: Current Medications Acetaminophen (Tylenol Tab*) 650 mg PO Q4H PRN PRN Reason: PAIN or TEMP > 101 F Last Admin: 01/31/19 20:05 Dose: 650 mg Al Hydrox/Mg Hydrox/Simethicone (Maalox Plus*) 30 ml PO Q4H PRN PRN Reason: INDIGESTION Clozapine (Clozapine Tab*) 12.5 mg PO BID [facility] Last Admin: 02/02/19 08:38 Dose: 12.5 mg Diphenhydramine HCl (Benadryl Po*) 50 mg PO Q6H PRN PRN Reason: AGITATION/INSOMNIA Last Admin: 02/01/19 20:08 Dose: 50 mg Multivitamins (Theragran Tab*) 1 tab PO DAILY [facility] Last Admin: 02/02/19 08:38 Dose: 1 tab Nicotine (Nicotine Inhaler*) 10 mg INH Q2H PRN PRN Reason: CRAVING - Discharge Plan Discharge Plan: Inpatient Hospitalization
[2019-02-02] MEDS: Acetaminophen TAB* 325 MG PO PRN (20:03)
[2019-02-03] MEDS: CloZAPine TAB* 25 MG TAB PO SCH (08:17)
[2019-02-03] MEDS: Vitamin THERAPEUTIC TAB PO SCH (08:17)
--- NOTE | 2019-02-03 11:34 | PN ---
Subjective - Subjective Date of Service: 02/03/19 Service Type: 07384 Hosp care 35 min high complexity Subjective: Nursing Report: Patient was visible on unit, no chemical restraints or PRNs. Slept overnight without incident. CC: "I am scared " Patient was seen and evaluated in the common room. The patient reported she feels scared about changing medications. She requested that she would still like to be on paxil. She spends time in her room. She denied any changes since starting medication. She denied seizures and or difficulty with bowel movements. Objective - General Observations Appears Stated Age: Yes Stature: WNL Posture: WNL Eye Contact: Average, Avoidant, Intense Behavior/Activity: Slowed - Interaction Observations Attitude Towards Examiner: Cooperative Stated Mood: Dysphoric Affect: Flat Speech Pattern/Tone: Quiet Volume Thought Process: Loose Associations Thought Content: Self-Deprecatory Thought Process: Lethality: Paranoid Ideation Hallucination Type: Auditory Delusion Type: Somatic - Cognitive Function Orientation: A&O x 4 Level of Consciousness: Awake Insight: Difficulty Acknowledging Presence of Psyciatric Problems Judgment Within Normal Limits: No Ability to Make Reasonable Decisions: Serverely Impaired - Medication Compliance Cooperative with Inpatient Medication Regimen: Yes - Group Participation Participates in Group Activities: Partial Assessment - Assessment Clinical Impression: 58 year old female with a history of schizophrenia and multiple hospitalizations unresponsive to treatment. Plan - Plan Treatment Plan: Name: YAHIR ALEXANDRE Birthdate: 1960 [id number] # Q15 minute observation. # The patient requires inpatient admission at this time to assure safety, receive treatment and work toward stabilization. # 2 baseline WBC and ANC completed and within normal limits # Collaboration with Social Work to assist with disposition and after care. #Plan to increase clozapine to 25mg at 2100 then 25mg BID # Weekly WBC for first 6 months of treatment #Continue paxil 20mg daily. #Clozapine level ordered per request from [facility]. #Goals before discharge include: stabilization of psychiatric symptoms Patient continues to show inadequate response to treatment. #Clozapine registry with ANC inputted. The risks, benefits, and alternative treatment options were discussed as well as of the risks of refusing treatment. After this discussion and an acknowledgement of this understanding was made. A risk/ benefit assessment of treatment was considered and discussed with the patient. When comparing the risks of treatment with the dangers of not receiving treatment, the benefits of treatment outweigh the treatment risks at this time. Risks of suicidal ideation , behavioral changes, dystonia, movement disorders, cardiac conduction changes , serotonin syndrome, metabolic risks and NMS were among some of the risks discussed. 02/02/19 02/02/19 02/02/19 09:06 09:06 09:06 WBC 6.6 RBC 5.02 H Hgb 13.8 Hct 43 H MCV 85 MCH 28 MCHC 32 RDW 15 Plt Count 212 MPV 9.4 Neut % (Auto) 70.5 Lymph % (Auto) 19.7 [place] % (Auto) 7.1 Eos % (Auto) 1.8 Baso % (Auto) 0.9 Absolute Neuts (auto) 4.7 Absolute Lymphs (auto) 1.3 Absolute Monos (auto) 0.5 Absolute Eos (auto) 0.1 Absolute Basos (auto) 0.1 Absolute Nucleated RBC 0 Nucleated RBC % 0.1 Hemoglobin A1c 5.3 Triglycerides 78 Cholesterol 140 LDL Cholesterol 84 HDL Cholesterol 40.3 Continued Medication Management: Continue Outpt Medication Medications: Current Medications Acetaminophen (Tylenol Tab*) 650 mg PO Q4H PRN PRN Reason: PAIN or TEMP > 101 F Last Admin: 02/02/19 20:03 Dose: 650 mg Al Hydrox/Mg Hydrox/Simethicone (Maalox Plus*) 30 ml PO Q4H PRN PRN Reason: INDIGESTION Clozapine (Clozapine Tab*) 25 mg PO 2100 [facility] Diphenhydramine HCl (Benadryl Po*) 50 mg PO Q6H PRN PRN Reason: AGITATION/INSOMNIA Last Admin: 02/01/19 20:08 Dose: 50 mg Multivitamins (Theragran Tab*) 1 tab PO DAILY [facility] Last Admin: 02/03/19 08:17 Dose: 1 tab Nicotine (Nicotine Inhaler*) 10 mg INH Q2H PRN PRN Reason: CRAVING Paroxetine HCl (Paxil Tab*) 20 mg PO DAILY [facility] - Discharge Plan Discharge Plan: Inpatient Hospitalization
[2019-02-03] MEDS: PARoxetine HCL TAB* 20 MG PO SCH (12:17)
[2019-02-03] MEDS ORDERED: CloZAPine TAB* 25 MG TAB PO SCH (21:00)
[2019-02-04] MEDS: Vitamin THERAPEUTIC TAB PO SCH (08:34)
[2019-02-04] MEDS: PARoxetine HCL TAB* 20 MG PO SCH (08:34)
[2019-02-04] MEDS ORDERED: CloZAPine TAB* 25 MG TAB PO SCH (09:00)
--- NOTE | 2019-02-04 13:44 | PN ---
Subjective - Subjective Date of Service: 02/04/19 Service Type: 67200 Hosp care 35 min high complexity Subjective: Nursing Report: Patient was visible on unit, no chemical restraints or PRNs. Slept overnight without incident. CC: "I am doing better Patient was seen and evaluated in the common room. The patient reported she feels safe on the unit and is interacting with peers. She reported having adequate appetite and sleep. The patient participating in playing cards with peers. Per nursing no behavioral issues or overnight events reported. Patient reported that she is tolerating medications without side effects. She was happy to see her sister. Objective - General Observations Appears Stated Age: Yes Stature: WNL, Overweight Posture: WNL Eye Contact: Average - Interaction Observations Attitude Towards Examiner: Cooperative Stated Mood: Dysphoric Affect: Blunted Speech Pattern/Tone: Clear Thought Process: Loose Associations Thought Content: Self-Deprecatory Hallucination Type: Auditory Delusion Type: None - Cognitive Function Orientation: A&O x 4 Level of Consciousness: Awake Judgment Within Normal Limits: No Ability to Make Reasonable Decisions: Mildly Impaired - Medication Compliance Cooperative with Inpatient Medication Regimen: Yes - Group Participation Participates in Group Activities: Partial Assessment - Assessment Clinical Impression: 58 year old female with a history of schizophrenia and multiple hospitalizations unresponsive to treatment. Plan - Plan Treatment Plan: Name: YAHIR ALEXANDRE Birthdate: 1960 [id number] # Q30 minute observation + staff pass. # The patient requires inpatient admission at this time to assure safety, receive treatment and work toward stabilization. # Collaboration with Social Work to assist with disposition and after care. #Increase clozapine 50mg BID # Weekly WBC for first 6 months of treatment, next due 02/09/19 #Continue paxil 20mg daily. #Clozapine level ordered #Goals before discharge include: stabilization of psychiatric symptoms Patient continues to show inadequate response to treatment. #Clozapine registry with ANC record. The risks, benefits, and alternative treatment options were discussed as well as of the risks of refusing treatment. After this discussion and an acknowledgement of this understanding was made. A risk/ benefit assessment of treatment was considered and discussed with the patient. When comparing the risks of treatment with the dangers of not receiving treatment, the benefits of treatment outweigh the treatment risks at this time. Risks of suicidal ideation , behavioral changes, dystonia, movement disorders, cardiac conduction changes , serotonin syndrome, metabolic risks and NMS were among some of the risks discussed. Sodium 140 mmol/L (135-145) 01/29/19 17:34 Potassium 3.7 mmol/L (3.5-5.0) 01/29/19 17:34 BUN 8 mg/dL (6-24) 01/29/19 17:34 Creatinine 0.77 mg/dL (0.51-0.95) 01/29/19 17:34 Hemoglobin A1c 5.3 % (4.0-5.6) 02/02/19 09:06 Calcium 9.3 mg/dL (8.6-10.3) 01/29/19 17:34 AST 25 U/L (13-39) 01/29/19 17:34 ALT 23 U/L (7-52) 01/29/19 17:34 Triglycerides 78 mg/dL 02/02/19 09:06 Cholesterol 140 mg/dL 02/02/19 09:06 LDL Cholesterol 84 mg/dL 02/02/19 09:06 Vital Signs Temp Pulse Resp BP Pulse Ox 97.8 F 71 16 145/82 100 02/04/19 08:00 02/04/19 08:00 02/04/19 08:00 02/04/19 08:00 02/04/19 08:00 Continued Medication Management: Continue Outpt Medication Medications: Current Medications Acetaminophen (Tylenol Tab*) 650 mg PO Q4H PRN PRN Reason: PAIN or TEMP > 101 F Last Admin: 02/02/19 20:03 Dose: 650 mg Al Hydrox/Mg Hydrox/Simethicone (Maalox Plus*) 30 ml PO Q4H PRN PRN Reason: INDIGESTION Clozapine (Clozapine Tab*) 50 mg PO BID [facility] Diphenhydramine HCl (Benadryl Po*) 50 mg PO Q6H PRN PRN Reason: AGITATION/INSOMNIA Last Admin: 02/01/19 20:08 Dose: 50 mg Multivitamins (Theragran Tab*) 1 tab PO DAILY [facility] Last Admin: 02/04/19 08:34 Dose: 1 tab Nicotine (Nicotine Inhaler*) 10 mg INH Q2H PRN PRN Reason: CRAVING Paroxetine HCl (Paxil Tab*) 20 mg PO DAILY [facility] Last Admin: 02/04/19 08:34 Dose: 20 mg - Discharge Plan Discharge Plan: Inpatient Hospitalization
[2019-02-04] MEDS: CloZAPine TAB* 25 MG TAB PO SCH (20:24)
[2019-02-05] MEDS: Vitamin THERAPEUTIC TAB PO SCH (08:31)
[2019-02-05] MEDS: CloZAPine TAB* 25 MG TAB PO SCH ×2 (08:32→20:39)
[2019-02-05] MEDS: PARoxetine HCL TAB* 20 MG PO SCH (08:32)
[2019-02-05] MEDS: Docusate CAP* 100 MG PO SCH (20:41)
[2019-02-05] MEDS ORDERED: Docusate CAP* 100 MG ONE (20:41)
[2019-02-06] MEDS: Vitamin THERAPEUTIC TAB PO SCH (08:32)
[2019-02-06] MEDS: Docusate CAP* 100 MG PO SCH ×2 (08:33→20:24)
[2019-02-06] MEDS: CloZAPine TAB* 25 MG TAB PO SCH ×2 (08:33→20:24)
[2019-02-06] MEDS: PARoxetine HCL TAB* 20 MG PO SCH (08:33)
--- NOTE | 2019-02-07 07:34 | DS ---
Subjective - Subjective Service Types: 20079 [facility] Day Mgmt complex over 30 min Discharge Date: 02/07/19 Subjective: CC: " Alright" Patient reported that she was not sure about going to [facility] but said that she might like [place] more. She denied drooling, seizures. She reported that the voices were better over the weekend. No behavioral incidents over the weekend. She reported adequate sleep over the weekend. Justification for admission: Immediate Safety. CC " I was hearing voices that got me nervous " The patient was brought to [facility] after she started hearing voices telling her " mean things" about her. She recently moved to [facility]. She reported that the voices cause her to be distressed and feel unsafe. She denied access to firearms or stockpiles of medications. She reported getting poor sleep. She reported good appetite. The patient denied suicidal and or homicidal ideation intent or plan. The patient denied visual hallucinations. Her brother in law, Gaston visited today and is unsure what to do to help make things better. Patent reported losing track of time and became confused. Psychosis She endorses hearing things that other people do not hear. She denied feeling that TV is making references. Denied feeling that people are spying , following , or reading their thoughts. Bipolar Denied symptoms of justin such as having many ideas at once. Denied increased talkativeness where no one can interrupt. Denied feeling irritable most of the time while having an persistent abundance of energy most of the day without the use of energy drinks, stimulants, or recreational drug use. Denied an increase in intensity in goal directed activities. Denied having the decreased need to sleep for days , having prolonged elevated mood , or feeling on top of the world. Denied impulsive risky sexual encounters. Denied spending money recklessly , going on spending sprees wiping out savings. Denied impulsively traveling out of town or country, having super peter, and unrealistic wealth or fame. MDD Denied feeling depressed or having diminished interest in hobbies or interests which were present in the past , for most of the time, lasting more than 2 weeks. Denied having crying spells , feeling empty inside, feelings of hopelessness or worthless. Denied unintentional weight loss or appetite . Denied interruption of sleep or feeling tired throughout the day. Denied loss of energy or lack of motivation to complete tasks. Denied overwhelming feelings of guilt , or decreased concentration. Denied recurrent thoughts of . Denied feeling no purpose in life or would be better off . Anxiety Denied having symptoms of anxiety such as having times where heart feels that it is beating out of chest, sweaty palms, or shallow breathing. Denied having uncomfortable or intrusive thoughts. Denied feeling restless, high strung, or worrying too much most of the time. PAST PSYCHIATRIC HISTORY: Numerous hospitalizations with first one starting at age 21. Suicide attempt in early 20s She is currently under the care of ACT. Patient has had 3 inpatient hospitalizations at [facility] and 4 ED visits within 2 months, without evidence of improvement. FAMILY HISTORY: - Suicide: Denied family history of suicide. - Mental illness: Denied a history of mental health in immediate family members. - Substance abuse: Alcohol abuse in mother. SUBSTANCE ABUSE HISTORY: Drinks socially 2 beers a week, She denies any abuse of tobacco or illicit substances. PAST MEDICAL HISTORY: Significant for sleep apnea, diabetes, urinary incontinence. Social History: Patient lives alone is single never and has no children. Mental Status Exam on Admission APPEARANCE : 58 year old who appears stated age. Some what fair hygiene and grooming. BEHAVIOR: Cooperative , calm. EYE CONTACT: Fair PSYCHOMOTOR ACTIVITY: No psychomotor agitation or retardation. MOVEMENTS: No abnormal movements observed. SPEECH : Normal rate, rhythm, volume and tone. MOOD : "fine " AFFECT : Constricted THOUGHT PROCESS: Formulated and organized in a logical, linear goal directed manner. THOUGHT CONTENT: Delusions present PERCEPTION: Current auditory hallucinations. SUICIDALITY Denied suicidal ideation, intent or plan. HOMICIDALITY Denied homicidal ideation, intent or plan. ORIENTATION: Oriented to self, location, and time. Insight/judgment: Poor insight and judgment Diagnosis on Admission: Schizophrenia Assessment: 58 year old with history of schizophrenia came to the hospital for hearing voices and was admitted to the B[facility] at [facility]. -------- Diagnosis on Discharge:Schizophrenia Condition at the time of discharge: At the time of discharge patient continued to show signs of treatment resistant schizophrenia. However the last few days before discharge the patient showed some improvement and showed less isolation of affect and improved socialization. The patient denied suicidal ideation , intent or plan. The patient denied homicidal targets, ideation, intent or plan. The patient took medication as prescribed. The patient denied side effects of medication and objective signs of side effects were not evident. Patient was advised of importance of blood monitoring and medication side effects. Objective - Appearance Appearance: Obese Dysmorphic Features: No Hygiene: Normal Grooming: Fairly Well Kept - Behavior Psychomotor Activities: Abnormal-Decreased Exhibits Abnormal Movement: No - Attitude and Relatedness Attitude and Relatedness: Cooperative Eye Contact: Fair - Speech Quality: Unpressured Latencies: Long Quantity: Terse - Mood Patient's Decription of Mood: "Fine" - Affect Observed Affect: Non-labile Affect Consistent with: Dysphoria - Thought Process Patient's Thought Process: Coherent Thought Content: No Passive Wish, No Suicidal Planning, No Homicidal Ideation, No Paranoid Ideation - Sensorium Experiencing Hallucinations: Yes Type of Hallucinations: Visual: No, Auditory: Yes, Command: No - Level of Consciousness Level of Consciousness: Alert Orientation: Yes Intact, Yes Orientated to Time, Yes Orientated to Place, Yes Orientated to Person - Impulse Control Impulse Control: Tenuous - Insight and Judgement Insight and Judgement: Fair - Group Participation Particating in Group Activities: Yes - Medication Management Medication Management Adherence: Yes Treatment Course & Assessment Clinical Course & Impression: Hospital course part A: 58 year old female with a history of schizophrenia and multiple hospitalizations unresponsive to treatment. Hospital course part B: Labs ordered included CBC, CMP, UDS, TSH, HBA1c, TSH, Toxicology screen, Urine analysis, and lipid profile. Labs were reviewed and did not require the need for further evaluation. Vital signs were monitored during the course of admission. Next CBC w diff (ANC) due 02/09/19. If patient remains on clozapine , will require weekly CBC with diff (ANC) until 08/04/19 and bi-weekly thereafter for 6months. WBC 8.6 ANC 6.2 on 01/29/19 WBC 6.6 ANC 4.7 on 02/02/19 The patient was admitted to the adult behavioral unit and placed on 15 minute check for safety. At a later time the patient was on Q30 minute observation and staff pass privileges. With those limits being extended , there were no occurrence of behavioral incidents. The patient respected the rules of the milieu. groups. Interacted with peers had adequate sleep and regular appetite. Tolerated medication changes without side effects. Group therapy and services were offered. The risks, benefits, and alternative treatment options were discussed as well as of the risks of refusing treatment. Treatment associated risks discussed . After this discussion and made an acknowledgement of this understanding. Family meeting with sister and brother in law took place before discharge who are in agreement with the plan. Diabetes, metabolic changes, blood pressure changes, seizures and low WBC were some of the treatment risks discussed. During patients last hospitalization she was set up to work with the ACT team and did not show improvement. Patient has had 3 inpatient hospitalizations at [facility] and 4 ED visits within 2 months, without evidence of improvement. She will be transported to [facility] by ambulance. Dr Delaney at [facility] was contacted for a sign out. Patient will continue to be enrolled with the ACT team. Clozapine was started on 02/02/19 at 12.5mg BID and increased to 25mg BID on 02/03 and increased to 50mg BID on 02/04/19. Clozapine registry with ANC recorded. Clozapine level ordered. She was no longer continued on long acting risperdal IM or oral fluphenazine, clonazepam. She was continued on paxil 20mg daily and docusate 100mg BID for constipation. Patient presents with a broader range of affect, and mild improvement of auditory hallucinations. Patient mostly showing negative symptoms. It is uncertain if voices are of true psychotic origin given the relationship to certain situations and distractions. Safety precautions were put in place which included involving family to closely monitor for changes in mental state. In addition, screening for the removing/ securing firearms, weapons and stockpile of medications. Family and patient instructed to immediately call 911 should any safety concerns arise. AIMS was performed and insignificant for involuntary movement disorders. The patient was advised of the 24 hour / 7 days a week availability of the emergency room and to call 911 in the event of becoming suicidal and/ or homicidal and for all other emergencies. The patient was informed of the contact information for [facility], Suicide Prevention and Crisis Services, National Suicide Prevention Lifeline, [facility], Alcoholics Anonymous, and [facility]. Patient will be discharged to [facility] and will be transported by ambulance for further psychiatric stabilization. Improvements in patient from the time of admission include: Improved affect. Risk factors: single, history of mental illness, presence of psychotic symptoms , prior history of suicide attempt. Protective factors: Currently no suicidal ideation, intent or plan. Has strong family support system. No history of service. Not in an occupation of social isolation, doesnt have multiple medical conditions, no family history of suicide, doesnt have access to firearms. No history of substance abuse. No history of alcohol abuse. Not a anniversary of a loss of a loved one. Currently future orientated. Patient engaged in treatment and compliant with medication. Laboratory Tests 01/29/19 01/29/19 02/02/19 17:34 17:34 09:06 WBC 8.6 RBC 4.83 Hgb 13.4 Hct 42 H MCV 86 MCH 28 MCHC 32 RDW 14 Plt Count 197 MPV 10.0 Neut % (Auto) 72.1 Lymph % (Auto) 19.6 [place] % (Auto) 6.3 Eos % (Auto) 1.3 Baso % (Auto) 0.7 Absolute Neuts (auto) 6.2 Absolute Lymphs (auto) 1.7 Absolute Monos (auto) 0.5 Absolute Eos (auto) 0.1 Absolute Basos (auto) 0.1 Absolute Nucleated RBC 0 Nucleated RBC % 0.1 Sodium 140 Potassium 3.7 Chloride 108 Carbon Dioxide 26 Anion Gap 6 BUN 8 Creatinine 0.77 Est GFR ( Amer) 93.5 Est GFR (Non-Af Amer) 77.3 BUN/Creatinine Ratio 10.4 Glucose 109 H Hemoglobin A1c Calcium 9.3 Total Bilirubin 0.50 AST 25 ALT 23 Alkaline Phosphatase 68 Total Protein 6.7 Albumin 4.0 Globulin 2.7 Albumin/Globulin Ratio 1.5 Triglycerides 78 Cholesterol 140 LDL Cholesterol 84 HDL Cholesterol 40.3 TSH 0.75 Salicylates < 2.50 Acetaminophen < 15 Serum Alcohol < 10 02/02/19 02/02/19 09:06 09:06 WBC 6.6 RBC 5.02 H Hgb 13.8 Hct 43 H MCV 85 MCH 28 MCHC 32 RDW 15 Plt Count 212 MPV 9.4 Neut % (Auto) 70.5 Lymph % (Auto) 19.7 [place] % (Auto) 7.1 Eos % (Auto) 1.8 Baso % (Auto) 0.9 Absolute Neuts (auto) 4.7 Absolute Lymphs (auto) 1.3 Absolute Monos (auto) 0.5 Absolute Eos (auto) 0.1 Absolute Basos (auto) 0.1 Absolute Nucleated RBC 0 Nucleated RBC % 0.1 Sodium Potassium Chloride Carbon Dioxide Anion Gap BUN Creatinine Est GFR ( Amer) Est GFR (Non-Af Amer) BUN/Creatinine Ratio Glucose Hemoglobin A1c 5.3 Calcium Total Bilirubin AST ALT Alkaline Phosphatase Total Protein Albumin Globulin Albumin/Globulin Ratio Triglycerides Cholesterol LDL Cholesterol HDL Cholesterol TSH Salicylates Acetaminophen Serum Alcohol Merits Inpatient Hospitalization: No Clear for Discharge: Low Utility of Inpt Care Discharge Planning - Discharge Planning Discharge Plan: Consider Longer Term Tx Recommendations for Continuing Care: Therapeutic Drug Levels Medications: Current Medications Acetaminophen (Tylenol Tab*) 650 mg PO Q4H PRN PRN Reason: PAIN or TEMP > 101 F Last Admin: 02/02/19 20:03 Dose: 650 mg Al Hydrox/Mg Hydrox/Simethicone (Maalox Plus*) 30 ml PO Q4H PRN PRN Reason: INDIGESTION Clozapine (Clozapine Tab*) 50 mg PO BID [facility] Last Admin: 02/06/19 20:24 Dose: 50 mg Diphenhydramine HCl (Benadryl Po*) 50 mg PO Q6H PRN PRN Reason: AGITATION/INSOMNIA Last Admin: 02/01/19 20:08 Dose: 50 mg Docusate Sodium (Colace Cap*) 100 mg PO BID [facility] Last Admin: 02/06/19 20:24 Dose: 100 mg Multivitamins (Theragran Tab*) 1 tab PO DAILY [facility] Last Admin: 02/06/19 08:32 Dose: Not Given Nicotine (Nicotine Inhaler*) 10 mg INH Q2H PRN PRN Reason: CRAVING Paroxetine HCl (Paxil Tab*) 20 mg PO DAILY [facility] Last Admin: 02/06/19 08:33 Dose: 20 mg Discharge Planning: Prescriptions provided for discharge [] Yes [x] No Going to [facility] Follow up care details as per social work arrangements. Patient response to discharge plan: [] eager for discharge [x] agreeable with discharge plan [] ambivalent about discharge [] disagrees with discharge today
[2019-02-07] MEDS: PARoxetine HCL TAB* 20 MG PO SCH (07:50)
[2019-02-07] MEDS: Vitamin THERAPEUTIC TAB PO SCH (07:50)
[2019-02-07] MEDS: CloZAPine TAB* 25 MG TAB PO SCH (07:50)
[2019-02-07] MEDS: Docusate CAP* 100 MG PO SCH (07:50)
[2019-02-07 08:06] VITALS: BP 124/73
[2019-02-08 07:58] LABS: Clozapine 35 ng/mL (>350); Clozapine & Norclozapine Level Unable to calculate ng/mL (>450); Norclozapine <25 ng/mL
== END 2019-02-07 08:40 | DRG 885 ==
LOC: ED 16:52 → BSU 01-30 17:02
PROVIDERS: ADMIT Psychiatry & Neurology Psychiatry; ATTEND Psychiatry & Neurology Psychiatry
DX: F20.9 Schizophrenia, unspecified (principal); N39.0 Urinary tract infection, site not specified; E66.9 Obesity, unspecified; G47.30 Sleep apnea, unspecified; E11.9 Type 2 diabetes mellitus without complications; R32 Unspecified urinary incontinence; B96.89 Other specified bacterial agents as the cause of diseases classified elsewhere; Z68.37 Body mass index [BMI] 37.0-37.9, adult; Z81.1 Family history of alcohol abuse and dependence
CPT/HCPCS: 36415; 80053; 80061; 80159; 80320; 80329; 83036; 84443; 85025; 99222; 99233; 99238; 99284; A9270-GY; G0480

== ENCOUNTER 2019-09-30 17:50 | Emergency (ER) | payer MEDICARE ==
--- NOTE | 2019-09-30 18:38 | ED ---
Psychiatric Complaint - HPI Summary HPI Summary: Patient is a 59 y/o F presenting to the ED for a psychiatric complaint. On triage, patient verbalized homicidal ideations about a resident named Nicole that lives at [place]. Patient admits auditory and visual hallucinations for the last 6 hours, which she describes as being "flooded with noises" and hearing voices telling her "to hit herself." Patient denies insomnia, SI, HI, changes in appetite, fever, headache, or myalgia. She denies any aggravating or alleviating factors. PMHx is significant for schizophrenia for which she takes medications. She admits to missing a dose of her medication in the last day. - History Of Current Complaint Chief Complaint: EDMentalHealth Time Seen by Provider: 09/30/19 18:19 Hx Obtained From: Patient Onset/Duration: Sudden Onset, Still Present Timing: Constant Severity Initially: Moderate Severity Currently: Moderate Aggravating Factor(s): Nothing Alleviating Factor(s): Nothing Associated Signs And Symptoms: Positive: Hallucinating Related History: Positive For: Prior Psychiatric Issues Has Suicidal: Denies: Thoughts Has Homicidal: Denies: Thoughts - Allergies/Home Medications Allergies/Adverse Reactions: Allergies Allergy/AdvReac Type Severity Reaction Status Date / Time ampicillin Allergy Swelling Verified 01/29/19 17:07 benztropine [From Cogentin] Allergy Diarrhea Verified 01/29/19 17:07 Home Medications: Home Medications Cholecalciferol TAB* [Vitamin D TAB*] 2,000 units PO DAILY 09/30/19 [History Confirmed 09/30/19] CloZAPine TAB* 50 mg PO QAM 09/30/19 [History Confirmed 09/30/19] CloZAPine TAB* 150 mg PO QPM 09/30/19 [History Confirmed 09/30/19] Glycopyrrolate TAB(NF) [Robinul TAB(NF)] 2 mg PO BID 09/30/19 [History Confirmed 09/30/19] Oxybutynin TAB* [Ditropan TAB*] 5 mg PO DAILY 09/30/19 [History Confirmed ] Senna TAB 8.6 mg* [Senokot 8.6 mg TAB*] 2 tab PO BEDTIME 09/30/19 [History Confirmed 09/30/19] Ziprasidone HCl [Geodon] 60 mg PO BID 09/30/19 [History Confirmed 09/30/19] PMH/Surg Hx/FS Hx/Imm Hx Previously Healthy: Yes Endocrine/Hematology History: Denies: Hx Anticoagulant Therapy, Hx Diabetes Cardiovascular History: Reports: Other Cardiovascular Problems/Disorders - arrhythmia Denies: Hx Hypercholesterolemia, Hx Hypertension, Hx Myocardial Infarction Respiratory History: Reports: Hx Sleep Apnea History: Reports: Other Problems/Disorders - incontinence Denies: Hx Dialysis Musculoskeletal History: Reports: Hx Arthritis Sensory History: Reports: Hx Contacts or Glasses Denies: Hx Legally Blind, Hx Deafness, Hx Hearing Aid Opthamlomology History: Reports: Hx Contacts or Glasses Denies: Hx Legally Blind EENT History: Denies: Hx Deafness Neurological History: Reports: Hx Headaches Denies: Hx Dementia, Hx Migraine Psychiatric History: Reports: Hx Anxiety, Hx Depression, Hx Panic Disorder, Hx Inpatient Treatment, Hx Community Mental Health Tx, Hx Schizophrenia, Hx Suicide Attempt, Other Psychiatric Issues/Disorders - Schizoaffective disorder Denies: Hx Eating Disorder, Hx of Violent Episodes Against Others - Cancer History Hx Chemotherapy: No Hx Radiation Therapy: No - Surgical History Surgical History: None Surgery Procedure, Year, and Place: None - Immunization History Date of Tetanus Vaccine: unk Date of Influenza Vaccine: unk Infectious Disease History: No Infectious Disease History: Denies: Traveled Outside the [place] in Last 30 Days - Family History Known Family History: Positive: Other - Depression Negative: Cardiac Disease, Diabetes - Social History Occupation: Works From/At Home Alcohol Use: Occasionally Alcohol Amount: states "once every other day" Hx Substance Use: Yes Substance Use Type: Reports: Other Substance Use Comment - Amount & Last Used: 5 years ago Hx Tobacco Use: Yes Smoking Status (MU): Former Smoker Type: Cigarettes Amount Used/How Often: pt has used no tobacco products in last 30days Review of Systems Positive: Other - Negative changes in appetite. Negative: Fever Negative: Myalgia Negative: Headache Psychological: Other - Positive auditory and visual hallucinations; negative SI , HI, or insomnia All Other Systems Reviewed And Are Negative: Yes Physical Exam - Summary Physical Exam Summary: VITAL SIGNS: Reviewed. GENERAL: Patient is a well-developed and nourished FEMALE who is lying comfortable in the stretcher. Patient is not in any acute respiratory distress. Disheveled and unkept. HEAD AND FACE: No signs of trauma. No ecchymosis, hematomas or skull depressions. No sinus tenderness. EYES: PERRLA, EOMI x 2, No injected conjunctiva, no nystagmus. EARS: Hearing grossly intact. Ear canals and tympanic membranes are within normal limits. MOUTH: Oropharynx within normal limits. NECK: Supple, trachea is midline, no adenopathy, no JVD, no carotid bruit, no c- spine tenderness, neck with full ROM. CHEST: Symmetric, no tenderness at palpation. LUNGS: Clear to auscultation bilaterally. No wheezing or crackles. CVS: Regular rate and rhythm, S1 and S2 present, no murmurs or gallops appreciated. ABDOMEN: Soft, non-tender. No signs of distention. No rebound, no guarding, and no masses palpated. Bowel sounds are normal. EXTREMITIES: FROM in all major joints, no edema, no cyanosis or clubbing. NEURO: Alert and oriented x 3. No acute neurological deficits. Speech is normal and follows commands. SKIN: Dry and warm. PSYCH: Depressed, quiet, and denies any suicidal thoughts or plan. No homicidal thoughts or plan. No signs of psychosis or pressure speech. No tangential speech. Triage Information Reviewed: Yes Vital Signs On Initial Exam: Initial Vitals Temp Pulse Resp BP Pulse Ox 98.4 F 95 16 166/97 96 09/30/19 18:17 09/30/19 18:17 09/30/19 18:17 09/30/19 18:17 09/30/19 18:17 Vital Signs Reviewed: Yes Procedures - Sedation Patient Received Moderate/Deep Sedation with Procedure: No Diagnostics - Vital Signs Vital Signs Temp Pulse Resp BP Pulse Ox 09/30/19 18:17 98.4 F 95 16 166/97 96 - Laboratory Result Diagrams: 09/30/19 18:40 09/30/19 18:40 Lab Statement: Any lab studies that have been ordered have been reviewed, and results considered in the medical decision making process. Re-Evaluation - Re-Evaluation First Eval Re-Evaluation Time: 18:30 Change: Unchanged Comment: At 18:30, patient is medically cleared for a mental health evaluation. Second Eval Re-Evaluation Time: 19:35 Change: Unchanged Comment: At 19:35, MH child custody evaluator reports that the patient refuses to have a mental health evaluation. Course/Dx - Course Assessment/Plan: Patient is a 59 y/o F presenting to the ED for a psychiatric complaint. On triage, patient verbalized homicidal ideations about a resident named Nicole that lives at [place]. Patient admits auditory and visual hallucinations for the last 6 hours, which she describes as being "flooded with noises" and hearing voices telling her "to hit herself." Patient denies insomnia , SI, HI, changes in appetite, fever, headache, or myalgia. She denies any aggravating or alleviating factors. PMHx is significant for schizophrenia for which she takes medications. She admits to missing a dose of her medication in the last day. Blood work w/o a significant abnormality except for the urine which is contaminated. We will send the urine for cultures. She is medically cleared. She is awaiting a MHE. Patient is hemodynamically stable and A+O x 3. Dr. Frank assessed the patient and he recommends for the patient to be discharged home. Follow-up with [facility]. - Differential Dx/Clinical Impression Differential Diagnosis/HQI/PQRI: Positive: Acute Psychosis, Anxiety, Depression Provider Diagnosis: Adjustment disorder, Mood disorder - Physician Notifications Discussed Care Of Patient With: Cedric Frank - At 20:44, child custody evaluator reports that the patients case was reviewed by Dr. Cedric Frank who will discharge the patient with a diagnosis of mood disorder. Time Discussed With Above Provider: 20:44 Instructed by Provider To: Other - Discharge Discharge ED - Sign-Out/Discharge Documenting (check all that apply): Patient Departure - Discharge - Discharge Plan Condition: Stable Disposition: HOME Referrals: Asher Interiano MD [Primary Care Provider] - - Billing Disposition and Condition Condition: STABLE Disposition: Home - Attestation Statements Document Initiated by Xin: Yes Documenting Scribe: Bettye Saxena Provider For Whom Xin is Documenting (Include Credential): Jorge Pantoja MD Scribe Attestation: Bettye Taylor scribed for Jorge Pantoja MD on 09/30/19 at 7228. Scribe Documentation Reviewed: Yes Provider Attestation: The documentation as recorded by the Bettye taylor accurately reflects the service I personally performed and the decisions made by me, Jorge Pantoja MD Status of Scribe Document: Viewed
[2019-09-30 18:52] LABS: ABS Basophils 0.1 10^3/ul (0-0.2); ABS Eosinophils 0.1 10^3/ul (0-0.6); ABS Lymphocytes 1.8 10^3/ul (1.0-4.8); ABS Monocytes 0.6 10^3/ul (0-0.8); ABS Neutrophils 7.4 10^3/ul (1.5-7.7); Hematocrit 38 % (35-47); Hemoglobin 12.4 g/dL (12.0-16.0); Lymphocyte % 18.1 %; Mean Corpuscular HGB Conc 33 g/dL (31-36); Mean Corpuscular Hemoglobin 28 pg (27-31); Mean Corpuscular Volume 85 fL (80-97); Mean Platelet Volume 9.2 fL (7.4-10.4); Platelet Count 226 10^3/uL (150-450); Red Blood Count 4.44 10^6 /uL (3.70-4.87); Red Cell Distribution Width 15 % (10-15)
[2019-09-30 19:08] LABS: ALT 14 U/L (7-52); AST 17 U/L (13-39); Albumin 3.8 g/dL (3.2-5.2); Albumin/Globulin Ratio 1.4 (1-3); Alkaline Phosphatase 85 U/L (34-104); Anion Gap 7 mmol/L (2-11); Blood Urea Nitrogen 19 mg/dL (6-24); CO2 Carbon Dioxide 26 mmol/L (22-32); Calcium 9.1 mg/dL (8.6-10.3); Chloride 108 mmol/L (101-111); EGFR African American 94.6 (>60); EGFR Non-African American 78.2 (>60); Globulin 2.8 g/dL (2-4); Glucose 114 mg/dL (70-100); Potassium 3.8 mmol/L (3.5-5.0); Sodium 141 mmol/L (135-145); Total Protein 6.6 g/dL (6.4-8.9)
[2019-09-30 19:21] LABS: Acetaminophen < 15 mcg/mL; Alcohol < 10 mg/dL (<10); Salicylate < 2.50 mg/dL (<30)
[2019-09-30 19:34] LABS: Urine Appearance Cloudy; Urine Bilirubin Negative (Negative); Urine Blood Negative (Negative); Urine Color Yellow; Urine Glucose Negative (Negative); Urine Ketones Trace (Negative); Urine Nitrite Positive (Negative); Urine Protein Negative (Negative); Urine Specific Gravity 1.019 (1.010-1.030); Urine Urobilinogen Negative (Negative)
[2019-09-30 19:37] LABS: TSH (Thyroid Stimulating Horm) 1.35 mcIU/mL (0.34-5.60)
[2019-09-30 19:39] LABS: Urine Bacteria 1+ (Absent); Urine Red Blood Cell 3+(>10/hpf) (Absent); Urine Squamous Epithelial Cell Present (Absent); Urine Transitional Epithelial Present (Absent); Urine White Blood Cell 3+(>20/hpf) (Absent)
[2019-09-30 20:06] LABS: Urine Benzodiazepine Screen None Detected (None Detect); Urine Opiates Screen None Detected (None Detect)
[2019-09-30 21:18] VITALS: BP 163/104
--- NOTE | 2019-10-03 10:42 | ED ---
Imaging and Labs Follow Up Follow Up Type: Labs/Cultures Labs/Culture Result: Urine culture growing >100k enterobacter cloacae. Patient Communication/Plan: Urine culture positive for UTI. Attempted to call pt. today at 1040. Pt. resides at a longterm. Counselor notes pt. is currently unavailable but he will give her a message to return call to the ER. Prescription for macrobid sent to pharmacy. Provider Diagnoses: Adjustment disorder, Mood disorder
== END 2019-09-30 21:17 | disposition home or self-care (01) ==
LOC: ED 17:50
DX: F43.20 Adjustment disorder, unspecified (principal); F39 Unspecified mood [affective] disorder; F20.9 Schizophrenia, unspecified; Z87.891 Personal history of nicotine dependence
CPT/HCPCS: 36415; 80053; 80307; 80320; 80329; 81003; 81015; 84443; 85025; 87077; 87086; 87186; 99283; G0480

== ENCOUNTER 2019-10-05 15:45 | Emergency (ER) | payer MEDICARE ==
--- NOTE | 2019-10-05 15:57 | ED ---
Psychiatric Complaint - HPI Summary HPI Summary: The patient is a 59 y/o F arriving by ambulance to [facility] with a chief complaint of auditory hallucinations onset last night. She reports that she was recently discharged from [facility] one week ago and has been dealing with her usual psychiatric issues well until last night while she was watching TV and she suddenly had a relapse of hearing unsettling voices telling her that her things were going to be stolen or that she should cause harm to herself. She denies SI or HI but notes that she was close to inflicting self-harm before EMS arrival because of the voices. She denies any physical complaints including fever, abdominal pain, or chest pain. She saw her PCP Dr. Kang today who sent here for evaluation. She is medication compliant. Patient states she is currently being treated for a UTI with Cipro. PMHx: schizophrenia, anxiety, depression, panic disorder, inpatient tx, suicide attempt. Former smoker, no EtOH, no substance use. Medications reviewed. Allergies noted. - History Of Current Complaint Chief Complaint: EDMentalHealth Time Seen by Provider: 10/05/19 15:48 Hx Obtained From: Patient Onset/Duration: Sudden Onset, Lasting Hours - last night, Still Present Timing: Constant Severity Initially: Moderate Severity Currently: Moderate Character: Fearful Aggravating Factor(s): Other - hearing voices Alleviating Factor(s): Nothing Associated Signs And Symptoms: Positive: Hallucinating Related History: Positive For: Prior Psychiatric Issues Has Suicidal: Denies: Thoughts Has Homicidal: Denies: Thoughts - Allergies/Home Medications Allergies/Adverse Reactions: Allergies Allergy/AdvReac Type Severity Reaction Status Date / Time ampicillin Allergy Swelling Verified 10/05/19 15:50 benztropine [From Cogentin] Allergy Diarrhea Verified 10/05/19 15:50 PMH/Surg Hx/FS Hx/Imm Hx Endocrine/Hematology History: Denies: Hx Anticoagulant Therapy, Hx Diabetes Cardiovascular History: Reports: Other Cardiovascular Problems/Disorders - arrhythmia Denies: Hx Hypercholesterolemia, Hx Hypertension, Hx Myocardial Infarction Respiratory History: Reports: Hx Sleep Apnea History: Reports: Other Problems/Disorders - incontinence Denies: Hx Dialysis Musculoskeletal History: Reports: Hx Arthritis Sensory History: Reports: Hx Contacts or Glasses Denies: Hx Legally Blind, Hx Deafness, Hx Hearing Aid Opthamlomology History: Reports: Hx Contacts or Glasses Denies: Hx Legally Blind Neurological History: Reports: Hx Headaches Denies: Hx Dementia, Hx Migraine Psychiatric History: Reports: Hx Anxiety, Hx Depression, Hx Panic Disorder, Hx Inpatient Treatment, Hx Community Mental Health Tx, Hx Schizophrenia, Hx Suicide Attempt, Other Psychiatric Issues/Disorders - Schizoaffective disorder Denies: Hx Eating Disorder, Hx of Violent Episodes Against Others - Cancer History Hx Chemotherapy: No Hx Radiation Therapy: No - Surgical History Surgical History: None Surgery Procedure, Year, and Place: None - Immunization History Date of Tetanus Vaccine: unk Date of Influenza Vaccine: unk Infectious Disease History: No Infectious Disease History: Denies: Traveled Outside the [place] in Last 30 Days - Family History Known Family History: Positive: Other - Depression Negative: Cardiac Disease, Diabetes - Social History Alcohol Use: None Alcohol Amount: states "once every other day" Hx Substance Use: Yes Substance Use Type: Reports: Other Substance Use Comment - Amount & Last Used: 5 years ago Hx Tobacco Use: Yes Smoking Status (MU): Former Smoker Type: Cigarettes Amount Used/How Often: pt has used no tobacco products in last 30days Review of Systems Negative: Fever Negative: Chest Pain Negative: Abdominal Pain Positive: Other - auditory hallucinations; Negative: SI, HI All Other Systems Reviewed And Are Negative: Yes Physical Exam - Summary Physical Exam Summary: Constitutional: Well-developed, Well-nourished, Alert. (-) Distressed Skin: Warm, Dry HENT: Normocephalic; Atraumatic Eyes: Conjunctiva normal Neck: Musculoskeletal ROM normal neck. (-) JVD, (-) Stridor, (-) Tracheal deviation Cardio: Rhythm regular, rate normal, Heart sounds normal; Intact distal pulses; Radial pulses are 2+ and symmetric. (-) Murmur Pulmonary/Chest wall: Effort normal. (-) Respiratory distress, (-) Wheezes, (-) Rales Abd: Soft, (-) tenderness, (-) Distension, (-) Guarding, (-) Rebound Musculoskeletal: (-) Edema Lymph: (-) Cervical adenopathy Neuro: Alert, Oriented x3 Psych: Pressured speech, Otherwise mood and affect Normal Triage Information Reviewed: Yes Vital Signs On Initial Exam: Initial Vitals Temp Pulse Resp BP Pulse Ox 98.5 F 80 16 156/97 99 10/05/19 15:47 12/18/19 15:47 10/05/19 15:47 10/05/19 15:47 10/05/19 15:47 Vital Signs Reviewed: Yes Procedures - Sedation Patient Received Moderate/Deep Sedation with Procedure: No Diagnostics - Vital Signs Vital Signs Temp Pulse Resp BP Pulse Ox 10/05/19 15:47 98.5 F 80 16 156/97 99 - Laboratory Result Diagrams: 10/05/19 16:13 10/05/19 16:13 Lab Statement: Any lab studies that have been ordered have been reviewed, and results considered in the medical decision making process. Re-Evaluation - Re-Evaluation First Eval Re-Evaluation Time: 15:55 Comment: Patient is medically clear for MHE. Course/Dx - Course Course Of Treatment: Patient is here with psychosis and auditory hallucinations. Patient was medically cleared by myself with normal labs including a UA. Patient was seen by the psychiatric team and they recommended outpatient treatment. - Differential Dx/Clinical Impression Provider Diagnosis: Schizophrenia - Physician Notifications Discussed Care Of Patient With: Marco Donovan - mental health cns Time Discussed With Above Provider: 20:40 Instructed by Provider To: Other - Marco reports that Dr. Geiger has evaluated the patient and has determined she is safe for discharge with outpatient treatment, diagnosis of schizophrenia Discharge ED - Sign-Out/Discharge Documenting (check all that apply): Patient Departure - Patient will be discharged home by [facility] staff. - Discharge Plan Condition: Stable Disposition: HOME Patient Education Materials: Schizophrenia (ED) Referrals: Asher Interiano MD [Primary Care Provider] - Additional Instructions: Per completion of a mental health evaluation, you are cleared for release and do not require inpatient psychiatric hospitalization at this time. Please go to nearest emergency room or call 911 if safety concerns arise or condition worsens. Important Phone Numbers: [facility] ph:[phone] Suicide Prevention and Crisis Services ph:[phone] National Suicide Prevention Lifeline ph:[phone] (7061) [facility] ph:[phone] Alcoholics Anonymous ph: [facility] ph:[phone] [place] [employer] ph:[phone] Recommendation: Follow care plan developed by ACT Team, take medications as prescribed, return to ED if needed. - Billing Disposition and Condition Condition: STABLE Disposition: Home - Attestation Statements Document Initiated by Xin: Yes Documenting Scribe: Maura Hamm Provider For Whom Xin is Documenting (Include Credential): Dr. Silas Hernández MD Scribe Attestation: Maura Taylor, scribed for Dr. Silas Hernández MD on 10/05/19 at 2115. Scribe Documentation Reviewed: Yes Provider Attestation: The documentation as recorded by the Maura taylor accurately reflects the service I personally performed and the decisions made by me, Dr. Silas Hernández MD Status of Scribe Document: Viewed
[2019-10-05 16:24] LABS: ABS Basophils 0.1 10^3/ul (0-0.2); ABS Eosinophils 0.1 10^3/ul (0-0.6); ABS Monocytes 0.6 10^3/ul (0-0.8); ABS Neutrophils 7.5 10^3/ul (1.5-7.7); Eosinophil % 0.9 %; Hematocrit 40 % (35-47); Hemoglobin 13.1 g/dL (12.0-16.0); Lymphocyte % 19.5 %; Mean Corpuscular HGB Conc 33 g/dL (31-36); Mean Corpuscular Hemoglobin 28 pg (27-31); Mean Corpuscular Volume 85 fL (80-97); Mean Platelet Volume 9.1 fL (7.4-10.4); Platelet Count 246 10^3/uL (150-450); Red Blood Count 4.62 10^6 /uL (3.70-4.87); Red Cell Distribution Width 15 % (10-15); White Blood Count 10.2 10^3/uL (3.5-10.8)
[2019-10-05 16:38] LABS: ALT 14 U/L (7-52); AST 16 U/L (13-39); Albumin 4.1 g/dL (3.2-5.2); Albumin/Globulin Ratio 1.2 (1-3); Alkaline Phosphatase 88 U/L (34-104); Anion Gap 7 mmol/L (2-11); BUN/Creatinine Ratio 18.8 (8-20); Blood Urea Nitrogen 15 mg/dL (6-24); CO2 Carbon Dioxide 29 mmol/L (22-32); Calcium 9.6 mg/dL (8.6-10.3); Chloride 106 mmol/L (101-111); EGFR African American 89.1 (>60); EGFR Non-African American 73.7 (>60); Globulin 3.3 g/dL (2-4); Glucose 96 mg/dL (70-100); Potassium 3.8 mmol/L (3.5-5.0); Sodium 142 mmol/L (135-145); Total Protein 7.4 g/dL (6.4-8.9)
[2019-10-05 16:59] LABS: Acetaminophen < 15 mcg/mL; Alcohol < 10 mg/dL (<10); Salicylate < 2.50 mg/dL (<30)
[2019-10-05 18:07] LABS: Urine Appearance Clear; Urine Bilirubin Negative (Negative); Urine Blood Negative (Negative); Urine Color Straw; Urine Glucose Negative (Negative); Urine Ketones Negative (Negative); Urine Nitrite Negative (Negative); Urine Protein Negative (Negative); Urine Specific Gravity 1.002 (1.010-1.030); Urine Urobilinogen Negative (Negative)
[2019-10-05 18:17] LABS: Urine Benzodiazepine Screen None Detected (None Detect); Urine Opiates Screen None Detected (None Detect)
[2019-10-05 21:24] VITALS: BP 134/86
== END 2019-10-05 21:35 | disposition home or self-care (01) ==
LOC: ED 15:45
DX: F20.9 Schizophrenia, unspecified (principal); F41.9 Anxiety disorder, unspecified; F32.9 Major depressive disorder, single episode, unspecified; Z79.899 Other long term (current) drug therapy; Z87.891 Personal history of nicotine dependence
CPT/HCPCS: 36415; 80053; 80307; 80320; 80329; 81003; 85025; 99284; G0480

== ENCOUNTER 2019-10-11 16:16 | Emergency (ER) | payer MEDICARE ==
--- NOTE | 2019-10-11 16:36 | ED ---
Psychiatric Complaint - HPI Summary HPI Summary: This pt is a 59 y/o female, with hx of schizophrenia, presenting to [facility] via EMS from [facility] c/o auditory hallucinations. Pt reports she has been having these auditory hallucinations for "a long long long time ago." She also describes SI thoughts with a plan to take her Tylenol pills but does not intent to carry out this plan. Pt notes hx of suicide attempt 30 years ago by overdosing. She denies HI thoughts/plan. Denies physical pain. Pt states she fell 3 days ago and sustained abrasion to nose. She also reports diarrhea and has had 2 episodes of diarrhea. Pt admits to having an ACT team in place to help her and states they kept encouraging to not call emergency. Pt was recently discharged from [facility]. Medications reviewed. Allergies noted. - History Of Current Complaint Time Seen by Provider: 10/11/19 16:30 Hx Obtained From: Patient Onset/Duration: Lasting Weeks, Still Present Timing: Weeks Severity Currently: Moderate Character: Manic, Depressed Aggravating Factor(s): Nothing Alleviating Factor(s): Nothing Associated Signs And Symptoms: Positive: Hallucinating Related History: Positive For: Prior Psychiatric Issues Has Suicidal: Reports: Thoughts, With A Plan Has Homicidal: Denies: Thoughts, With A Plan - Allergies/Home Medications Allergies/Adverse Reactions: Allergies Allergy/AdvReac Type Severity Reaction Status Date / Time ampicillin Allergy Swelling Verified 10/05/19 15:50 benztropine [From Cogentin] Allergy Diarrhea Verified 10/05/19 15:50 Home Medications: Home Medications CloZAPine TAB* 50 mg PO QAM 10/11/19 [History Confirmed 10/11/19] CloZAPine TAB* 100 mg PO QAM 10/11/19 [History Confirmed 10/11/19] CloZAPine TAB* 300 mg PO QPM 10/11/19 [History Confirmed 10/11/19] Haloperidol TAB* [Haldol TAB*] 5 mg PO .Q4-6H PRN 10/11/19 [History Confirmed ] Nitrofurantoin Macrocrystals* [Macrodantin 100 mg*] 100 mg PO BID 10/11/19 [ History Confirmed 10/11/19] Oxybutynin XL TAB* [Ditropan XL TAB*] 5 mg PO DAILY 10/11/19 [History Confirmed 10/11/19] Polyethylene Glycol 3350* [Miralax*] 34 gm PO DAILY 10/11/19 [History Confirmed 10/11/19] Ziprasidone HCl [Geodon] 60 mg PO 0800,1700 10/11/19 [History Confirmed 10/11/19 ] PMH/Surg Hx/FS Hx/Imm Hx Endocrine/Hematology History: Denies: Hx Anticoagulant Therapy, Hx Diabetes Cardiovascular History: Reports: Other Cardiovascular Problems/Disorders - arrhythmia Denies: Hx Hypercholesterolemia, Hx Hypertension, Hx Myocardial Infarction Respiratory History: Reports: Hx Sleep Apnea History: Reports: Other Problems/Disorders - incontinence Denies: Hx Dialysis Musculoskeletal History: Reports: Hx Arthritis Sensory History: Reports: Hx Contacts or Glasses Denies: Hx Legally Blind, Hx Deafness, Hx Hearing Aid Opthamlomology History: Reports: Hx Contacts or Glasses Denies: Hx Legally Blind Neurological History: Reports: Hx Headaches Denies: Hx Dementia, Hx Migraine Psychiatric History: Reports: Hx Anxiety, Hx Depression, Hx Panic Disorder, Hx Inpatient Treatment, Hx Community Mental Health Tx, Hx Schizophrenia, Hx Suicide Attempt, Other Psychiatric Issues/Disorders - Schizoaffective disorder Denies: Hx Eating Disorder, Hx Post Traumatic Stress Disorder, Hx Bipolar Disorder, Hx of Violent Episodes Against Others - Cancer History Hx Chemotherapy: No Hx Radiation Therapy: No - Surgical History Surgical History: Yes - Immunization History Date of Tetanus Vaccine: unk Date of Influenza Vaccine: unk - Family History Known Family History: Positive: Other - Depression Negative: Cardiac Disease, Diabetes - Social History Alcohol Use: None Alcohol Amount: states "once every other day" Hx Substance Use: Yes Substance Use Type: Reports: Other Substance Use Comment - Amount & Last Used: 5 years ago Hx Tobacco Use: Yes Smoking Status (MU): Former Smoker Type: Cigarettes Amount Used/How Often: pt has used no tobacco products in last 30days Review of Systems Negative: Fever Cardiovascular: Negative Positive: Diarrhea Musculoskeletal: Negative Psychological: Other - POSITIVE: hallucinations, SI Positive: Depressed. Negative: Other - NEGATIVE: HI All Other Systems Reviewed And Are Negative: Yes Physical Exam - Summary Physical Exam Summary: Constitutional: Well-developed, Well-nourished, Alert. (-) Distressed Skin: Warm, Dry HENT: Normocephalic; Old abrasion to the nose. Eyes: Conjunctiva normal Neck: Musculoskeletal ROM normal neck. (-) JVD, (-) Stridor, (-) Tracheal deviation Cardio: Rhythm regular, rate normal, Heart sounds normal; Intact distal pulses; The pedal pulses are 2+ and symmetric. Radial pulses are 2+ and symmetric. (-) Murmur Pulmonary/Chest wall: Effort normal. (-) Respiratory distress, (-) Wheezes, (-) Rales Abd: Soft, (-) tenderness, (-) Distension, (-) Guarding, (-) Rebound Musculoskeletal: (-) Edema Lymph: (-) Cervical adenopathy Neuro: Alert, Oriented x3 Psych: Patient appears to hear voices in the room, flat affect. Triage Information Reviewed: Yes Vital Signs Reviewed: Yes Procedures - Sedation Patient Received Moderate/Deep Sedation with Procedure: No Diagnostics - Laboratory Result Diagrams: 10/11/19 16:49 10/11/19 16:49 Lab Statement: Any lab studies that have been ordered have been reviewed, and results considered in the medical decision making process. Course/Dx - Course Course Of Treatment: Patient is here with worsening psychosis with thoughts of killing herself. Patient states she would take Tylenol but then states she would not kill herself. Patient is well-known to the hospital and is in the ACT team. Patient was medically cleared by myself. Patient was signed out to Dr. Miranda pending mental health evaluation - Differential Dx/Clinical Impression Provider Diagnosis: Schizophrenia, Auditory hallucinations, Psychosis Discharge ED - Sign-Out/Discharge Documenting (check all that apply): Sign-Out Patient Signing out patient TO: Ciera Miranda - pending MHE and dispo - Discharge Plan Condition: Stable Referrals: Asher Interiano MD [Primary Care Provider] - - Billing Disposition and Condition Condition: STABLE - Attestation Statements Document Initiated by Scribe: Yes Documenting Scribe: Yudi Roman Provider For Whom Lizetteibami is Documenting (Include Credential): Silas Hernández MD Scribe Attestation: Yudi Taylor, scribed for Silas Hernández MD on 10/11/19 at 2126. Scribe Documentation Reviewed: Yes Provider Attestation: The documentation as recorded by the Yudi taylor accurately reflects the service I personally performed and the decisions made by me, Silas Hernández MD Status of Scribe Document: Viewed
[2019-10-11 17:01] LABS: ABS Eosinophils 0.1 10^3/ul (0-0.6); ABS Lymphocytes 1.5 10^3/ul (1.0-4.8); ABS Monocytes 0.8 10^3/ul (0-0.8); ABS Neutrophils 8.7 10^3/ul (1.5-7.7); Eosinophil % 0.8 %; Hematocrit 39 % (35-47); Hemoglobin 12.7 g/dL (12.0-16.0); Lymphocyte % 13.2 %; Mean Corpuscular HGB Conc 33 g/dL (31-36); Mean Corpuscular Hemoglobin 28 pg (27-31); Mean Corpuscular Volume 86 fL (80-97); Mean Platelet Volume 9.5 fL (7.4-10.4); Platelet Count 240 10^3/uL (150-450); Red Cell Distribution Width 15 % (10-15); White Blood Count 11.1 10^3/uL (3.5-10.8)
[2019-10-11 17:07] LABS: Urine Appearance Cloudy; Urine Bilirubin Negative (Negative); Urine Blood Negative (Negative); Urine Color Yellow; Urine Glucose Negative (Negative); Urine Ketones Negative (Negative); Urine Nitrite Negative (Negative); Urine Protein Negative (Negative); Urine Specific Gravity 1.021 (1.010-1.030); Urine Urobilinogen Negative (Negative)
[2019-10-11 17:11] LABS: Urine Bacteria Absent (Absent); Urine Red Blood Cell Absent (Absent); Urine Squamous Epithelial Cell Present (Absent); Urine White Blood Cell 2+(11-20/hpf) (Absent)
[2019-10-11 17:12] LABS: ALT 15 U/L (7-52); AST 18 U/L (13-39); Albumin 4.1 g/dL (3.2-5.2); Albumin/Globulin Ratio 1.3 (1-3); Alkaline Phosphatase 85 U/L (34-104); Anion Gap 6 mmol/L (2-11); BUN/Creatinine Ratio 24.3 (8-20); Blood Urea Nitrogen 18 mg/dL (6-24); CO2 Carbon Dioxide 25 mmol/L (22-32); Calcium 9.3 mg/dL (8.6-10.3); Chloride 109 mmol/L (101-111); EGFR African American 97.5 (>60); EGFR Non-African American 80.6 (>60); Globulin 3.1 g/dL (2-4); Glucose 116 mg/dL (70-100); Potassium 4.3 mmol/L (3.5-5.0); Sodium 140 mmol/L (135-145); Total Protein 7.2 g/dL (6.4-8.9)
[2019-10-11 17:24] LABS: Urine Benzodiazepine Screen None Detected (None Detect); Urine Opiates Screen None Detected (None Detect)
[2019-10-11 17:33] LABS: Acetaminophen < 15 mcg/mL; Alcohol < 10 mg/dL (<10); Salicylate < 2.50 mg/dL (<30)
--- NOTE | 2019-10-11 21:49 | ED ---
Progress - Progress Note Progress Note: Patient signed out from Dr. Hernández shift change 10/11/19 22:00. Awaiting psychiatric evaluation. Pending disposition. Course/Dx - Diagnoses Provider Diagnoses: Schizophrenia - Provider Notifications Time Discussed With Above Provider: 03:02 Instructed by Provider To: Other - Psychiatric floor helper reviewed case with Dr. Kaur. Patient will be discharged. Discharge ED - Sign-Out/Discharge Documenting (check all that apply): Patient Departure, Receiving Sign-Out Receiving patient FROM: Silas Hernández - Discharge Plan Condition: Stable Disposition: HOME Referrals: Asher Interiano MD [Primary Care Provider] - - Billing Disposition and Condition Condition: STABLE Disposition: Home - Attestation Statements Document Initiated by Scribe: Yes Documenting Scribe: Farrah Nix Provider For Whom Xin is Documenting (Include Credential): Ciera Miranda MD Scribe Attestation: Farrah Taylor, scribed for Ciera Miranda MD on 10/12/19 at 0619. Scribe Documentation Reviewed: Yes Provider Attestation: The documentation as recorded by the Farrah taylor accurately reflects the service I personally performed and the decisions made by me, Ciera Miranda MD Status of Scribe Document: Viewed
[2019-10-12 03:41] VITALS: BP 161/96
== END 2019-10-12 03:35 | disposition home or self-care (01) ==
LOC: ED 16:16
DX: F20.9 Schizophrenia, unspecified (principal); F29 Unspecified psychosis not due to a substance or known physiological condition; R19.7 Diarrhea, unspecified; S00.31XA Abrasion of nose, initial encounter; W19.XXXA Unspecified fall, initial encounter; Y92.9 Unspecified place or not applicable; Z88.0 Allergy status to penicillin; Z88.8 Allergy status to other drugs, medicaments and biological substances; Z87.891 Personal history of nicotine dependence
CPT/HCPCS: 36415; 80053; 80307; 80320; 80329; 81003; 81015; 85025; 87086; 99285; G0480

== ENCOUNTER 2019-10-13 14:47 | Emergency (ER) | payer MEDICARE ==
--- NOTE | 2019-10-13 15:22 | ED ---
Psychiatric Complaint - HPI Summary HPI Summary: This pt is a 59 y/o female presenting to [facility] via EMS from [facility] on a 9.41 for auditory and visual hallucinations. Pt reports these hallucinations are making her feel suicidal. Denies SI plan. Denies HI. Pt recently seen for the same symptoms in the ED 2 days ago. PMHx includes schizophrenia. Pt does not know what medications she takes. Per EMR her medications include Geodon, Haldol. - History Of Current Complaint Time Seen by Provider: 10/13/19 15:02 Hx Obtained From: Patient Onset/Duration: Lasting Days, Still Present Timing: Days Severity Currently: Moderate Aggravating Factor(s): Nothing Alleviating Factor(s): Nothing Associated Signs And Symptoms: Positive: Hallucinating Related History: Positive For: Prior Psychiatric Issues Has Suicidal: Reports: Thoughts. Denies: With A Plan Has Homicidal: Denies: Thoughts, With A Plan - Allergies/Home Medications Allergies/Adverse Reactions: Allergies Allergy/AdvReac Type Severity Reaction Status Date / Time ampicillin Allergy Swelling Verified 10/05/19 15:50 benztropine [From Cogentin] Allergy Diarrhea Verified 10/05/19 15:50 PMH/Surg Hx/FS Hx/Imm Hx Endocrine/Hematology History: Denies: Hx Anticoagulant Therapy, Hx Diabetes Cardiovascular History: Reports: Other Cardiovascular Problems/Disorders - arrhythmia Denies: Hx Hypercholesterolemia, Hx Hypertension, Hx Myocardial Infarction Respiratory History: Reports: Hx Sleep Apnea History: Reports: Other Problems/Disorders - incontinence Denies: Hx Dialysis Musculoskeletal History: Reports: Hx Arthritis Sensory History: Reports: Hx Contacts or Glasses Denies: Hx Legally Blind, Hx Deafness, Hx Hearing Aid Opthamlomology History: Reports: Hx Contacts or Glasses Denies: Hx Legally Blind Neurological History: Reports: Hx Headaches Denies: Hx Dementia, Hx Migraine Psychiatric History: Reports: Hx Anxiety, Hx Depression, Hx Panic Disorder, Hx Inpatient Treatment, Hx Community Mental Health Tx, Hx Schizophrenia, Hx Suicide Attempt - " ONce when I was 31, by O/D", Other Psychiatric Issues/ Disorders - Schizoaffective disorder Denies: Hx Eating Disorder, Hx Post Traumatic Stress Disorder, Hx Bipolar Disorder, Hx of Violent Episodes Against Others - Cancer History Hx Chemotherapy: No Hx Radiation Therapy: No - Immunization History Date of Tetanus Vaccine: unk Date of Influenza Vaccine: unk - Family History Known Family History: Positive: Other - Depression Negative: Cardiac Disease, Diabetes - Social History Alcohol Use: None Alcohol Amount: 0 Hx Substance Use: Yes Substance Use Type: Reports: Other Substance Use Comment - Amount & Last Used: previous marijuana use, no longer using Hx Tobacco Use: Yes Smoking Status (MU): Former Smoker Type: Cigarettes Amount Used/How Often: pt has used no tobacco products in last 30days Review of Systems Negative: Fever Cardiovascular: Negative Respiratory: Negative Gastrointestinal: Negative Psychological: Other - POSITIVE: auditory and visual hallucinations, SI thoughts Positive: Depressed. Negative: Other - NEGATIVE: HI All Other Systems Reviewed And Are Negative: Yes Physical Exam - Summary Physical Exam Summary: Constitutional: Well-developed, Well-nourished, Alert. (-) Distressed Skin: Warm, Dry HENT: Normocephalic; Atraumatic Eyes: Conjunctiva normal Neck: Musculoskeletal ROM normal neck Cardio: Rhythm regular, rate normal, Heart sounds saud Pulmonary/Chest wall: Effort normal. (-) Respiratory distress Abd: Soft, (-) tenderness, Musculoskeletal: (-) Edema Neuro: Alert, Oriented x3 Psych: Withdrawn Triage Information Reviewed: Yes Vital Signs Reviewed: Yes Procedures - Sedation Patient Received Moderate/Deep Sedation with Procedure: No Diagnostics - Laboratory Result Diagrams: 10/13/19 15:30 10/13/19 15:30 Lab Statement: Any lab studies that have been ordered have been reviewed, and results considered in the medical decision making process. Course/Dx - Course Course Of Treatment: 59 y/o F w schizophrenia p/w hallucinations. - NAD, no SI HI. Plan for MHE. - Differential Dx/Clinical Impression Provider Diagnosis: Hallucinations Discharge ED - Sign-Out/Discharge Documenting (check all that apply): Sign-Out Patient Signing out patient TO: Silas Hernández - pending MHE and dispo - Discharge Plan Condition: Stable Referrals: Asher Interiano MD [Primary Care Provider] - - Billing Disposition and Condition Condition: STABLE - Attestation Statements Document Initiated by Scribe: Yes Documenting Scribe: Yudi Roman Provider For Whom Scribe is Documenting (Include Credential): Jerry ePpper MD Scribe Attestation: Yudi Taylor, scribed for Jerry Pepper MD on 10/13/19 at 1851. Scribe Documentation Reviewed: Yes Provider Attestation: The documentation as recorded by the scribe, Yudi Roman accurately reflects the service I personally performed and the decisions made by me, Jerry Pepper MD Status of Scribe Document: Viewed
[2019-10-13 15:46] LABS: ABS Eosinophils 0.1 10^3/ul (0-0.6); ABS Lymphocytes 1.7 10^3/ul (1.0-4.8); ABS Monocytes 0.6 10^3/ul (0-0.8); ABS Neutrophils 6.3 10^3/ul (1.5-7.7); Eosinophil % 1.5 %; Hematocrit 38 % (35-47); Hemoglobin 12.5 g/dL (12.0-16.0); Lymphocyte % 19.1 %; Mean Corpuscular HGB Conc 33 g/dL (31-36); Mean Corpuscular Hemoglobin 28 pg (27-31); Mean Corpuscular Volume 87 fL (80-97); Mean Platelet Volume 9.3 fL (7.4-10.4); Nucleated Red Blood Cells % 0.2; Platelet Count 231 10^3/uL (150-450); Red Blood Count 4.43 10^6 /uL (3.70-4.87); Red Cell Distribution Width 15 % (10-15); White Blood Count 8.7 10^3/uL (3.5-10.8)
[2019-10-13 16:02] LABS: ALT 13 U/L (7-52); AST 16 U/L (13-39); Albumin 3.8 g/dL (3.2-5.2); Albumin/Globulin Ratio 1.4 (1-3); Alkaline Phosphatase 83 U/L (34-104); Anion Gap 4 mmol/L (2-11); BUN/Creatinine Ratio 25.3 (8-20); Blood Urea Nitrogen 21 mg/dL (6-24); CO2 Carbon Dioxide 29 mmol/L (22-32); Chloride 109 mmol/L (101-111); EGFR African American 85.4 (>60); EGFR Non-African American 70.6 (>60); Globulin 2.8 g/dL (2-4); Glucose 127 mg/dL (70-100); Potassium 4.1 mmol/L (3.5-5.0); Sodium 142 mmol/L (135-145); Total Protein 6.6 g/dL (6.4-8.9)
[2019-10-13 16:05] LABS: HCG Pregnancy < 0.60 mIU/mL
[2019-10-13 16:24] LABS: Acetaminophen < 15 mcg/mL; Alcohol < 10 mg/dL (<10); Salicylate < 2.50 mg/dL (<30)
[2019-10-13 16:37] LABS: TSH (Thyroid Stimulating Horm) 1.01 mcIU/mL (0.34-5.60)
[2019-10-13 20:55] LABS: Urine Appearance Clear; Urine Bilirubin Negative (Negative); Urine Blood Negative (Negative); Urine Color Yellow; Urine Glucose Negative (Negative); Urine Ketones Negative (Negative); Urine Nitrite Negative (Negative); Urine Protein Negative (Negative); Urine Specific Gravity 1.013 (1.010-1.030); Urine Urobilinogen Negative (Negative)
[2019-10-13 21:08] LABS: Urine Benzodiazepine Screen None Detected (None Detect); Urine Opiates Screen None Detected (None Detect)
[2019-10-13] MEDS ORDERED: Ziprasidone CAP* 80 MG PO ONE (23:31)
[2019-10-14] MEDS: CloZAPine TAB* 100 MG TAB PO ONE (00:09)
[2019-10-14] MEDS: Haloperidol TAB* 5 MG PO ONE (00:09)
[2019-10-14] MEDS: Ziprasidone * 20 MG CAP (generic Geodon) PO ONE (00:10)
--- NOTE | 2019-10-14 03:27 | ED ---
Progress - Progress Note Progress Note: Receiving sign-out from Dr. Pepper at 1900 pending MHE. MHE will transfer the patient to [facility], per Dr. Cantu, Psychiatry. Patient remained stable throughout. Patient will be signed out to Dr. Pepper pending transfer at shift change 0700 on 10/14/19. Course/Dx - Course Course Of Treatment: 59 y/o F w schizophrenia p/w hallucinations. - NAD, no SI HI. Plan for MHE. Patient was signed out to myself by Dr. Pepper. Patient was he vomited by the mental health team and they recommended transfer to [facility]. Patient was not successfully transferred overnight and patient was signed out back to Dr. Pepper. - Diagnoses Provider Diagnoses: Schizophrenia Discharge ED - Sign-Out/Discharge Documenting (check all that apply): Sign-Out Patient Signing out patient TO: Jerry Pepper - At shift change 0700 - Discharge Plan Condition: Stable Disposition: PSYCHIATRIC FACILITY-OTHER Referrals: Asher Interiano MD [Primary Care Provider] - - Billing Disposition and Condition Condition: STABLE Disposition: Psychiatric Facility Other - Attestation Statements Document Initiated by Scribe: Yes Documenting Scribe: Parmjit Lewis Provider For Whom Scribe is Documenting (Include Credential): Silas Hernández MD Scribe Attestation: Parmjit Taylor, scribed for Silas Hernández MD on 10/14/19 at 0514. Scribe Documentation Reviewed: Yes Provider Attestation: The documentation as recorded by the Parmjit taylor accurately reflects the service I personally performed and the decisions made by me, Silas Hernández MD Status of Scribe Document: Viewed
[2019-10-14 03:37] VITALS: BP 109/68
--- NOTE | 2019-10-14 07:15 | ED ---
Progress - Progress Note Progress Note: This pt is a sign out from Dr. Hernández to Dr. Pepper at shift change on 10/14 at 0700 pending transfer to another psychiatric facility. EKG at 10:50 Rate: 76 bpm Rhythm: sinus rhythm No STEMI. 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 Second Eval Re-Evaluation Time: 10:43 Comment: Dr. Frank, psychiatrist, states we are waiting for legal papers to be faxed. Course/Dx - Diagnoses Provider Diagnoses: Schizophrenia - Provider Notifications Discussed Care Of Patient With: Dr. Woodard Time Discussed With Above Provider: 12:06 Instructed by Provider To: Other - Discussed with Dr. Woodard, pyschiatrist, who accepts pt for transfer to [facility]. Discharge ED - Sign-Out/Discharge Documenting (check all that apply): Patient Departure - Transfer to [facility], Receiving Sign-Out Receiving patient FROM: Silas Hernández - Discharge Plan Condition: Stable Disposition: PSYCHIATRIC FACILITY-[facility] Referrals: Asher Interiano MD [Primary Care Provider] - - Attestation Statements Document Initiated by Scribe: Yes Documenting Scribe: Yudi Roman Provider For Whom Scribe is Documenting (Include Credential): Jerry Pepper MD Scribe Attestation: Yudi Taylor, scribed for Jerry Pepper MD on 10/14/19 at 1205. Status of Scribe Document: Ready
--- NOTE | 2019-10-14 13:01 | PN ---
ED Psychiatric Progress Note Date of Service: 10/14/19 Subjective: ED day #1 for this 59 y.o. single, chronically mentally ill white female with a history of schizophrenia, recently discharged from prolonged [facility] Hospital[facility] at [facility], arriving now with command AH to harm self. Patient endorses SI. Objective: middle aged, overweight white female; anxious and distressed. Positive AH and SI. Assessment: Schizophrenia Plan: Admit back to [facility] on 2PC legal status. Vital Signs Temp Pulse Resp BP Pulse Ox 97.4 F 72 14 109/68 96 10/14/19 03:37 10/14/19 03:37 10/14/19 03:37 10/14/19 03:37 10/14/19 03:37 Lab Results - Entire Visit 10/13/19 10/13/19 10/13/19 20:40 20:40 15:30 WBC RBC Hgb Hct MCV MCH MCHC RDW Plt Count MPV Neut % (Auto) Lymph % (Auto) [place] % (Auto) Eos % (Auto) Baso % (Auto) Absolute Neuts (auto) Absolute Lymphs (auto) Absolute Monos (auto) Absolute Eos (auto) Absolute Basos (auto) Absolute Nucleated RBC Nucleated RBC % Sodium 142 Potassium 4.1 Chloride 109 Carbon Dioxide 29 Anion Gap 4 BUN 21 Creatinine 0.83 Est GFR ( Amer) 85.4 Est GFR (Non-Af Amer) 70.6 BUN/Creatinine Ratio 25.3 H Glucose 127 H Calcium 9.0 Total Bilirubin 0.30 AST 16 ALT 13 Alkaline Phosphatase 83 Total Protein 6.6 Albumin 3.8 Globulin 2.8 Albumin/Globulin Ratio 1.4 TSH 1.01 Beta HCG, Quant < 0.60 Urine Color Yellow Urine Appearance Clear Urine pH 6.0 Ur Specific [place] 1.013 Urine Protein Negative Urine Ketones Negative Urine Blood Negative Urine Nitrate Negative Urine Bilirubin Negative Urine Urobilinogen Negative Ur Leukocyte Esterase Negative Urine Glucose Negative Salicylates < 2.50 Urine Opiates Screen None detected Acetaminophen < 15 Ur Barbiturates Screen None detected Ur Phencyclidine Scrn None detected Ur Amphetamines Screen None detected U Benzodiazepines Scrn None detected Urine Cocaine Screen None detected U Cannabinoids Screen None detected Serum Alcohol < 10 10/13/19 15:30 WBC 8.7 RBC 4.43 Hgb 12.5 Hct 38 MCV 87 MCH 28 MCHC 33 RDW 15 Plt Count 231 MPV 9.3 Neut % (Auto) 72.6 Lymph % (Auto) 19.1 [place] % (Auto) 6.4 Eos % (Auto) 1.5 Baso % (Auto) 0.4 Absolute Neuts (auto) 6.3 Absolute Lymphs (auto) 1.7 Absolute Monos (auto) 0.6 Absolute Eos (auto) 0.1 Absolute Basos (auto) 0.0 Absolute Nucleated RBC 0.0 Nucleated RBC % 0.2 Sodium Potassium Chloride Carbon Dioxide Anion Gap BUN Creatinine Est GFR ( Amer) Est GFR (Non-Af Amer) BUN/Creatinine Ratio Glucose Calcium Total Bilirubin AST ALT Alkaline Phosphatase Total Protein Albumin Globulin Albumin/Globulin Ratio TSH Beta HCG, Quant Urine Color Urine Appearance Urine pH Ur Specific [place] Urine Protein Urine Ketones Urine Blood Urine Nitrate Urine Bilirubin Urine Urobilinogen Ur Leukocyte Esterase Urine Glucose Salicylates Urine Opiates Screen Acetaminophen Ur Barbiturates Screen Ur Phencyclidine Scrn Ur Amphetamines Screen U Benzodiazepines Scrn Urine Cocaine Screen U Cannabinoids Screen Serum Alcohol
== END 2019-10-14 14:00 ==
LOC: ED 14:47
DX: F20.9 Schizophrenia, unspecified (principal); F41.9 Anxiety disorder, unspecified; F32.9 Major depressive disorder, single episode, unspecified; Z87.891 Personal history of nicotine dependence; Z79.899 Other long term (current) drug therapy; Z88.0 Allergy status to penicillin; Z88.8 Allergy status to other drugs, medicaments and biological substances
CPT/HCPCS: 36415; 80053; 80307; 80320; 80329; 81003; 84443; 84702; 85025; 93005; 99284; A9270-GY; G0480

== ENCOUNTER 2024-07-17 20:25 | Inpatient (IN) ==
[2024-07-17 21:37] LABS: ABS Basophils 0.1 10^3/uL (0.0-0.1); ABS Eosinophils 0.1 10^3/uL (0.0-0.5); ABS Lymphocytes 1.5 10^3/uL (1.0-4.8); ABS Monocytes 0.8 10^3/uL (0.0-0.9); ABS Neutrophils 9.4 10^3/uL (1.5-7.6); Eosinophil % 0.9 %; Hematocrit 37.5 % (35-45); Hemoglobin 12.5 g/dL (11.5-14.3); Lymphocyte % 12.4 %; Mean Corpuscular Hemoglobin 28.9 pg (27-33); Mean Corpuscular Hgb Conc 33.4 g/dL (31-36); Mean Corpuscular Volume 86.7 fL (80-97); Mean Platelet Volume 8.1 fL (7.5-11.2); Platelet Count 253 10^3/uL (150-450); Red Blood Count 4.33 10^6/uL (3.63-4.92); Red Cell Distribution Width 14.8 % (12-17); White Blood Count 11.8 10^3/uL (3.8-11.8)
[2024-07-17 22:32] LABS: ALT 19 U/L (7-52); AST 20 U/L (13-39); Acetaminophen < 15 mcg/mL; Albumin 4.1 g/dL (3.2-5.2); Albumin/Globulin Ratio 1.4 (1-3); Alcohol, S < 13 mg/dL (<13); Alkaline Phosphatase 109 U/L (35-149); Anion Gap 8 mmol/L (2-16); Blood Urea Nitrogen 14 mg/dL (6-24); CO2 Carbon Dioxide 25 mmol/L (22-32); Calcium 9.4 mg/dL (8.6-10.3); Chloride 102 mmol/L (101-111); Creatinine, Serum 0.75 mg/dL (0.51-0.95); Glucose 126 mg/dL (70-100); Potassium 4.1 mmol/L (3.5-5.0); Salicylate < 2.50 mg/dL (<30); Sodium 135 mmol/L (135-145); Total Bilirubin 0.3 mg/dL (0.2-1.0); Total Protein 7.1 g/dL (6.4-8.9); eGFR CKD-EPI 89.4 (>60)
[2024-07-17 22:45] LABS: TSH Ultra Thyroid Stim Horm 5.85 mcIU/mL (0.34-5.60)
[2024-07-18 06:44] LABS: Urine Appearance Clear; Urine Bilirubin Negative (Negative); Urine Blood Negative (Negative); Urine Color Yellow; Urine Glucose Negative (Negative); Urine Ketones Negative (Negative); Urine Nitrite Negative (Negative); Urine Protein Negative (Negative); Urine Specific Gravity 1.014 (1.002-1.030); Urine Urobilinogen Negative (Negative)
[2024-07-18 07:14] LABS: Urine Benzodiazepine Screen None Detected (None Detect); Urine Cannabinoids Screen None Detected (None Detect); Urine Opiates Screen None Detected (None Detect)
[2024-07-18 08:13] LABS: Urine Bacteria 1+ /HPF (Absent); Urine Red Blood Cell 1+(3-5/hpf) /HPF (0-Trace); Urine Squamous Epithelial Cell Present /HPF (Absent); Urine White Blood Cell 3+(>20/hpf) /HPF (0-Trace)
[2024-07-18] MEDS: Aspirin EC 81 mg TAB.EC (enteric coated) PO SCH (11:04)
[2024-07-18] MEDS: OLANZapine 10 mg TAB*ODT PO ONE (12:37)
[2024-07-18] MEDS ORDERED: Mirabegron 25 mg ER TAB (NF) PO SCH (21:00)
[2024-07-19 15:32] LABS: HDL Cholesterol 36.7 mg/dL
[2024-07-19 15:43] LABS: Free T4 0.89 ng/dL (0.61-1.12)
[2024-07-21] MEDS ORDERED: Al Hydrox/Mg Hydrox/Simet LIQ 30 ML UDC PO PRN (23:39)
[2024-07-22] MEDS: Vitamin THERAPEUTIC TAB PO SCH (08:46)
[2024-07-28 09:05] VITALS: BP 172/114
[2024-07-29] MEDS: Influenza Vaccine *TRI* 2024-25* 0.5 ML SYRINGE IM ONE (11:06)
== END 2024-07-29 11:30 | disposition home or self-care (01) | DRG 885 ==
LOC: ED 20:25 → EDHOLD 07-18 01:04 → BSU 07-18 09:54
PROVIDERS: ADMIT Psychiatry & Neurology Psychiatry; ATTEND Psychiatry & Neurology Psychiatry